=== PATIENT | female | born 1950 | race Caucasian/White ===

== ENCOUNTER 2020-04-25 10:00 | Emergency (ER) | payer OTHER ==
[2020-04-25] MEDS ORDERED: MORPHINE 4 MG/ML SYR ONE (10:49)
[2020-04-25] MEDS ORDERED: DIAZEPAM 10 MG/2 ML INJ SYRINGE ONE (10:49)
[2020-04-25] MEDS ORDERED: ONDANSETRON 4 MG/2 ML VIAL ONE (10:50)
[2020-04-25] MEDS ORDERED: dexAMETHasone 10 MG/ML VIAL ONE (10:50)
--- NOTE | 2020-04-25 11:42 | RAD REPORT ---
EXAM DESCRIPTION: US - Extremity Venous Uni Ltd - 04/25/2020 10:55 am CLINICAL HISTORY: PAIN, left leg COMPARISON: None. TECHNIQUE: Real-time sonographic evaluation of the left lower extremity deep venous system was perfo rmed. FINDINGS: Normal compressibility, flow augmentation, phasic flow and spontaneous flow are identified in the left lower extremity common femoral, superficial femoral, popliteal and posterior tibial vein s. No intraluminal filling defects seen. IMPRESSION: No DVT in the left lower extremity.
[2020-04-25] MEDS ORDERED: FENTANYL CITR 100 MCG/2 ML ONE (14:12)
--- NOTE | 2020-04-25 15:46 | RAD REPORT ---
EXAM DESCRIPTION: MRI - Lumbar Spine Wo Con - 04/25/2020 2:38 pm CLINICAL HISTORY: Left radiculopathy COMPARISON: None. TECHNIQUE: Sagittal T1, T2 and STIR weighted sequences were obtained. Axial T1 and T2 sequences were obtained through the lumbar disc levels. FINDINGS: Very large disc bulge L1-2 with disc space narrowing and osteophytes. The thecal sac measu res 7.5 millimeters. Lateral recesses are narrowed. Moderate to marked narrowing of the neural forami na. Abnormal signal involves vertebral endplates of L1 and L2. Disc bulge and facet hypertrophy L2-3 resulting in moderate narrowing of the right neural foramina Disc bulge, ligamentum flavum facet hypertrophy L3-4. The thecal sac measures 7.5 millimeters. Modera te narrowing of the right mild to moderate narrowing left neural foramina Disc bulge with annular fissure L4-5. Ligamentum flavum and facet hypertrophy. Thecal sac measures 9 millimeters. Mild to moderate narrowing of the right and mild narrowing of the neural foramina Spondylosis L5-S1 resulting in moderate narrowing of the left neural foramina Disc bulge T12-L1 IMPRESSION: Spondylosis L1-2 result in mild to moderate central spinal stenosis. There is also moder [id number] bilateral foraminal stenosis. Abnormal signal which involves the vertebral endplates pr obably degenerative in nature. Inflammation/infection can also have this appearance and should be cor related clinically with appropriate lab values. Spondylosis L3-4 resulting in mild to moderate central spinal stenosis
--- NOTE | 2020-04-25 17:37 | RAD REPORT ---
EXAM DESCRIPTION: RAD - Hip Left 2 View - 04/25/2020 3:27 pm CLINICAL HISTORY: Left hip pain FINDINGS: No fracture or dislocation is seen. Bones are osteoporotic. Mild osteoarthritis involves the left hip
--- NOTE | 2020-04-25 17:40 | ER ---
Nurse's Notes [facility] Name: Sherrie Kim Age: 69 yrs Sex: Female : 1950 Arrival Date: 04/25/2020 Time: 10:01 Bed 18 Private MD: Sherrie Romero Diagnosis: Sciatica, left side Presentation: 04/25 10:11 Chief complaint: EMS states: "Pt is reporting left hip pain that travels down her left jd3 leg. reports it feels like her sciatic pain.". Coronavirus screen: At this time, the client does not indicate any symptoms associated with coronavirus-19. Ebola Screen: Patient negative for fever greater than or equal to 101.5 degrees Fahrenheit, and additional compatible Ebola Virus Disease symptoms. Initial Sepsis Screen: Does the patient meet any 2 criteria? No. Patient's initial sepsis screen is negative. Does the patient have a suspected source of infection? No. Patient's initial sepsis screen is negative. Risk Assessment: Do you want to hurt yourself or someone else? Patient reports no desire to harm self or others. Onset of symptoms was April 25, 2020. 10:11 Method Of Arrival: EMS: [facility] jd3 10:11 Acuity: NILESH 3 jd3 Historical: - Allergies: 10:15 GABAPENTIN; jd3 - Home Meds: 10:15 Omeprazole Oral [Active]; atorvastatin oral oral [Active]; ibuprofen Oral [Active]; jd3 metaxalone oral oral [Active]; - PMHx: 10:15 sciatic pain; jd3 - Immunization history:: Adult Immunizations unknown. - Social history:: Smoking status: unknown. Screenin:18 Abuse screen: Denies threats or abuse. Nutritional screening: No deficits noted. jd3 Tuberculosis screening: No symptoms or risk factors identified. Fall Risk Ambulatory Aid- None/Bed Rest/Nurse Assist (0 pts). Gait- Normal/Bed Rest/Wheelchair (0 pts) Mental Status- Oriented to own ability (0 pts). Total Tello Fall Scale indicates No Risk (0-24 pts). Assessment: 10:17 General: Appears in no apparent distress. uncomfortable, Behavior is calm, cooperative, jd3 appropriate for age. Pain: Complains of pain in left hip Pain radiates to left leg Quality of pain is described as sharp, shooting. Neuro: Level of Consciousness is awake, alert, obeys commands, Oriented to person, place, time, situation. Cardiovascular: Denies chest pain, Capillary refill < 3 seconds Patient's skin is warm and dry. Respiratory: Airway is patent Respiratory effort is even, unlabored, Respiratory pattern is regular, symmetrical, Denies cough, shortness of breath. GI: No signs and/or symptoms were reported involving the gastrointestinal system. : No signs and/or symptoms were reported regarding the genitourinary system. EENT: No signs and/or symptoms were reported regarding the EENT system. Derm: Skin is intact, Skin is dry, Skin is normal, Skin temperature is warm. Musculoskeletal: Circulation, motion, and sensation intact. Range of motion: limited in left hip. 11:30 Reassessment: Patient appears in no apparent distress at this time. No changes from jd3 previously documented assessment. Patient and/or family updated on plan of care and expected duration. Pain level reassessed. Patient is alert, oriented x 3, equal unlabored respirations, skin warm/dry/pink. 12:30 Reassessment: Patient appears in no apparent distress at this time. No changes from jd3 previously documented assessment. Patient and/or family updated on plan of care and expected duration. Pain level reassessed. Patient is alert, oriented x 3, equal unlabored respirations, skin warm/dry/pink. 13:32 Reassessment: Patient appears in no apparent distress at this time. Patient and/or jd3 family updated on plan of care and expected duration. Pain level reassessed. Patient is alert, oriented x 3, equal unlabored respirations, skin warm/dry/pink. 14:30 Reassessment: Patient appears in no apparent distress at this time. No changes from jd3 previously documented assessment. Patient and/or family updated on plan of care and expected duration. Pain level reassessed. Patient is alert, oriented x 3, equal unlabored respirations, skin warm/dry/pink. 15:39 Reassessment: Patient appears in no apparent distress at this time. Patient and/or jd3 family updated on plan of care and expected duration. Pain level reassessed. Patient is alert, oriented x 3, equal unlabored respirations, skin warm/dry/pink. pt reports some relief from pain medication, but continues to reports pain, provider notified. 16:47 Reassessment: Patient appears in no apparent distress at this time. Patient and/or jd3 family updated on plan of care and expected duration. Pain level reassessed. Patient is alert, oriented x 3, equal unlabored respirations, skin warm/dry/pink. awaiting results. 18:00 Reassessment: Patient appears in no apparent distress at this time. Patient and/or jd3 family updated on plan of care and expected duration. Pain level reassessed. Patient is alert, oriented x 3, equal unlabored respirations, skin warm/dry/pink. Patient states feeling better. 18:20 Reassessment: Patient appears in no apparent distress at this time. Patient and/or jd3 family updated on plan of care and expected duration. Pain level reassessed. Patient is alert, oriented x 3, equal unlabored respirations, skin warm/dry/pink. Vital Signs: 10:15 BP 122 / 68; Pulse 60; Resp 16 S; Temp 97.9(TE); Pulse Ox 100% on R/A; Weight 90.72 kg jd3 (R); Height 5 ft. 2 in. (157.48 cm) (R); Pain 10/10; 13:32 BP 129 / 79; Pulse 89; Resp 17 S; Pulse Ox 98% on R/A; jd3 15:39 BP 129 / 74; Pulse 97; Resp 17 S; Pulse Ox 96% on R/A; jd3 16:48 BP 119 / 71; Pulse 98; Resp 17 S; Pulse Ox 95% on R/A; jd3 17:59 BP 128 / 81; Pulse 103; Resp 17 S; Pulse Ox 95% on R/A; jd3 10:15 Body Mass Index 36.58 (90.72 kg, 157.48 cm) jd3 ED Course: 10:01 Patient arrived in ED. am2 10:03 Sherrie Romero FNP-C is Private Physician. am2 10:03 Alfredo Gomez PA is [facility]. jmm 10:03 Alexander Woodson MD is Attending Physician. jmm 10:11 Hector Paris, LADARIUS is Primary Nurse. jd3 10:12 Triage completed. jd3 10:16 Arm band placed on. jd3 10:18 Patient has correct armband on for positive identification. Bed in low position. Call jd3 light in reach. Side rails up X2. Pulse ox on. NIBP on. 10:28 Inserted saline lock: 24 gauge in right hand, using aseptic technique. jd3 10:55 US Extremity Venous Unilateral Ltd In Process Unspecified. EDMS 14:38 MRI Lumbar Spine wo Con In Process Unspecified. EDMS 15:27 Hip Left 2 View XRAY In Process Unspecified. EDMS 17:39 Julian Saxena MD is Referral Physician. [facility] 17:59 No provider procedures requiring assistance completed. jd3 18:20 IV discontinued, intact, bleeding controlled, No redness/swelling at site. Pressure jd3 dressing applied. Administered Medications: 10:42 Drug: Zofran (Ondansetron) 4 mg Route: IVP; Site: right hand; jd3 11:40 Follow up: Response: No adverse reaction jd3 10:42 Drug: Valium 5 mg Route: IVP; Site: right hand; jd3 11:40 Follow up: Response: No adverse reaction jd3 10:42 Drug: Decadron - Dexamethasone 10 mg Route: IVP; Site: right hand; jd3 11:40 Follow up: Response: No adverse reaction jd3 10:43 Drug: morphine 4 mg Route: IVP; Site: right hand; jd3 11:40 Follow up: Response: No adverse reaction; RASS: Alert and Calm (0) jd3 14:00 Drug: fentaNYL (PF) 50 mcg Route: IVP; Site: right hand; jd3 15:00 Follow up: Response: No adverse reaction; RASS: Alert and Calm (0) jd3 17:59 Drug: Soma (carisoprodol) 350 mg Route: PO; jd3 18:20 Follow up: Response: No adverse reaction jd3 Outcome: 17:40 Discharge ordered by . [facility] 18:20 Discharged to home via wheelchair, with family. jd3 18:20 Condition: stable 18:20 Discharge instructions given to patient, Instructed on discharge instructions, follow up and referral plans. medication usage, Demonstrated understanding of instructions, follow-up care, medications, Prescriptions given X 2. 18:20 Patient left the ED. jd3 Signatures: Dispatcher [employer] EDMS Alfredo Gomez PA PA jmm Moreno, Amanda am2 Paris, Hector, RN RN jd3
--- NOTE | 2020-04-25 17:40 | EDPHYS ---
Physician Documentation [facility] Name: Sherrie Kim Age: 69 yrs Sex: Female : 1950 Arrival Date: 04/25/2020 Time: 10:01 Bed 18 Private MD: Sherrie Romero ED Physician Alexander Woodson HPI: 04/25 10:18 This 69 yrs old Female presents to ER via EMS with complaints of Hip Pain. jmm 10:18 The patient or guardian reports pain. The complaints affect the buttocks and left leg jmm and left hip. Onset: The symptoms/episode began/occurred this morning. Modifying factors: The symptoms are alleviated by remaining still, the symptoms are aggravated by any movement. Associated signs and symptoms: Pertinent negatives: incontinence, weakness. The patient has experienced similar episodes in the past, several times. Historical: - Allergies: 10:15 GABAPENTIN; jd3 - Home Meds: 10:15 Omeprazole Oral [Active]; atorvastatin oral oral [Active]; ibuprofen Oral [Active]; jd3 metaxalone oral oral [Active]; - PMHx: 10:15 sciatic pain; jd3 - Immunization history:: Adult Immunizations unknown. - Social history:: Smoking status: unknown. ROS: 10:18 Constitutional: Negative for fever, chills, and weight loss, Cardiovascular: Negative jmm for chest pain, palpitations, and edema, Respiratory: Negative for shortness of breath, cough, wheezing, and pleuritic chest pain. 10:18 MS/extremity: Positive for pain. 10:18 All other systems are negative. Exam: 10:18 Constitutional: This is a well developed, well nourished patient who is awake, alert, jmm and in no acute distress. Head/Face: atraumatic. Eyes: EOMI, no conjunctival erythema appreciated ENT: Moist Mucus Membranes Neck: Trachea midline, Supple Chest/axilla: Normal chest wall appearance and motion. Cardiovascular: Regular rate and rhythm. No edema appreciated Respiratory: Normal respirations, no respiratory distress appreciated Abdomen/GI: Non distended, soft Back: Normal ROM Skin: General appearance color normal 10:18 Musculoskeletal/extremity: left leg pain on ROM. 10:18 Neuro: Orientation: is normal, Mentation: is normal, Memory: is normal. 10:18 Psych: Behavior/mood is pleasant, cooperative. Vital Signs: 10:15 BP 122 / 68; Pulse 60; Resp 16 S; Temp 97.9(TE); Pulse Ox 100% on R/A; Weight 90.72 kg jd3 (R); Height 5 ft. 2 in. (157.48 cm) (R); Pain 10/10; 13:32 BP 129 / 79; Pulse 89; Resp 17 S; Pulse Ox 98% on R/A; jd3 15:39 BP 129 / 74; Pulse 97; Resp 17 S; Pulse Ox 96% on R/A; jd3 16:48 BP 119 / 71; Pulse 98; Resp 17 S; Pulse Ox 95% on R/A; jd3 17:59 BP 128 / 81; Pulse 103; Resp 17 S; Pulse Ox 95% on R/A; jd3 10:15 Body Mass Index 36.58 (90.72 kg, 157.48 cm) jd3 MDM: 10:12 Patient medically screened. sawyer 17:38 Data reviewed: vital signs, nurses notes. Counseling: I had a detailed discussion with nghia the patient and/or guardian regarding: the historical points, exam findings, and any diagnostic results supporting the discharge/admit diagnosis, lab results, radiology results, the need for outpatient follow up, to return to the emergency department if symptoms worsen or persist or if there are any questions or concerns that arise at home. ED course: Pain mildly relieved in the ED. Patient is advised to follow up with spine/ortho/pain management for further evaluation. Patient understood and agrees with the plan of care. . 04/25 10:20 Order name: US Extremity Venous Unilateral Ltd; Complete Time: 11:56 [facility] 04/25 13:45 Order name: MRI Lumbar Spine wo Con; Complete Time: 15:50 [facility] 04/25 14:07 Order name: Hip Left 2 View XRAY; Complete Time: 17:38 [facility] 04/25 10:17 Order name: Saline Lock; Complete Time: 10:28 [facility] Administered Medications: 10:42 Drug: Zofran (Ondansetron) 4 mg Route: IVP; Site: right hand; jd3 11:40 Follow up: Response: No adverse reaction jd3 10:42 Drug: Valium 5 mg Route: IVP; Site: right hand; jd3 11:40 Follow up: Response: No adverse reaction jd3 10:42 Drug: Decadron - Dexamethasone 10 mg Route: IVP; Site: right hand; jd3 11:40 Follow up: Response: No adverse reaction jd3 10:43 Drug: morphine 4 mg Route: IVP; Site: right hand; jd3 11:40 Follow up: Response: No adverse reaction; RASS: Alert and Calm (0) jd3 14:00 Drug: fentaNYL (PF) 50 mcg Route: IVP; Site: right hand; jd3 15:00 Follow up: Response: No adverse reaction; RASS: Alert and Calm (0) jd3 17:59 Drug: Soma (carisoprodol) 350 mg Route: PO; jd3 18:20 Follow up: Response: No adverse reaction jd3 Disposition: 04/26 09:45 Co-signature as Attending Physician, Alexander Woodson MD I agree with the assessment and sawyer plan of care. Disposition: 04/25/20 17:40 Discharged to Home. Impression: Sciatica, left side. - Condition is Stable. - Discharge Instructions: Sciatica. - Prescriptions for Prednisone 20 mg Oral Tablet - take 3 tablet by ORAL route once daily for 5 days; 15 tablet. orphenadrine citrate 100 mg Oral Tablet Sustained Release - take 1 tablet by ORAL route 2 times per day As needed; 20 tablet. - Medication Reconciliation Form, Thank You Letter, Antibiotic Education, Prescription Opioid Use form. - Follow up: Julian Saxena MD; When: 2 - 3 days; Reason: Recheck today's complaints, Continuance of care, Re-evaluation by your physician. Signatures: Dispatcher [employer] Alexander Donato MD MD cha Mickail, Joel, PA PA jmm Davies, Jonathon RN RN jd3 Corrections: (The following items were deleted from the chart) 04/25 18:20 17:40 04/25/2020 17:40 Discharged to Home. Impression: Sciatica, left side. Condition jd3 is Stable. Forms are Medication Reconciliation Form, Thank You Letter, Antibiotic Education, Prescription Opioid Use. Follow up: Julian Saxena; When: 2 - 3 days; Reason: Recheck today's complaints, Continuance of care, Re-evaluation by your physician. nghia
[2020-04-25] MEDS ORDERED: carisoprodoL 350 MG TAB PO ONE (18:00)
[2020-04-25 23:58] VITALS: TEMP 97.9
[2020-04-26 00:24] VITALS: O2SAT 95
[2020-04-26 00:26] VITALS: BP 128/81
== END 2020-04-25 18:20 | disposition home or self-care (01) ==
LOC: ER 10:00
DX: M54.32 Sciatica, left side (principal)
CPT/HCPCS: 73502; 93971; 72148; J3360; J3010; J1100; J2405; 96374; 96375; 99284

== ENCOUNTER 2020-05-05 12:45 | Emergency (ER) | payer OTHER ==
[2020-05-05 13:52] LABS: Absolute Lymphocytes (CBC) 4.4 K/uL (0.7-4.9); Basophils % 0.2 % (0-1.3); MPV 10.5 fL (7.6-11.3)
[2020-05-05 14:07] LABS: Urine Bacteria <20 /HPF (<20); Urine RBC <5 /HPF (NONE SEEN)
[2020-05-05 14:15] LABS: Albumin 3.4 g/dL (3.4-5.0); Bilirubin Direct 0.3 mg/dL (0-0.2); Bilirubin Total 0.8 mg/dL (0.2-1.0); Potassium 3.2 mmol/L (3.5-5.1); Protein, Total 7.6 g/dL (6.4-8.2)
[2020-05-05 14:20] LABS: Urine Blood NEGATIVE (NEG); Urine Protein 1+ (NEG); Urine pH 7.5 (5.0-7.0)
[2020-05-05] MEDS ORDERED: ONDANSETRON 4 MG/2 ML VIAL ONE ×2 (14:34→15:44)
[2020-05-05] MEDS ORDERED: NA CHLORIDE 0.9% 1,000 ML ONE ×2 (14:34→16:51)
[2020-05-05] MEDS ORDERED: FENTANYL CITR 100 MCG/2 ML ONE (14:34)
[2020-05-05 14:38] LABS: Blood Morphology Comment NOT SEEN (NOT SEEN); Platelet Estimate ADEQ
[2020-05-05] MEDS ORDERED: KCL 20 MEQ/100 mL IVPB 20 MEQ/100 ML BAG IV ONE (15:04)
--- NOTE | 2020-05-05 15:23 | RAD REPORT ---
EXAM DESCRIPTION: CT - [id number] - 05/05/2020 3:00 pm CLINICAL HISTORY: left arm weakness, headache COMPARISON: Abdomen Pelvis W Contrast dated 05/05/2020 TECHNIQUE: Axial 5 mm thick images of the head were obtained. Axial 2 mm thick images of the cervic al spine were obtained with sagittal and coronal reconstruction images generated and reviewed. All CT scans are performed using dose optimization technique as appropriate and may include automated exposure control or mA/KV adjustment according to patient size. FINDINGS: No hemorrhage or focal mass lesions seen. Cortical and subcortical diminished attenuation is present throughout much of the right cerebral hemisphere in the middle cerebral artery distributio n. Degree of decreased attenuation is variable. No midline shift or significant mass effect. Ramos mat ter - white matter differentiation is lost in several areas. No extra-axial fluid collections. Mastoi d air cells and paranasal sinuses are clear. No globe or orbit abnormality seen. Cervical body height and alignment are normal. No disk space narrowing. No fracture or acute bony abn ormality. Prominent facet joint degenerative change causes bilateral foraminal stenosis at C4-5 and C 5-6. Central canal detail is inherently limited. No paraspinal mass or hematoma. 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 The stroke invol ves all or most of the right middle cerebral artery distribution. This is suspected to be variable in age and may have occurred over multiple episodes. No acute cervical spine finding. Cervical spine degenerative changes present as detailed.
--- NOTE | 2020-05-05 15:35 | RAD REPORT ---
EXAM DESCRIPTION: CT - Abdomen Pelvis W Contrast - 05/05/2020 3:06 pm CLINICAL HISTORY: ABD PAIN COMPARISON: No comparisons TECHNIQUE: Biphasic, helical CT imaging of the abdomen and pelvis was performed following 100 ml non -ionic IV contrast. No oral contrast given. All CT scans are performed using dose optimization technique as appropriate and may include automated exposure control or mA/KV adjustment according to patient size. FINDINGS: No suspicious findings in the lung bases. The liver, spleen, and pancreas show no suspicious findings. Gallbladder is absent. No biliary tree d ilatation. Symmetric renal function is seen with no hydronephrosis or suspicious renal mass. No pyelonephritis o r acute parenchymal process. No bladder abnormalities. No adrenal abnormalities. Uterus and ovaries a re normal for age. Prominent circumferential wall thickening of the distal esophagus is present partially visualized on this study. Patient has a small hiatal hernia. No stomach, small bowel or colonic acute finding. Lluvia ent has moderate left-sided diverticulosis. No free air, free fluid or inflammatory stranding. No he rnia, mass or bulky lymphadenopathy. No suspicious bony findings. Advanced degenerative change at at the L1-2 disc levels. IMPRESSION: Prominent circumferential wall thickening of the distal esophagus only partially imaged on this abdomen CT study. Esophagitis and malignancy etiologies cannot be excluded on this limited vi sualization. Correlation is needed with any corresponding symptoms and follow-up imaging can be performed as warra nted. Remainder of the study, as detailed above, without acute or significant finding.
[2020-05-05 16:25] LABS: Urine Glucose NEGATIVE (Negative)
[2020-05-05] MEDS ORDERED: NA CHLORIDE 0.9% 100 ML ONE (16:51)
[2020-05-05] MEDS ORDERED: METRONIDAZOLE 500mg IVPB 500 MG/100 ML BAG IV ONE (16:53)
[2020-05-05] MEDS ORDERED: FOLIC ACID 5 MG/ML VIAL ONE (16:53)
[2020-05-05] MEDS ORDERED: CIPROFLOXACIN 400mg IV 400 MG/200 ML BAG IV ONE (16:53)
[2020-05-05] MEDS ORDERED: ASPIRIN 81 MG CHEWABLE TABLET ONE (17:00)
--- NOTE | 2020-05-05 17:14 | RAD REPORT ---
EXAM DESCRIPTION: CT - Head angio - 05/05/2020 4:44 pm CLINICAL HISTORY: left arm/hand weakness TECHNIQUE: During dynamic enhancement using nonionic IV contrast, axial 1 millimeter thick images of the head were obtained. Sagittal and axial reconstruction images were generated using MIP technique and reviewed. All CT scans are performed using dose optimization technique as appropriate and may include automated exposure control or mA/KV adjustment according to patient size. COMPARISON: CT head same date FINDINGS: No aneurysm or vascular malformation identified. Major venous sinuses are patent. The petrous and cavernous segments of the right internal carotid artery are occluded. Cervical portio ns of the right internal carotid are artery detailed in separate report. The supraclinoid tip of the right internal carotid artery is opacified. Distal left internal carotid artery shows atherosclerotic calcification but no significant luminal narrowing. Bilateral anterior cerebral arteries show no abnormality. Anterior communicating artery is present. L eft middle cerebral artery shows no suspicious finding. No named branch occlusion seen in the right m iddle cerebral artery distribution. There is an overall diminished vascular pattern involving the rig ht cerebral hemisphere. No vasculitis findings identified. Distal vertebral arteries and basilar artery show no suspicious findings. Posterior cerebral arteries show no significant disease. Small posterior communicating arteries are identifiable. IMPRESSION: Occlusion of the right internal carotid artery from skullbase to the supraclinoid segme nt. Cervical portions of the right internal carotid artery are detailed in separate report. Overall hypoperfusion of the right middle cerebral arteries without a specific named branch occlusion . Anterior communicating artery and small posterior communicating arteries are identifiable. The limited collateral pathways to the right middle cerebral artery distribution may account for the multiple variably aged areas of infarction in the right cerebral hemisphere.
--- NOTE | 2020-05-05 17:17 | RAD REPORT ---
EXAM DESCRIPTION: CT - Neck Angio - 05/05/2020 4:44 pm CLINICAL HISTORY: left arm/hand weakness, right cerebral CVA, abnormal CT Head TECHNIQUE: During dynamic enhancement using nonionic IV contrast, axial 2 mm thick images of the nec k were obtained. Sagittal and axial reconstruction images were generated using MIP technique and revi ewed. All CT scans are performed using dose optimization technique as appropriate and may include automated exposure control or mA/KV adjustment according to patient size. COMPARISON: CT head same date, CTA head same date FINDINGS: No aneurysm or vascular malformation identified. No aortic arch or great vessel origin abnormality seen. Vertebral artery origins unremarkable as well . Right internal carotid artery is occluded from origin to the supraclinoid intracranial termination. No contrast identifiable within the lumen of the right internal carotid artery. The left internal ca rotid artery and bilateral common carotid arteries show no suspicious finding. No basilar artery abno rmality. IMPRESSION: Occlusion of the right internal carotid artery from origin to supraclinoid intracranial termination.
--- NOTE | 2020-05-05 18:10 | EDPHYS ---
Physician Documentation [facility] Name: Sherrie Kim Age: 69 yrs Sex: Female : 1950 Arrival Date: 05/05/2020 Time: 12:53 Bed 15 Private MD: ED Physician Adrian Adams HPI: 05/05 13:25 This 69 yrs old Female presents to ER via Wheelchair with complaints of cp Diarrhea, Nausea. 13:25 The patient presents to the emergency department with nausea, that is mild, abdominal cp pain, of the left upper quadrant and left lower quadrant, and does not radiate. Onset: The symptoms/episode began/occurred this morning. 13:25 Possible causes: unknown. Associated signs and symptoms: Pertinent positives: diarrhea, cp vomiting, Pertinent negatives: constipation, fever, GI bleeding. Severity of symptoms: in the emergency department the symptoms are unchanged despite home interventions. Patient also c/o left arm and left hand weakness times 1 month. Patient reports difficulty holding phone and dropping items with left hand for 1 month. Patient denies being evaluated for this left arm and hand weakness. Historical: - Allergies: 12:59 GABAPENTIN; ca1 - PMHx: 12:59 sciatic pain; High Cholesterol; ca1 - PSHx: 13:12 Cholecystectomy; Tubal ligation; ca1 - Immunization history:: Flu vaccine is not up to date. - Social history:: Smoking status: Patient reports the use of cigarette tobacco products, smokes one-half pack cigarettes per day. ROS: 13:30 Constitutional: Negative for body aches, chills, fever, poor PO intake. cp 13:30 Eyes: Negative for injury, pain, redness, and discharge. cp 13:30 ENT: Negative for ear pain, sore throat, difficulty swallowing, difficulty handling secretions. 13:30 Cardiovascular: Negative for chest pain, edema, palpitations. 13:30 Respiratory: Negative for cough, shortness of breath, wheezing. 13:30 Abdomen/GI: Positive for abdominal pain, nausea, diarrhea, Negative for vomiting, constipation, black/tarry stool, rectal bleeding. 13:30 Back: Negative for pain at rest, pain with movement. 13:30 Skin: Negative for cellulitis, rash. 13:30 Neuro: Positive for weakness, of the left hand and left arm, Negative for altered mental status, dizziness, headache, numbness, speech changes, syncope. 13:30 All other systems are negative. Exam: 13:25 ECG was reviewed by the Attending Physician. cp 13:33 Constitutional: The patient appears in no acute distress, alert, awake, cp non-diaphoretic, non-toxic, well developed, well nourished. 13:33 Head/Face: Normocephalic, atraumatic. cp 13:33 Eyes: Periorbital structures: appear normal, Pupils: equal, round, and reactive to light and accomodation, Extraocular movements: intact throughout, Conjunctiva: normal, no exudate, no injection, Sclera: no appreciated abnormality, Lids and lashes: appear normal, bilaterally. 13:33 ENT: External ear(s): are unremarkable, Nose: is normal, Mouth: Lips: moist, Oral mucosa: moist, Posterior pharynx: Airway: no evidence of obstruction, patent. 13:33 Neck: ROM/movement: is normal, is supple, without pain, no range of motions limitations. 13:33 Chest/axilla: Inspection: normal, Palpation: is normal, no crepitus, no tenderness. 13:33 Cardiovascular: Rate: tachycardic, Rhythm: regular, Edema: is not appreciated, JVD: is not appreciated. 13:33 Respiratory: the patient does not display signs of respiratory distress, Respirations: normal, no use of accessory muscles, no retractions, labored breathing, is not present, Breath sounds: are clear throughout, no decreased breath sounds, no stridor, no wheezing. 13:33 Abdomen/GI: Inspection: abdomen appears normal, Bowel sounds: active, all quadrants, Palpation: soft, in all quadrants, mild abdominal tenderness, in the right upper quadrant, left upper quadrant and left lower quadrant, rebound tenderness, is not appreciated, voluntary guarding, is not appreciated, involuntary guarding, is not appreciated. 13:33 Back: pain, is absent, ROM is normal. 13:33 Neuro: Orientation: to person, place \\T\\ time. Mentation: is normal, Cerebellar function: Romberg testing is abnormal, left arm abnormal, unable to perform with left hand, heel to mccartney testing is normal, Motor: moves all fours, strength is 4/5 in the left hand and left arm, Sensation: no obvious gross deficits. Vital Signs: 12:55 BP 105 / 84; Pulse 140; Resp 16 S; Temp 97.6(TE); Pulse Ox 98% on R/A; Weight 90.72 kg ca1 (R); Height 5 ft. 2 in. (157.48 cm) (R); Pain 10/10; 13:11 Pulse 125 MON; ca1 13:13 Pulse 116; Resp 16 S; Pulse Ox 97% on R/A; jd3 15:01 BP 127 / 89; Pulse 120; Resp 18 S; Pulse Ox 97% on R/A; jd3 17:05 BP 130 / 90; Pulse 107; Resp 17 S; Pulse Ox 97% on R/A; jd3 18:29 BP 147 / 89; Pulse 109; Resp 17 S; Pulse Ox 97% on R/A; jd3 20:00 BP 125 / 82; Pulse 120; Resp 17; Pulse Ox 98% on R/A; jb4 21:15 BP 111 / 82; Pulse 117; Resp 16; Pulse Ox 98% on R/A; jb4 22:25 BP 106 / 76; Pulse 123; Resp 16; Pulse Ox 100% on R/A; jb4 12:55 Body Mass Index 36.58 (90.72 kg, 157.48 cm) ca1 NIH Stroke Scale Scores: 13:33 NIHSS Score: 3 cp MDM: 13:22 Patient medically screened. cp 14:00 Differential diagnosis: gastritis, diverticulitis, viral gastroenteritis, cp gastroenteritis, colitis, diverticulitis, CVA. 15:30 Physician consultation: Armand Gonzalez MD was called at 15:30, was contacted at 15:30, regarding patient's condition, results of head CT, after a discussion of the case, a recommendation for transfer for higher level of care is made, due to concern for possible occlusion of large cerebral vessel. Wants CT angio of head and neck performed. 16:00 Physician consultation: DR Longoria, neurologist \\[facility], will cp accept patient as transfer but at this time no interventional procedures are recommended due to symptom onset times 1 month approximately. 17:30 Data reviewed: vital signs, nurses notes, lab test result(s), EKG, radiologic studies, cp CT scan, plain films. 17:30 Test interpretation: by ED physician or midlevel provider: ECG. cp 05/05 13:39 Order name: Basic Metabolic Panel cp 05/05 13:39 Order name: CBC with Diff; Complete Time: 14:50 cp 05/05 14:51 Interpretation: Normal except: WBC 34.00; RBC 5.10; HGB 15.7; HCT 48.0; CHERISE% 82.2; LYM% cp 13.0; MNA 1.6; NEUT A 27.9. 05/05 13:39 Order name: Hepatic Function; Complete Time: 14:23 cp 05/05 14:23 Interpretation: Normal except: ALK 140; BILID 0.3; GLOB 4.2; A/G 0.8. cp 05/05 13:39 Order name: Lipase; Complete Time: 14:23 cp 05/05 14:51 Interpretation: LIP 59; Reviewed. cp 05/05 13:39 Order name: Magnesium; Complete Time: 14:23 cp 05/05 13:39 Order name: Urine Microscopic Only; Complete Time: 14:20 cp 05/05 13:40 Order name: Basic Metabolic Panel; Complete Time: 14:23 EDMS 05/05 14:23 Interpretation: Normal except: K 3.2; CL 96; GLUC 148; BUN 30; GFR 59. cp 05/05 13:43 Order name: COVID-19 : Document "Date of Symptom Onset" if Symptomatic. 05/05 14:02 Order name: Urine Dipstick--Ancillary (enter results); Complete Time: 16:40 dm5 05/05 14:51 Interpretation: Normal except: UKET 1+; UPH 7.5; UPROT 1+. cp 05/05 14:23 Order name: Lactate 05/05 14:23 Order name: Procalcitonin; Complete Time: 17:21 cp 05/05 13:39 Order name: CT Abd/Pelvis - IV Contrast Only; Complete Time: 15:46 cp 05/05 13:39 Order name: CT Head C Spine; Complete Time: 15:29 cp 05/05 14:23 Order name: Blood Culture Adult (2) cp 05/05 14:24 Order name: Lactate; Complete Time: 16:40 EDMS 05/05 14:38 Order name: Manual Differential EDMS 05/05 16:12 Order name: CT Head Angio; Complete Time: 17:21 cp 05/05 16:12 Order name: CT Neck Angio; Complete Time: 17:21 cp 05/05 20:39 Order name: SARS-COV-2 RT PCR EDMS 05/05 13:23 Order name: EKG; Complete Time: 13:25 ca1 05/05 13:23 Order name: EKG - Nurse/Tech; Complete Time: 13:23 ca1 05/05 13:39 Order name: IV Saline Lock; Complete Time: 13:43 cp 05/05 13:39 Order name: Labs collected and sent; Complete Time: 13:43 cp 05/05 13:39 Order name: Urine Dipstick-Ancillary (obtain specimen); Complete Time: 14:00 cp EC: Rate is 123 beats/min. Rhythm is regular. CA interval is normal. QRS interval is cp normal. QT interval is normal. T waves are Inverted in lead aVR. Interpreted by me. Reviewed by me. Administered Medications: 14:36 Drug: fentaNYL (PF) 25 mcg Route: IVP; Site: left forearm; jd3 15:33 Follow up: Response: No adverse reaction; RASS: Alert and Calm (0) jd3 14:37 Drug: Zofran (Ondansetron) 4 mg Route: IVP; Site: left forearm; jd3 15:30 Follow up: Response: No adverse reaction jd3 14:38 Drug: NS 0.9% 500 ml Route: IV; Rate: bolus; Site: left forearm; jd3 15:30 Follow up: Response: No adverse reaction; IV Status: Completed infusion jd3 14:39 Drug: NS 0.9% 500 ml Route: IV; Rate: 500 ml/hr; Site: left forearm; jd3 15:30 Follow up: Response: No adverse reaction; IV Status: Completed infusion jd3 15:33 Drug: Zofran (Ondansetron) 4 mg Route: IVP; Site: left forearm; jd3 16:30 Follow up: Response: No adverse reaction jd3 15:52 Drug: Potassium Chloride 20 mEq Route: IV; Rate: calculated rate; Site: left forearm; jd3 16:50 Follow up: Response: No adverse reaction; IV Status: Completed infusion jd3 17:32 Drug: NS 0.9% 1000 ml Route: IV; Rate: 1 bolus; Site: left forearm; jd3 18:30 Follow up: Response: No adverse reaction; IV Status: Completed infusion jd3 17:32 Drug: Aspirin Chewable Tablet 324 mg Route: PO; jd3 18:30 Follow up: Response: No adverse reaction jd3 17:33 Drug: foLIC Acid 1 mg Route: IVPB; Site: left forearm; jd3 18:30 Follow up: Response: No adverse reaction; IV Status: Completed infusion jd3 17:33 Drug: Cipro (ciprofloxacin) 400 mg Volume: 200 ml; Route: IVPB; Infused Over: 60 mins; jd3 Site: left forearm; 18:30 Follow up: Response: No adverse reaction; IV Status: Completed infusion jd3 17:33 Drug: metroNIDAZOLE 500 mg Volume: 100 ml; Route: IVPB; Infused Over: 30 mins; Site: jd3 right hand; 18:30 Follow up: Response: No adverse reaction; IV Status: Completed infusion jd3 Disposition: 05/06 07:27 Co-signature as Attending Physician, Adrian Adams MD I agree with the assessment and kdr plan of care. Disposition: 05/05/20 18:09 Transfer ordered to [facility]. Diagnosis are Diverticulosis of large intestine without perforation or abscess without bleeding, Cerebral infarction, Weakness - left arm and left hand. - Reason for transfer: Higher level of care. - Accepting physician is DR Juhi Hudson. - Condition is Stable. - Problem is new. - Symptoms have improved. NIH Stroke Scale - NIH Stroke Score Date: 05/05/2020 Time: 13:33 Total Score = 3 1a. Level of Consciousness (LOC) - 0(Alert) 1b. Level of Consciousness (LOC) (Year \\T\\ Age) - 0(Both) 1c. LOC Commands (Open \\T\\ Closes Eyes/Seamer Operator) - 1(One) 2. Best Gaze (Lateral Gaze Paresis) - 0(Normal) 3. Visual Field Loss - 0(No visual loss) 4. Facial Palsy - 0(Normal) 5a. Left Arm: Motor (10-second hold) - 1(Drift) 5b. Right Arm: Motor (10-second hold) - 0(No drift) 6a. Left Leg: Motor (5-second hold - always test supine) - 0(No drift) 6b. Right Leg: Motor (5-second hold - always test supine) - 0(No drift) 7. Limb Ataxia (finger/nose \\T\\ heel/mccartney - test with eyes open) - 1(Present in one limb) 8. Sensory Loss (pinprick arms/legs/face) - 0(Normal) 9. Best Language: Aphasia (description/naming/reading) - 0(No aphasia) 10. Dysarthria (speech clarity - read or repeat words) - 0(Normal) 11. Extinction and Inattention (visual/tactile/auditory/spatial/personal) - 0(No abnormality) Initials: cp Signatures: Dispatcher [employer] EDVA Adrian Adams MD MD [facility] Alexander Mcgregor PA PA cp Julian Dolan, RN RN jb4 Hector Paris RN RN jd3 Jolie Ware RN RN ca1 Corrections: (The following items were deleted from the chart) 05/05 13:12 12:59 PSHx: None; ca1 ca1 14:37 14:23 Tran ordered. cp jd3 14:51 14:20 Normal except: WBC 34.00; RBC 5.10; HGB 15.7; HCT 48.0; CHERISE% 82.2; LYM% cp 13.0. cp 18:40 18:09 05/05/2020 18:09 Transfer ordered to [facility]. Diagnosis is Diverticulosis of large intestine without perforation or abscess without bleeding. Reason for transfer: Higher level of care. Accepting physician is Doctor. Condition is Stable. Problem is new. Symptoms have improved. cp 19:51 13:43 CORONAVIRUS ordered. EDVA EDMS 22:33 18:40 05/05/2020 18:09 Transfer ordered to [facility]. Diagnosis is Diverticulosis of large intestine without perforation or abscess without bleeding; Cerebral infarction; Weakness - left arm and left hand. Reason for transfer: Higher level of care. Accepting physician is DR Juhi Hudson. Condition is Stable. Problem is new. Symptoms have improved. cp
--- NOTE | 2020-05-05 18:10 | ER ---
Nurse's Notes [facility] Name: Sherrie Kim Age: 69 yrs Sex: Female : 1950 Arrival Date: 05/05/2020 Time: 12:53 Bed 15 Private MD: Diagnosis: Diverticulosis of large intestine without perforation or abscess without bleeding;Cerebral infarction;Weakness-left arm and left hand Presentation: 05/05 12:55 Chief complaint: Patient states: N/V/Diarrhea started this morning. Abdominal pain more ca1 on the L side. L arm weakness been x 1 month, PCP is aware of the arm weakness. Reports headache at this time. Coronavirus screen: Client denies travel out of the [place] in the last 14 days. diarrhea, nausea, vomiting. Client presents with at least one sign or symptom that may indicate coronavirus-19. Standard/surgical mask placed on the client. Provider contacted for isolation considerations. Ebola Screen: Patient negative for fever greater than or equal to 101.5 degrees Fahrenheit, and additional compatible Ebola Virus Disease symptoms Patient denies exposure to infectious person. Patient denies travel to an Ebola-affected area in the 21 days before illness onset. No symptoms or risks identified at this time. Initial Sepsis Screen: Does the patient meet any 2 criteria? No. Patient's initial sepsis screen is negative. Does the patient have a suspected source of infection? No. Patient's initial sepsis screen is negative. Risk Assessment: Do you want to hurt yourself or someone else? Patient reports no desire to harm self or others. Onset of symptoms was May 05, 2020. 12:55 Method Of Arrival: Wheelchair ca1 12:55 Acuity: NILESH 2 ca1 Historical: - Allergies: 12:59 GABAPENTIN; ca1 - PMHx: 12:59 sciatic pain; High Cholesterol; ca1 - PSHx: 13:12 Cholecystectomy; Tubal ligation; ca1 - Immunization history:: Flu vaccine is not up to date. - Social history:: Smoking status: Patient reports the use of cigarette tobacco products, smokes one-half pack cigarettes per day. Screenin:13 Abuse screen: Denies threats or abuse. Nutritional screening: No deficits noted. jd3 Tuberculosis screening: No symptoms or risk factors identified. Fall Risk IV access (20 points). Ambulatory Aid- None/Bed Rest/Nurse Assist (0 pts). Gait- Normal/Bed Rest/Wheelchair (0 pts) Mental Status- Oriented to own ability (0 pts). Total Tello Fall Scale indicates No Risk (0-24 pts). Assessment: 13:12 General: Appears in no apparent distress. comfortable, Behavior is calm, cooperative, jd3 appropriate for age. Pain: Complains of pain in chest Quality of pain is described as pressure, Is intermittent. Neuro: Level of Consciousness is awake, alert, obeys commands, Oriented to person, place, time, situation, Poke In are weak on left Weakness in left arm(s). Cardiovascular: Reports chest pain, Heart tones present Capillary refill < 3 seconds Patient's skin is warm and dry. Rhythm is irregular. Respiratory: Airway is patent Respiratory effort is even, unlabored, Respiratory pattern is regular, symmetrical, Breath sounds are clear bilaterally. Denies cough, shortness of breath. GI: Abdomen is round non-distended, Patient currently denies abdominal pain, diarrhea, nausea, vomiting. : No signs and/or symptoms were reported regarding the genitourinary system. EENT: No signs and/or symptoms were reported regarding the EENT system. Derm: Skin is intact, Skin is dry, Skin is normal, Skin temperature is warm. Musculoskeletal: Circulation, motion, and sensation intact. Range of motion: limited in left arm. 15:01 Reassessment: Patient appears in no apparent distress at this time. No changes from jd3 previously documented assessment. Patient and/or family updated on plan of care and expected duration. Pain level reassessed. Patient is alert, oriented x 3, equal unlabored respirations, skin warm/dry/pink. 17:03 Reassessment: Patient appears in no apparent distress at this time. Patient and/or jd3 family updated on plan of care and expected duration. Pain level reassessed. Patient is alert, oriented x 3, equal unlabored respirations, skin warm/dry/pink. 18:28 Reassessment: Patient appears in no apparent distress at this time. No changes from jd3 previously documented assessment. Patient and/or family updated on plan of care and expected duration. Pain level reassessed. Patient is alert, oriented x 3, equal unlabored respirations, skin warm/dry/pink. 19:00 Reassessment: Patient appears in no apparent distress at this time. Patient and/or jb4 family updated on plan of care and expected duration. Pain level reassessed. Patient is alert, oriented x 3, equal unlabored respirations, skin warm/dry/pink. PT continues to have weakness in her left hand and arm and is unable to close her left hand. 20:00 Reassessment: Patient appears in no apparent distress at this time. No changes from jb4 previously documented assessment. Patient and/or family updated on plan of care and expected duration. Pain level reassessed. 21:00 Reassessment: Patient appears in no apparent distress at this time. Patient and/or jb4 family updated on plan of care and expected duration. Pain level reassessed. Patient is alert, oriented x 3, equal unlabored respirations, skin warm/dry/pink. PT ambulated to the restroom with a steady gait. 21:44 Reassessment: Patient appears in no apparent distress at this time. Patient and/or jb4 family updated on plan of care and expected duration. Pain level reassessed. Patient is alert, oriented x 3, equal unlabored respirations, skin warm/dry/pink. 22:20 Reassessment: PT reports feeling sweaty. Is diaphoretic, manual B/p is noted to be jb4 98/74 heart rate is 138. Provider notified and at the bedside. Pt assisted back into bed. 22:25 Reassessment: Pt is no longer diaphoretic. Heart rate has decreased to 123. B/p is jb4 106/76. PT reports feeling better laying down. Provider okayed pt to be transferred by EMS. PT remains A\T\Ox4 with even and unlabored respirations. Denies pain. Vital Signs: 12:55 BP 105 / 84; Pulse 140; Resp 16 S; Temp 97.6(TE); Pulse Ox 98% on R/A; Weight 90.72 kg ca1 (R); Height 5 ft. 2 in. (157.48 cm) (R); Pain 10/10; 13:11 Pulse 125 MON; ca1 13:13 Pulse 116; Resp 16 S; Pulse Ox 97% on R/A; jd3 15:01 BP 127 / 89; Pulse 120; Resp 18 S; Pulse Ox 97% on R/A; jd3 17:05 BP 130 / 90; Pulse 107; Resp 17 S; Pulse Ox 97% on R/A; jd3 18:29 BP 147 / 89; Pulse 109; Resp 17 S; Pulse Ox 97% on R/A; jd3 20:00 BP 125 / 82; Pulse 120; Resp 17; Pulse Ox 98% on R/A; jb4 21:15 BP 111 / 82; Pulse 117; Resp 16; Pulse Ox 98% on R/A; jb4 22:25 BP 106 / 76; Pulse 123; Resp 16; Pulse Ox 100% on R/A; jb4 12:55 Body Mass Index 36.58 (90.72 kg, 157.48 cm) ca1 NIH Stroke Scale Scores: 13:33 NIHSS Score: 3 cp ED Course: 12:53 Patient arrived in ED. ds1 12:58 Triage completed. ca1 12:59 Arm band placed on right wrist. ca1 13:11 Hector Paris, RN is Primary Nurse. jd3 13:11 Alexander Mcgregor PA is PHCP. cp 13:11 Adrian Adams MD is Attending Physician. cp 13:13 Patient has correct armband on for positive identification. Bed in low position. Call jd3 light in reach. Side rails up X2. equipment monitor phototypesetting on. Pulse ox on. NIBP on. 13:32 Initial lab(s) drawn, by tn, sent to lab. Inserted saline lock: 22 gauge in right kj1 forearm, using aseptic technique. Blood collected. 14:30 Inserted saline lock: 22 gauge in left forearm, using aseptic technique. jd3 15:00 CT Head C Spine In Process Unspecified. EDMS 15:07 CT Abd/Pelvis - IV Contrast Only In Process Unspecified. EDMS 16:44 CT Head Angio In Process Unspecified. EDMS 16:44 CT Neck Angio In Process Unspecified. EDMS 19:06 Primary Nurse role handed off by Hector Paris, LADARIUS jb4 19:06 Julian Dolan, LADARIUS is Primary Nurse. jb4 22:25 No provider procedures requiring assistance completed. Patient transferred, IV remains jb4 in place. Administered Medications: 14:36 Drug: fentaNYL (PF) 25 mcg Route: IVP; Site: left forearm; jd3 15:33 Follow up: Response: No adverse reaction; RASS: Alert and Calm (0) jd3 14:37 Drug: Zofran (Ondansetron) 4 mg Route: IVP; Site: left forearm; jd3 15:30 Follow up: Response: No adverse reaction jd3 14:38 Drug: NS 0.9% 500 ml Route: IV; Rate: bolus; Site: left forearm; jd3 15:30 Follow up: Response: No adverse reaction; IV Status: Completed infusion jd3 14:39 Drug: NS 0.9% 500 ml Route: IV; Rate: 500 ml/hr; Site: left forearm; jd3 15:30 Follow up: Response: No adverse reaction; IV Status: Completed infusion jd3 15:33 Drug: Zofran (Ondansetron) 4 mg Route: IVP; Site: left forearm; jd3 16:30 Follow up: Response: No adverse reaction jd3 15:52 Drug: Potassium Chloride 20 mEq Route: IV; Rate: calculated rate; Site: left forearm; jd3 16:50 Follow up: Response: No adverse reaction; IV Status: Completed infusion jd3 17:32 Drug: NS 0.9% 1000 ml Route: IV; Rate: 1 bolus; Site: left forearm; jd3 18:30 Follow up: Response: No adverse reaction; IV Status: Completed infusion jd3 17:32 Drug: Aspirin Chewable Tablet 324 mg Route: PO; jd3 18:30 Follow up: Response: No adverse reaction jd3 17:33 Drug: foLIC Acid 1 mg Route: IVPB; Site: left forearm; jd3 18:30 Follow up: Response: No adverse reaction; IV Status: Completed infusion jd3 17:33 Drug: Cipro (ciprofloxacin) 400 mg Volume: 200 ml; Route: IVPB; Infused Over: 60 mins; jd3 Site: left forearm; 18:30 Follow up: Response: No adverse reaction; IV Status: Completed infusion jd3 17:33 Drug: metroNIDAZOLE 500 mg Volume: 100 ml; Route: IVPB; Infused Over: 30 mins; Site: jd3 right hand; 18:30 Follow up: Response: No adverse reaction; IV Status: Completed infusion jd3 Outcome: 18:09 ER care complete, transfer ordered by MD. abrams 22:25 Transferred by ground EMS to [facility], Transfer form completed. jb4 X-rays sent w/ patient. 22:25 Condition: stable 22:25 Discharge instructions given to patient, Instructed on the need for transfer, Demonstrated understanding of instructions. 22:33 Patient left the ED. jb4 NIH Stroke Scale - NIH Stroke Score Date: 05/05/2020 Time: 13:33 Total Score = 3 1a. Level of Consciousness (LOC) - 0(Alert) 1b. Level of Consciousness (LOC) (Year \T\ Age) - 0(Both) 1c. LOC Commands (Open \T\ Closes Eyes/Auto Body Mechanic) - 1(One) 2. Best Gaze (Lateral Gaze Paresis) - 0(Normal) 3. Visual Field Loss - 0(No visual loss) 4. Facial Palsy - 0(Normal) 5a. Left Arm: Motor (10-second hold) - 1(Drift) 5b. Right Arm: Motor (10-second hold) - 0(No drift) 6a. Left Leg: Motor (5-second hold - always test supine) - 0(No drift) 6b. Right Leg: Motor (5-second hold - always test supine) - 0(No drift) 7. Limb Ataxia (finger/nose \T\ heel/mccartney - test with eyes open) - 1(Present in one limb) 8. Sensory Loss (pinprick arms/legs/face) - 0(Normal) 9. Best Language: Aphasia (description/naming/reading) - 0(No aphasia) 10. Dysarthria (speech clarity - read or repeat words) - 0(Normal) 11. Extinction and Inattention (visual/tactile/auditory/spatial/personal) - 0(No abnormality) Initials: cp Addendum: 05/09/2020 09:43 Addendum: Other faxed culture report to [facility]. pt still bd admitted to room 2239. Signatures: Dispatcher [employer] EDMS Kristen Castillo Demi ds1 Alexander Mcgregor PA PA cp Bryson, James, RN RN jb4 Hector Paris RN RN jd3 Acob, Cheryl, RN RN ca1 Luisa Hurst kj1 Corrections: (The following items were deleted from the chart) 05/05 13:12 12:59 PSHx: None; ca1 ca1 13:13 13:11 Pulse 116bpm; Resp 16bpm; Spontaneous; Pulse Ox 97% RA; jd3 jd3 18:40 13:12 Neuro: Level of Consciousness is awake, alert, obeys commands, Oriented jd3 to person, place, time, situation, jd3 18:40 13:12 Musculoskeletal: Circulation, motion, and sensation intact. Range of jd3 motion: intact in all extremities, jd3 22:33 22:25 Reassessment: Pt is no longer diaphoretic. Heart rate has decreased to jb4 123. B/p is 106/76. PT reports feeling better laying down. Provider okayed pt to be transferred by EMS jb4
[2020-05-06 01:04] VITALS: TEMP 97.6
[2020-05-06 01:18] VITALS: BP 106/76; O2SAT 100
--- NOTE | 2020-05-06 06:46 | EKG ---
Test Date: 2020-05-05 Test Time: 13:06:18 Stamping Operator: CHARLA MEASUREMENT RESULTS: Intervals: Rate: 123 WV: 134 QRSD: 74 QT: 336 QTc: 481 [place]: P: 58 WV: 134 QRS: 31 T: 27 INTERPRETIVE STATEMENTS: Sinus tachycardia with premature atrial complexes Right atrial enlargement ST & T wave abnormality, consider inferior ischemia Abnormal ECG No previous ECG available for comparison Electronically Signed On 05-06-20 06:44:13 CDT by James Chahal
== END 2020-05-05 22:33 | disposition short-term general hospital (02) ==
LOC: ER 12:45
DX: I63.9 Cerebral infarction, unspecified (principal); R29.703 NIHSS score 3; K57.30 Diverticulosis of large intestine without perforation or abscess without bleeding; F17.210 Nicotine dependence, cigarettes, uncomplicated; Z20.822 Contact with and (suspected) exposure to COVID-19; Z88.8 Allergy status to other drugs, medicaments and biological substances
CPT/HCPCS: 93005; 87040 ×2; 85025; 80048; 36415; 83735; 87205 ×4; 80076; 83605; 87077 ×2; 87186 ×2; 83690; 84145; 70450; 72125; 70496; 70498; 74177; 99285; U0003; Q9967; J3480; J3010; J7030 ×2; J2405 ×2; J0744; 81003; 81015

== ENCOUNTER 2020-08-13 10:40 | Emergency (ER) | payer OTHER ==
--- OUTSIDE RECORDS SUMMARY | 2020-08-13 11:12 | XMS REPORT | Continuity of Care Document ---
:1950 Author Organization [facility] t Address [address] [place] [address] Care Team Providers Name Role Phone Opal Salazar Primary Care Physician Mikie Hudson MD Attending Clinician Brenna LEBRON Attending Clinician Richard Cintron MD Attending Clinician Mariel Vazquez MD Attending Clinician Charla Varghese MD Attending Clinician Rashid Brown MD Attending Clinician Michael Patrick MD Attending Clinician Mikie HUDSON Attending Clinician Unavailable BRENNA Admitting Clinician Unavailable Payers Payer Name Policy Type Policy Effective Date Expiration Date Sour ce Number MEDICAID - MEDICAID [id number] 2019 SOLOMON Hart MGD CARESUPERIOR 00:00:00 - Medica l [id number]/ Ce nter /2019-Present [facility] - [id number] 2020 SOLOMON Hart MEDICARE MGD 00:00:00 - Medical CAREUNITED MEDICARE Cente r [id number] 2020-P resent MEDICAIDMEDICAID OF [id number] 2020 SOLOMON Hart [id number] 2020 00:00:00 - Medical -PresentMedicaid Center Problems Condition Condition Condition Status Onset Resolution Last Treating Co mments Source Name Details Category Date Date Treatment Clinician Date Leukocytos Leukocytos Disease Active [facility] - [facility]: Medical 00 [place] Diarrhea Diarrhea Disease [facility] - presumed presumed 00:00: Medica l infectious infectious 00 Ce nter origin origin Esophagiti Esophagiti Disease Active [facility] - 00:[facility]: Medical 00 [place] Stroke Stroke Disease Active [facility] - [facility] Medical 00 Center Allergies, Adverse Reactions, Alerts Allergy Allergy Status Severity Reaction(s) Onset Inactive Treating Comm ents Source Name Type Date Date Clinician Gabapent Propensi Active Other (See [facility] to Comments[facility] - adverse 00:00: Medical reaction 00 [place] s Social History Social Habit Start Date Stop Date Quantity Comments Source Sex Assigned At [facility] Cigarettes smoked 2020-05-09 2020-05-09 [facility] - current (pack per 00:00:00 00:00:00 [facility] day) - Reported Cigarette 2020-05-09 2020-05-09 [facility] - pack-years 00:00:00 00:00:00 [facility] Tobacco use and 2020-05-09 2020-05-09 Never used [facility] - exposure 00:00:00 00:00:00 [facility] Alcohol intake 2020-05-09 2020-05-09 Ex-drinker [facility] es - 00:00:00 00:00:00 (finding) [facility] Smoking Status Start Date Stop Date Source Current every day smoker 2020-05-09 00:00:00 [facility] Medications Ordered Filled Start Stop Current Ordering Indication Dosage Frequency Signature Comments Components Source Medication Medication Date Date Medication? Clinician (SIG) Name Name aspirin 81 2020- No 81mg QD Take [address] [facility] [address] [facility] EC 05-14- tablet (81 [facility] - tablet 00:00: 23:59 mg total) Medic al 00 :00 by mouth Center daily for 30 days. folic acid No 5mg QD Take [address] [address] (FOLVITE) 1 05-14-03 tablets (5 L ukes - MG tablet 00:00: 23:59 mg total) Me dical 00 :00 by mouth Center daily for 30 days. polyethylen 2020- No 17g QD Take [address] e glycol -04 15-03 by mouth [facility] - (GLYCOLAX) 00:00: 23:59 daily for M vicki 17 gram 00 :00 30 days. Center packet tiZANidine Yes 2mg Take [address] (ZANAFLEX) -02 by mouth [facility] - 2 MG tablet 19:04: every 6 Med ical 52 (six) Center hours as needed. metaxalone Yes 800mg Take [address] (SKELAXIN) 4-02 mg by [facility] - 800 MG 19:04: mouth 3 Medical tablet 52 (three) Center times daily as needed for Muscle spasms. ibuprofen Yes 800mg Take [address] (ADVIL,MOTR 4-02 mg by [facility] - IN) 800 MG 19:04: mouth Medica l tablet 52 every 8 Center (eight) hours as needed for Pain. omeprazole Yes 40mg QD Take [address] (PriLOSEC) -02 by mouth [facility] - 40 MG 19:04: daily. Medical capsule 52 [place] atorvastati 2020- No 10mg QD Take [address] [facility] (LIPITOR) -03 17- by mouth [facility] - 10 MG 10:29: 00:00 daily. Medical tablet 12 :00 [place] atorvastati Yes 10mg QD Take [address] [facility] (LIPITOR) -02 tablet (10 Guerda kes - 10 MG 00:00: mg total) Medical tablet 00 by mouth Center daily. senna 2020- No 8.6mg QD Take [address] (SENOKOT) - 05-02 tablet [facility] - 8.6 mg 00:00: 23:59 (8.6 mg Medical tablet 00 :00 total) by Center mouth nightly for 30 days. Vital Signs Vital Name Observation Time Observation Value Comments Source Systolic blood 2020-05-13 15:30:00 96 mm[Hg] [facility] Diastolic blood 2020-05-13 15:30:00 64 mm[Hg] [facility] Heart rate 2020-05-13 15:30:00 89 /min [facility] Body temperature 2020-05-13 15:30:00 36.44 [facility] Respiratory rate 2020-05-13 15:30:00 18 /min [facility] Oxygen saturation in 2020-05-13 15:30:00 96 /min [facility] - Arterial blood by Medical Ce nter Pulse oximetry Body height 2020-05-06 00:21:00 157.5 cm [facility] Body weight 2020-05-06 00:21:00 90.719 kg [facility] BMI 2020-05-06 00:21:00 36.58 kg/m2 [facility] Procedures Procedure Date / Time Performed Performing Clinician [facility] e SARS-COV2/RT-PCR ([facility] & 2020-05-13 09:26:00 Brenna, [facility] - REF LABS) [facility] CBC W/PLT COUNT & AUTO 2020-05-13 04:52:00 Marlene, David Hebert [facility] COMPREHENSIVE METABOLIC 2020-05-13 04:52:00 Marlene, David Hebert [facility] CBC W/PLT COUNT & AUTO 2020-05-12 05:44:00 Marlene, David Hebert [facility] METABOLIC 2020-05-12 05:44:00 Marlene, David Hebert [facility] CBC W/PLT COUNT & AUTO 2020-05-11 05:06:00 MarleneDavid [facility] METABOLIC 2020-05-11 05:06:00 Marlene, David Hebert [facility] HEPATITIS C PCR, 2020-05-10 16:21:00 Marlene, David Hebert [facility] HEPATITIS C GENOTYPE 2020-05-10 16:21:00 Marlene, David Hebert [facility] HEPATITIS PANEL, ACUTE 2020-05-10 05:46:00 Marlene, David Hebert [facility] CBC W/PLT COUNT & AUTO 2020-05-10 05:46:00 Marlene, David Hebert [facility] 2020-05-10 05:46:00 Marlene, David Hebert [facility] US ABDOMEN LIMITED 2020-05-09 14:42:00 Marlene, David Hebert [facility] CBC W/PLT COUNT & AUTO 2020-05-09 12:01:00 Marlene, David Hebert [facility] 2020-05-09 12:01:00 Marlene, David Hebert [facility] (CELLAVISION MANUAL DIFF) 2020-05-09 12:01:00 Marlene, David [address] [facility] CT BRAIN WITHOUT IV 2020-05-09 00:01:[address] [facility] REPORT OF PROCEDURE - 2020-05-08 08:50:18 Maude Varghese [facility] ENDOSCOPY [facility] TISSUE EXAM 2020-05-08 08:18:00 Maude Varghese [facility] UPPER ENDOSCOPY,BIOPSY 2020-05-08 08:00:[address] [facility] CBC W/PLT COUNT & AUTO 2020-05-08 04:46:00 SOLOMON Ceja [facility] 2020-05-08 04:46:00 Brenna [facility] (CELLAVISION MANUAL DIFF) 2020-05-08 04:46:00 ANGUS Ceja [facility] CTA BRAIN 2020-05-07 18:15:00 Jack Cintron [facility] URINALYSIS W/ REFLEX 2020-05-07 17:53:[address] [facility] URINE CULTURE [facility] ECHO W CONTRAST & DOPPLER 2020-05-07 15:40:57 Jack Cintron [facility] XR CHEST 1 VIEW 2020-05-07 15:15:00 Jack Cintron [facility] BLOOD CULTURE 2020-05-07 13:38:00 Jack Cintron [facility] CBC W/PLT COUNT & AUTO 2020-05-07 04:34:00 Brenna [facility] S t [facility] DIFFERENTIAL [facility] COMPREHENSIVE METABOLIC 2020-05-07 04:34:00 Brenna [facility] (CELLAVISION MANUAL DIFF) 2020-05-07 04:34:00 Brenna [facility] ECG 12-LEAD 2020-05-06 15:16:23 Jack Cintron [facility] SARS-COV2/RT-PCR ([facility] & 2020-05-06 13:41:00 [facility] IRON, TIBC, % SAT. 2020-05-06 06:51:00 Colby Verduzco [facility] (WITHOUT FERRITIN) [facility] W/[facility]T [facility] & AUTO 2020-05-06 06:51:00 Brenna [facility] S t [facility] (CELLAVISION MANUAL DIFF) 2020-05-06 06:51:00 Brenna [facility] COMPREHENSIVE METABOLIC 2020-05-06 06:51:00 Brenna [facility] PROTHROMBIN TIME/INR 2020-05-06 06:51:00 [facility] LIPID PANEL 2020-05-06 06:51:00 [facility] HEMOGLOBIN A1C 2020-05-06 06:51:00 [facility] VITAMIN B12 AND FOLATE 2020-05-06 06:51:00 [facility] S [facility] RPR 2020-05-06 06:51:00 [facility] C-REACTIVE PROTEIN 2020-05-06 06:51:00 Brenna [facility] TSH/FREE T4 IF INDICATED 2020-05-06 06:51:00 Brenna [facility] PERIPHERAL BLOOD SMEAR - 2020-05-06 06:51:00 Brenna [facility] - PATHOLOGIST REVIEW [facility] r FERRITIN 2020-05-06 06:51:00 Colby Verduzco [facility] Plan of Care Planned Activity Planned Date Details Comments Source Future Scheduled 2020-10-[address] [facility] - Test 00:00:00 (Season Ended) [code = Medic al Center INFLUENZA VACCINE (Season Ended)] Future Scheduled 2020-02-[address] [facility] - Test 00:00:00 (12+) [code = Medical Center DEPRESSION SCREENING (12+)] Future Scheduled 2020-02-12 Medicare IPPE (WELCOME [facility] - Test 00:00:00 TO MEDICARE) [code = [facility] Medicare IPPE (WELCOME TO MEDICARE)] Future Scheduled 2017 PNEUMOCOCCAL 65+ [facility] - Test 00:00:00 (1 of 1 - Medical Center [id number] PCV13) [code = PNEUMOCOCCAL 65+ YRS (1 of 1 - [id number] PCV13)] Future Scheduled 2002 SHINGLES VACCINES ([address] [facility] - Test 00:00:00 of 2) [code = SHINGLES Medic al Center VACCINES (1 of 2)] Future Scheduled 1971-09-23 DTAP/TDAP/TD VACCINES [facility] - Test 00:00:00 (1 - Tdap) [code = Medical C enter DTAP/TDAP/TD VACCINES (1 - Tdap)] Future Scheduled 1964 COVID-19 VACCINE (1) [facility] - Test 00:00:00 [code = COVID-[address] VACCINE (1)] Future Scheduled [address] [facility] - Test 00:00:00 malignant neoplasm of Medica l Center breast (procedure) [code = 068658462] Future Scheduled [address] [facility] - Test 00:00:00 malignant neoplasm of Medica l Center colon (procedure) [code = 013651425] Results Test Description Test Time Test Comments Results Result Comments Source Hepatitis C genotype 2020-05-16 09:09:00 Test Item Value Reference Range Interpretation Comme nts HCV Genotype, 1a The method us ed in this test is RT-PCR and LiPA (test code = reversehyb ridization (Line Probe) of the 5' 7676931) UTR and corereg ion of the HCV genome. The analytical perf ormance characteristics of thisassay have been determined by [facility]. The modifications h ave not beencleared or approved by the FDA. Thi s assay has beenvalidated pursuant to the CLIA regulations and isused for clinical pu rposes. For additional information, pl ease refer tohttp://educat ion.Narvii /faq/HCVGenotyp ing(This link id being provided for information al/educational purposes only.) KAYLA (test code = Performing Lab KAYLA) *QDID [facility] [address] [place] [address] Joseph N[facility] (Asymptomatic ONLY)2020-05-13 17:07:00 Test Item Value Reference Range Interpretation Comments SARS-COV2/RT-PCR Negative Not Detected, (test code = Negative, See 79605-9) external report for linked test SARS-COV-2 [facility] PERFORMING LAB (test code = 74413-0) KAYLA (test code = Negative result for this KAYLA) test determines that SARS-CoV-2 RNA was not present in the specimen above the Limit of Detection (LOD). However, Negative results do not preclude SARS-CoV-2 infection and should not be used as the sole basis for treatment or patient management decisions. Negative results must be combined with clinical observations, patient history, and epidemiological information. A false negative result may occur if a specimen is improperly collected, transported or handled. A false negative result should be considered if patient's recent exposures or clinical presentation indicate that COVID-19 (SARS-CoV-2) is likely and diagnostic tests for other causes of illness are negative. Re-testing should be considered in cases of suspected false negatives. The limit of detection for this assay is 800 copies/mL. This SARS CoV-2 test is a real-time RT-PCR test intended for the qualitative detection of nucleic acid from SARS-CoV-2 in a nasopharyngeal swab specimen collected from individuals suspected of COVID-19 by their healthcare provider. This test has not been Food and Drug Administration (FDA) cleared or approved. This is a modified version of an approved Emergency Use Authorization (EUA) and is in the process of review by the FDA. Once authorized by the FDA, the issued EUA will be effective until the declaration that circumstances exist justifying the authorization of the emergency use of in vitro diagnostic tests for detection and/or diagnosis of COVID-19 is terminated under Section 564(b)(2) of the Act or the EUA is revoked under Section 564(g) of the Act. Fact Sheet for Healthcare Providers:https://www.[employer]/sites/default/f paxton/product/documents/F act_Sheet_HC_Providers_L unc_KSUC-PiR-8.pdf Fact Sheet for Healthcare Patients:https://www.[employer]/sites/default/fi les/product/documents/Fa ct_Sheet_Patients_Lyra_S ARS-CoV-2.pdf Performing Laboratory:[facility], [place] [address] [place], [place] [address]ARS-COV2/RT-PCR ([facility] & REF LABS)2020-05-13 17:07:00 Test Item Value Reference Range Interpretation Comments SARS-COV2/RT-PCR (test Negative Not Detected, Negative, code = 3800421) See external report for linked test SARS-COV-[address] [facility] JOSUE (test code = 7271512) Negative result for this test determines that SARS-CoV-2 RNA was not present in the specimen above the Limit of Detection (LOD). However, Negative results do not preclude SARS-CoV-2 infection and should not be used as the sole basis for treatment or patient management decisions. Negative results mustbe combined with clinical observations, patient history, and epidemiological information. A false negative result may occur if a specimen is improperly collected, transported or handled. A false negative result should be considered if patient's recent exposures or clinical presentation indicate that COVID-19 (SARS-CoV-2) is likely and diagnostic tests for other causes of illness are negative. Re-testing should be considered in cases of suspected false negatives.The limit of detection for this assay is 800 copies/mL.This SARS CoV-2 test is a real-time RT-PCR test intended for the qualitative detection of nucleic acid from SARS-CoV-2 in a nasopharyngeal swab specimen collected from individuals susp ected of COVID-19 by their healthcare provider.This test has not been Food and Drug Administration (FDA) cleared or approved. This is a modified version of an approved Emergency Use Authorization (EUA) and is in the process of review by the FDA. Once authorized by the FDA, the issued EUA will be effective until the declaration that circumstances exist justifying the authorization of the emergency use of in vitro diagnostic tests for detection and/or diagnosis of COVID-19 is terminated under Section 564(b)(2) of the Act or the EUA is revoked under Section 564(g) of the Act.Fact Sheet for Healthcare Providers:https://www.[employer]/sites/default/files/product/documents/Fact_Shee y_UO_Jontowlqa_Rquw_ZMDE-XiI-5.pdfFact Sheet for Healthcare Patients:https://www.[employer]/sites/default/files/product/ documents/Naww_Hotyw_Gqpbmjor_Zxlq_GBDI-ZlN-8.pdfPerforming Laboratory:[facility], [place] [address]Yaejgiglxuesm metabolic [id number] 05:41:00 Test Item Value Reference Range Interpretation Comments Protein, Total (test 6.1 See_Comment [Autom ated code = 2885-2) message] The system which generated this result transmit herbie reference range : 6.0 - 8.3 gm/dL . The reference range was not u sed to interpret th is result as normal/abnormal . Albumin (test code = 3.1 g/dL 3.5-5 L 86586-9) Alkaline Phosphatase 98 U/L 40-150 (test code = 6768-6) Total Bilirubin (test 0.4 mg/dL 0.2-1.2 code = 1975-2) Sodium (test code = 138 meq/L 566-793 8822-2) Potassium (test code 3.7 meq/L 3.5-5.1 = 2823-3) Chloride (test code = 102 meq/L 98-107 5-0) CO2 (test code = 27 meq/L 22-29 2027-9) BUN (test code = 10 mg/dL 7-21 3094-0) Creatinine (test code 0.71 mg/dL 0.57-1.25 = 2160-0) Glucose (test code = 113 mg/dL 70-105 H 2345-7) Calcium (test code = 8.8 mg/dL 8.4-10.2 98487-3) AST (test code = 36 U/L 5-34 H 1920-8) ALT (test code = 29 U/L 6-55 1742-6) EGFR (test code = 82 mL/min/1.73 [place] [address]-2) NOT ACCURATE CREATININE CLEARANCE IN PREDICTING GLOMERULAR FILTRATION RATE . ESTIMATED GFR I S NOT APPLICABLE FOR DIALYSIS PATIEN TS. KAYLA (test code = KAYLA) Community Center Coordinator ID - EDASI Lab Interpretation Abnormal (test code = 12222-7) [facility] with platelet count + automated [id number] 05:41:00 Test Item Value Reference Range Interpretation Comments WBC (test code = 6690-2) 15.2 See_Comment H [A utomated message] The system [employer] generated this result transmitted ref erence range: 3.5 - 10 .5 K/L. The refe rence range was not u sed to interpret this result as normal/abnor mal. RBC (test code = 789-8) 3.68 See_Comment L [Au tomated message] The system [employer] generated this result transmitted ref erence range: 3.93 - 5 .22 M/L. The refe rence range was not u sed to interpret this result as normal/abnor mal. MCHC (test code = 786-4) 33.0 See_Comment [A utomated message] The system [employer] generated this result transmitted ref erence range: 32.2 - 3 5.5 GM/DL. The refe rence range was not u sed to interpret this result as normal/abnor mal. Hematocrit (test code = 34.9 % 34.1-44.9 4544-3) MCV (test code = 787-2) 94.8 fL 79.4-94.8 MCH (test code = 785-6) 31.3 pg 25.6-32.2 RDW (test code = 788-0) 14.1 % 11.7-14.4 Platelets (test code = 266 See_Comment [Aut omated message] 777-3) The system [employer] generated this result transmitted ref erence range: 150 - 45 0 K/CU MM. The referen ce range was not u sed to interpret this result as normal/abnor mal. MPV (test code = 11.9 fL 9.4-12.3 55074-4) nRBC (test code = 413) 0 See_Comment [Aut omated message] The system [employer] generated this result transmitted ref erence range: 0 - 0 /1 00 WBC. The refere nce range was not u sed to interpret this result as normal/abnor mal. % Neutros (test code = 59 % 429) % Lymphs (test code = 31 % 430) % Monos (test code = 8 % 431) % Eos (test code = 432) 1 % % Baso (test code = 437) 0 % # Neutros (test code = 9.06 See_Comment H [Aut omated message] 670) The system [employer] generated this result transmitted ref erence range: 1.56 - 6 .13 K/L. The refe rence range was not u sed to interpret this result as normal/abnor mal. # Lymphs (test code = 4.78 See_Comment H [Auto mated message] 414) The system [employer] generated this result transmitted ref erence range: 1.18 - 3 .74 K/L. The refe rence range was not u sed to interpret this result as normal/abnor mal. # Monos (test code = 1.19 See_Comment H [Autom ated message] 415) The system [employer] generated this result transmitted ref erence range: 0.24 - 0 .36 K/L. The refe rence range was not u sed to interpret this result as normal/abnor mal. # Eos (test code = 416) 0.12 See_Comment [Au tomated message] The system [employer] generated this result transmitted ref erence range: 0.04 - 0 .36 K/L. The refe rence range was not u sed to interpret this result as normal/abnor mal. # Baso (test code = 417) 0.03 See_Comment [A utomated message] The system [employer] generated this result transmitted ref erence range: 0.01 - 0 .08 K/L. The refe rence range was not u sed to interpret this result as normal/abnor mal. Immature 0 % 0-1 Granulocytes-Relative (test code = 2801) Lab Interpretation (test Abnormal code = 42218-9) [facility] W/PLT COUNT & AUTO [id number] 05:41:00 Test Item Value Reference Range Interpretation Comments WHITE BLOOD CELL COUNT (BEAKER) 15.2 K/ L 3.5-10.5 H (test code = 775) RED BLOOD CELL COUNT (BEAKER) 3.68 M/ L 3.93-5.22 L (test code = 761) HEMOGLOBIN (BEAKER) (test code = 11.5 GM/DL 11.2-15.7 410) HEMATOCRIT (BEAKER) (test code = 34.9 % 34.1-44.9 411) MEAN CORPUSCULAR VOLUME (BEAKER) 94.8 fL 79.4-94.8 (test code = 753) MEAN CORPUSCULAR HEMOGLOBIN 31.3 pg 25.6-32.2 (BEAKER) (test code = 751) MEAN CORPUSCULAR HEMOGLOBIN CONC 33.0 GM/DL 32.2-35.5 (BEAKER) (test code = 752) RED CELL DISTRIBUTION WIDTH 14.1 % 11.7-14.4 (BEAKER) (test code = 412) PLATELET COUNT (BEAKER) (test 266 K/CU MM 150-450 code = 756) MEAN PLATELET VOLUME (BEAKER) 11.9 fL 9.4-12.3 (test code = 754) NUCLEATED RED BLOOD CELLS 0 /100 WBC 0-0 (BEAKER) (test code = 413) NEUTROPHILS RELATIVE PERCENT 59 % (BEAKER) (test code = 429) LYMPHOCYTES RELATIVE PERCENT 31 % (BEAKER) (test code = 430) MONOCYTES RELATIVE PERCENT 8 % (BEAKER) (test code = 431) EOSINOPHILS RELATIVE PERCENT 1 % (BEAKER) (test code = 432) BASOPHILS RELATIVE PERCENT 0 % (BEAKER) (test code = 437) NEUTROPHILS ABSOLUTE COUNT 9.06 K/ L 1.56-6.13 H (BEAKER) (test code = 670) LYMPHOCYTES ABSOLUTE COUNT 4.78 K/ L 1.18-3.74 H (BEAKER) (test code = 414) MONOCYTES ABSOLUTE COUNT (BEAKER) 1.19 K/ L 0.24-0.36 H (test code = 415) EOSINOPHILS ABSOLUTE COUNT 0.12 K/ L 0.04-0.36 (BEAKER) (test code = 416) BASOPHILS ABSOLUTE COUNT (BEAKER) 0.03 K/ L 0.01-0.08 (test code = 417) IMMATURE GRANULOCYTES-RELATIVE 0 % 0-1 PERCENT (BEAKER) (test code = 2801) COMPREHENSIVE METABOLIC [id number] 05:41:00 Test Item Value Reference Range Interpretation Comments TOTAL PROTEIN 6.1 gm/dL 6.0-8.3 (BEAKER) (test code = 770) ALBUMIN (BEAKER) 3.1 g/dL 3.5-5.0 L (test code = 1145) ALKALINE PHOSPHATASE 98 U/L 40-150 (BEAKER) (test code = 346) BILIRUBIN TOTAL 0.4 mg/dL 0.2-1.2 (BEAKER) (test code = 377) SODIUM (BEAKER) (test 138 meq/L 136-145 code = 381) POTASSIUM (BEAKER) 3.7 meq/L 3.5-5.1 (test code = 379) CHLORIDE (BEAKER) 102 meq/L 98-107 (test code = 382) CO2 (BEAKER) (test 27 meq/L 22-29 code = 355) BLOOD UREA NITROGEN 10 mg/dL 7-21 (BEAKER) (test code = 354) CREATININE (BEAKER) 0.71 mg/dL 0.57-1.25 (test code = 358) GLUCOSE RANDOM 113 mg/dL 70-105 H (BEAKER) (test code = 652) CALCIUM (BEAKER) 8.8 mg/dL 8.4-10.2 (test code = 697) AST (SGOT) (BEAKER) 36 U/L 5-34 H (test code = 353) ALT (SGPT) (BEAKER) 29 U/L 6-55 (test code = 347) EGFR (BEAKER) (test 82 mL/min/1.73 ESTIMA HERBIE GFR IS code = 1092) sq m NOT ACCURATE CREATININE CLEARANCE IN PREDICTING GLOMERULAR FILTRATION RATE . ESTIMATED GFR I S NOT APPLICABLE FOR DIALYSIS PATIEN TS. Community Center Coordinator ID - EDASIBlood Culture - Routine (Right Venipuncture)2020-05-12 16:02:00 Test Item Value Reference Range Interpretation Comments Result (test code = No growth in 5 days 6463-4) [facility] [id number] 16:02:00 Test Item Value Reference Range Interpretation Comments CULTURE (BEAKER) (test No growth in 5 days code = 1095) COMPREHENSIVE METABOLIC [id number] 08:07:00 Test Item Value Reference Range Interpretation Comments TOTAL PROTEIN 6.7 gm/dL 6.0-8.3 (BEAKER) (test code = 770) ALBUMIN (BEAKER) 3.4 g/dL 3.5-5.0 L (test code = 1145) ALKALINE PHOSPHATASE 109 U/L 40-150 (BEAKER) (test code = 346) BILIRUBIN TOTAL 0.5 mg/dL 0.2-1.2 (BEAKER) (test code = 377) SODIUM (BEAKER) (test 138 meq/L 136-145 code = 381) POTASSIUM (BEAKER) 4.0 meq/L 3.5-5.1 (test code = 379) CHLORIDE (BEAKER) 103 meq/L 98-107 (test code = 382) CO2 (BEAKER) (test 24 meq/L 22-29 code = 355) BLOOD UREA NITROGEN 11 mg/dL 7-21 (BEAKER) (test code = 354) CREATININE (BEAKER) 0.79 mg/dL 0.57-1.25 (test code = 358) GLUCOSE RANDOM 94 mg/dL 70-105 (BEAKER) (test code = 652) CALCIUM (BEAKER) 9.2 mg/dL 8.4-10.2 (test code = 697) AST (SGOT) (BEAKER) 42 U/L 5-34 H (test code = 353) ALT (SGPT) (BEAKER) 30 U/L 6-55 (test code = 347) EGFR (BEAKER) (test 73 mL/min/1.73 ESTIMA HERBIE GFR IS code = 1092) sq m NOT ACCURATE CREATININE CLEARANCE IN PREDICTING GLOMERULAR FILTRATION RATE . ESTIMATED GFR I S NOT APPLICABLE FOR DIALYSIS PATIEN TS. [facility] ID - PIAYA LCBC W/PLT COUNT & AUTO [id number] 06:56:00 Test Item Value Reference Range Interpretation Comments WHITE BLOOD CELL COUNT (BEAKER) 13.6 K/ L 3.5-10.5 H (test code = 775) RED BLOOD CELL COUNT (BEAKER) 4.34 M/ L 3.93-5.22 (test code = 761) HEMOGLOBIN (BEAKER) (test code = 13.6 GM/DL 11.2-15.7 410) HEMATOCRIT (BEAKER) (test code = 42.4 % 34.1-44.9 411) MEAN CORPUSCULAR VOLUME (BEAKER) 97.7 fL 79.4-94.8 H (test code = 753) MEAN CORPUSCULAR HEMOGLOBIN 31.3 pg 25.6-32.2 (BEAKER) (test code = 751) MEAN CORPUSCULAR HEMOGLOBIN CONC 32.1 GM/DL 32.2-35.5 L (BEAKER) (test code = 752) RED CELL DISTRIBUTION WIDTH 14.4 % 11.7-14.4 (BEAKER) (test code = 412) PLATELET COUNT (BEAKER) (test 242 K/CU MM 150-450 code = 756) MEAN PLATELET VOLUME (BEAKER) 12.0 fL 9.4-12.3 (test code = 754) NUCLEATED RED BLOOD CELLS 0 /100 WBC 0-0 (BEAKER) (test code = 413) NEUTROPHILS RELATIVE PERCENT 56 % (BEAKER) (test code = 429) LYMPHOCYTES RELATIVE PERCENT 34 % (BEAKER) (test code = 430) MONOCYTES RELATIVE PERCENT 8 % (BEAKER) (test code = 431) EOSINOPHILS RELATIVE PERCENT 1 % (BEAKER) (test code = 432) BASOPHILS RELATIVE PERCENT 0 % (BEAKER) (test code = 437) NEUTROPHILS ABSOLUTE COUNT 7.66 K/ L 1.56-6.13 H (BEAKER) (test code = 670) LYMPHOCYTES ABSOLUTE COUNT 4.66 K/ L 1.18-3.74 H (BEAKER) (test code = 414) MONOCYTES ABSOLUTE COUNT (BEAKER) 1.02 K/ L 0.24-0.36 H (test code = 415) EOSINOPHILS ABSOLUTE COUNT 0.16 K/ L 0.04-0.36 (BEAKER) (test code = 416) BASOPHILS ABSOLUTE COUNT (BEAKER) 0.04 K/ L 0.01-0.08 (test code = 417) IMMATURE GRANULOCYTES-RELATIVE 1 % 0-1 PERCENT (BEAKER) (test code = 2801) Hepatitis C PCR, [id number] 21:55:00 Test Item Value Reference Range Interpretation Comments HCV PCR, Quantitative [id number] See_Comment H [Auto mated (test code = 66859-9) messag e] The system which generated this result transmitted reference range : <15 IU/mL. The reference range was not used to interpret this result as normal/abnormal . KAYLA (test code = KAYLA) This test uses a Real-Time Polymerase Chain Reaction (RT-PCR) methodology and was performed using MONICA Ampliprep/MONICA TaqMan HCV test kit version 2.0 ([employer]). Reportable range for this assay is 15 - 100,000,000 IU per mL (1.18 - 8.00 Log IU/mL). Lab Interpretation Abnormal (test code = 30562-6) [facility], [id number] 21:55:00 Test Item Value Reference Range Interpretation Comments HCV NUMERIC RESULT (BEAKER) [id number] IU/mL <15 H (test code = 2700) This test uses a Real-Time Polymerase Chain Reaction (RT-PCR) methodology and was performed using MONICA Ampliprep/MONICA TaqMan HCV test kit version 2.0 ([employer]).Reportable range for this assay is 15 - 100,000,000 IU per mL (1.18 - 8.00 Log IU/mL).CBC W/PLT COUNT & AUTO [id number] 06:02:00 Test Item Value Reference Range Interpretation Comments WHITE BLOOD CELL COUNT (BEAKER) 14.3 K/ L 3.5-10.5 H (test code = 775) RED BLOOD CELL COUNT (BEAKER) 3.53 M/ L 3.93-5.22 L (test code = 761) HEMOGLOBIN (BEAKER) (test code = 11.0 GM/DL 11.2-15.7 L 410) HEMATOCRIT (BEAKER) (test code = 34.9 % 34.1-44.9 411) MEAN CORPUSCULAR VOLUME (BEAKER) 98.9 fL 79.4-94.8 H (test code = 753) MEAN CORPUSCULAR HEMOGLOBIN 31.2 pg 25.6-32.2 (BEAKER) (test code = 751) MEAN CORPUSCULAR HEMOGLOBIN CONC 31.5 GM/DL 32.2-35.5 L (BEAKER) (test code = 752) RED CELL DISTRIBUTION WIDTH 14.3 % 11.7-14.4 (BEAKER) (test code = 412) PLATELET COUNT (BEAKER) (test 222 K/CU MM 150-450 code = 756) MEAN PLATELET VOLUME (BEAKER) 12.1 fL 9.4-12.3 (test code = 754) NUCLEATED RED BLOOD CELLS 0 /100 WBC 0-0 (BEAKER) (test code = 413) NEUTROPHILS RELATIVE PERCENT 59 % (BEAKER) (test code = 429) LYMPHOCYTES RELATIVE PERCENT 30 % (BEAKER) (test code = 430) MONOCYTES RELATIVE PERCENT 10 % (BEAKER) (test code = 431) EOSINOPHILS RELATIVE PERCENT 1 % (BEAKER) (test code = 432) BASOPHILS RELATIVE PERCENT 0 % (BEAKER) (test code = 437) NEUTROPHILS ABSOLUTE COUNT 8.42 K/ L 1.56-6.13 H (BEAKER) (test code = 670) LYMPHOCYTES ABSOLUTE COUNT 4.29 K/ L 1.18-3.74 H (BEAKER) (test code = 414) MONOCYTES ABSOLUTE COUNT (BEAKER) 1.42 K/ L 0.24-0.36 H (test code = 415) EOSINOPHILS ABSOLUTE COUNT 0.12 K/ L 0.04-0.36 (BEAKER) (test code = 416) BASOPHILS ABSOLUTE COUNT (BEAKER) 0.03 K/ L 0.01-0.08 (test code = 417) IMMATURE GRANULOCYTES-RELATIVE 0 % 0-1 PERCENT (BEAKER) (test code = 2801) COMPREHENSIVE METABOLIC [id number] 06:00:00 Test Item Value Reference Range Interpretation Comments TOTAL PROTEIN 5.8 gm/dL 6.0-8.3 L (BEAKER) (test code = 770) ALBUMIN (BEAKER) 3.0 g/dL 3.5-5.0 L (test code = 1145) ALKALINE PHOSPHATASE 97 U/L 40-150 (BEAKER) (test code = 346) BILIRUBIN TOTAL 0.7 mg/dL 0.2-1.2 (BEAKER) (test code = 377) SODIUM (BEAKER) (test 136 meq/L 136-145 code = 381) POTASSIUM (BEAKER) 3.5 meq/L 3.5-5.1 (test code = 379) CHLORIDE (BEAKER) 102 meq/L 98-107 (test code = 382) CO2 (BEAKER) (test 26 meq/L 22-29 code = 355) BLOOD UREA NITROGEN 10 mg/dL 7-21 (BEAKER) (test code = 354) CREATININE (BEAKER) 0.78 mg/dL 0.57-1.25 (test code = 358) GLUCOSE RANDOM 109 mg/dL 70-105 H (BEAKER) (test code = 652) CALCIUM (BEAKER) 8.5 mg/dL 8.4-10.2 (test code = 697) AST (SGOT) (BEAKER) 36 U/L 5-34 H (test code = 353) ALT (SGPT) (BEAKER) 28 U/L 6-55 (test code = 347) EGFR (BEAKER) (test 74 mL/min/1.73 ESTIMA HERBIE GFR IS code = 1092) sq m NOT ACCURATE CREATININE CLEARANCE IN PREDICTING GLOMERULAR FILTRATION RATE . ESTIMATED GFR I S NOT APPLICABLE FOR DIALYSIS PATIEN TS. [facility] Coord[facility] ID - MAYA BHepatitis panel, [id number] 07:46:00 Test Item Value Reference Range Interpretation Comments Hep A IgM (test code = Nonreactive Nonreactive 84973-5) Hep B C IgM (test code = Nonreactive Nonreactive 58736-5) Hepatitis C Ab (test Reactive Nonreactive A code = 29040-1) HBsAg Screen (test code Nonreactive Nonreactive = 5195-3) KAYLA (test code = KAYLA) [facility] ID - VALENCIA M Lab Interpretation (test Abnormal code = 51401-1) [facility] [id number] 07:46:00 Test Item Value Reference Range Interpretation Comments HEPATITIS A IGM ANTIBODY (BEAKER) Nonreactive Nonreactive (test code = 498) HEPATITIS B CORE IGM ANTIBODY Nonreactive Nonreactive (BEAKER) (test code = 645) HEPATITIS C ANTIBODY (BEAKER) Reactive Nonreactive A (test code = 367) HEPATITIS B SURFACE ANTIGEN (2) Nonreactive Nonreactive (BEAKER) (test code = 2585) [facility] ID - VALENCIA MCOMPREHENSIVE METABOLIC [id number] 07:17:00 Test Item Value Reference Range Interpretation Comments TOTAL PROTEIN 6.1 gm/dL 6.0-8.3 (BEAKER) (test code = 770) ALBUMIN (BEAKER) 3.2 g/dL 3.5-5.0 L (test code = 1145) ALKALINE PHOSPHATASE 100 U/L 40-150 (BEAKER) (test code = 346) BILIRUBIN TOTAL 0.7 mg/dL 0.2-1.2 (BEAKER) (test code = 377) SODIUM (BEAKER) (test 137 meq/L 136-145 code = 381) POTASSIUM (BEAKER) 3.6 meq/L 3.5-5.1 (test code = 379) CHLORIDE (BEAKER) 101 meq/L 98-107 (test code = 382) CO2 (BEAKER) (test 27 meq/L 22-29 code = 355) BLOOD UREA NITROGEN 8 mg/dL 7-21 (BEAKER) (test code = 354) CREATININE (BEAKER) 0.70 mg/dL 0.57-1.25 (test code = 358) GLUCOSE RANDOM 88 mg/dL 70-105 (BEAKER) (test code = 652) CALCIUM (BEAKER) 8.6 mg/dL 8.4-10.2 (test code = 697) AST (SGOT) (BEAKER) 45 U/L 5-34 H (test code = 353) ALT (SGPT) (BEAKER) 32 U/L 6-55 (test code = 347) EGFR (BEAKER) (test 83 mL/min/1.73 ESTIMA HERBIE GFR IS code = 1092) sq m NOT ACCURATE CREATININE CLEARANCE IN PREDICTING GLOMERULAR FILTRATION RATE . ESTIMATED GFR I S NOT APPLICABLE FOR DIALYSIS PATIEN TS. [facility] Coord[facility] ID - RIK LCBC W/PLT COUNT & AUTO [id number] 06:57:00 Test Item Value Reference Range Interpretation Comments WHITE BLOOD CELL COUNT (BEAKER) 14.6 K/ L 3.5-10.5 H (test code = 775) RED BLOOD CELL COUNT (BEAKER) 3.72 M/ L 3.93-5.22 L (test code = 761) HEMOGLOBIN (BEAKER) (test code = 11.7 GM/DL 11.2-15.7 410) HEMATOCRIT (BEAKER) (test code = 37.5 % 34.1-44.9 411) MEAN CORPUSCULAR VOLUME (BEAKER) 100.8 fL 79.4-94.8 H (test code = 753) MEAN CORPUSCULAR HEMOGLOBIN 31.5 pg 25.6-32.2 (BEAKER) (test code = 751) MEAN CORPUSCULAR HEMOGLOBIN CONC 31.2 GM/DL 32.2-35.5 L (BEAKER) (test code = 752) RED CELL DISTRIBUTION WIDTH 14.1 % 11.7-14.4 (BEAKER) (test code = 412) PLATELET COUNT (BEAKER) (test 169 K/CU MM 150-450 code = 756) MEAN PLATELET VOLUME (BEAKER) 12.6 fL 9.4-12.3 H (test code = 754) NUCLEATED RED BLOOD CELLS 0 /100 WBC 0-0 (BEAKER) (test code = 413) NEUTROPHILS RELATIVE PERCENT 71 % (BEAKER) (test code = 429) LYMPHOCYTES RELATIVE PERCENT 19 % (BEAKER) (test code = 430) MONOCYTES RELATIVE PERCENT 9 % (BEAKER) (test code = 431) EOSINOPHILS RELATIVE PERCENT 1 % (BEAKER) (test code = 432) BASOPHILS RELATIVE PERCENT 0 % (BEAKER) (test code = 437) NEUTROPHILS ABSOLUTE COUNT 10.30 K/ L 1.56-6.13 H (BEAKER) (test code = 670) LYMPHOCYTES ABSOLUTE COUNT 2.81 K/ L 1.18-3.74 (BEAKER) (test code = 414) MONOCYTES ABSOLUTE COUNT (BEAKER) 1.28 K/ L 0.24-0.36 H (test code = 415) EOSINOPHILS ABSOLUTE COUNT 0.07 K/ L 0.04-0.36 (BEAKER) (test code = 416) BASOPHILS ABSOLUTE COUNT (BEAKER) 0.03 K/ L 0.01-0.08 (test code = 417) IMMATURE GRANULOCYTES-RELATIVE 0 % 0-1 PERCENT (BEAKER) (test code = 2801) U/S, ABDOMINAL, [id number] 22:12:00Abdomen limited area? Add comment if clarification is needed.->Right upper quadrantReason for exam :->transaminitis [facility] : 1950 Sex: FFINAL REPORT TECHNIQUE: Grayscale ultrasound of the right abdomen. INDICATION: Transaminitis. COMPARISON: None. FINDINGS: MIDLINE VASCULATURE: The visualized inferior vena cava is patent. Portal vein is patent and measures 0.8 cm in diameter. The maximum visualized aortic diameter is 2.5 cm. LIVER: The liver is normal in size and echogenicity with smooth contour. Liver measures 12.9 cm in length No focal lesions. BILIARY:Gallbladder: Prior cholecystectomyCommon bile duct measures 0.9 cm, mildly dilated. No intrahepatic biliary ductal dilatation. PANCREAS: Incompletely visualized due to overlying bowel gas. PERITONEUM: No free fluid. RIGHT KIDNEY: The right kidney is normal in size and measures 11.2 cm in length. No hydronephrosis. No sonographically evident solid mass lesion. IMPRESSION:Mild dilation of the common bile duct measuring up to 0.9 cm which may represent reservoir effect from prior cholecystectomy. Correlate with liver function tests.. Signed: Karolyn Garcia MDReport Verified Date/Time: 05/09/2020 22:12:28 Reading Location: [address] Reading Room US abdomen [id number] 22:12:00 Interface, External Ris In - 05/09/2020 10:14 PM CDTFINAL REPORT TECHNIQUE: Grayscale ultrasound of the right abdomen. INDICATION: Transaminitis. COMPARISON: None. FINDINGS: MIDLINE VASCULATURE: The visualized inferior vena cava is patent. Portal vein is patent and measures 0.8cm in diameter. The maximum visualized aortic diameter is 2.5 cm. LIVER: The liver is normal in sizeand echogenicity with smooth contour. Liver measures 12.9 cm in length No focal lesions. BILIARY:Gallbladder: Prior cholecystectomyCommon bile duct measures 0.9 cm, mildly dilated. No intrahepatic biliary ductal dilatation. PANCREAS: Incompletely visualized due to overlying bowel gas. PERITONEUM: No fr ee fluid. RIGHT KIDNEY: The right kidney is normal in size and measures 11.2 cm in length. No hydronephrosis. No sonographically evident solid mass lesion. IMPRESSION:Mild dilation of the common bile duct measuring up to 0.9 cm which may represent reservoir effect from prior cholecystectomy. Correlate with liver function tests.. Signed: Karolyn Garcia MDReport Verified Date/Time: 122:12:28 Reading Location: [address] Reading [id number] 16:45:00 Test Item Value Reference Range Interpretation Comments Case Report (test code Surgical Pathology = 104) Report Case: [id number] Authorizing Provider: Maude Varghese MD Collected: 05/08/2020 08:18 AM Ordering Location: [address] Received: 05/09/2020 08:27 AM Service Pathologist: Jud Werner MD Specimen: Biopsy, Gastric, random gastric bx DIAGNOSIS (test code = [id number] 3220) FuZzEwMzNcZnRuYmpcdWMx IHtccnRmMVxlcGljOTIwMl kzbrNrVIHubECxO6Qndrhh HZuxRY5uXW3eyXaagBZsiK NbLJXlCiKqq1oli475zJQf b9deJYIPsnallTz3yWbzZ8 2wt4P2GosfL98vbPShZXgu bGFpblxmczIwIEEuIFNUT0 7NP0gyNJMYAyGAQLMIDH4X E1enjOSrOF3zSCOXARFVIs iZSUvQMQHALOMDCNrRP6PC SVRJUywgTUlMRFxwYXIgLS TsWN7GENiDASOYSBfYBXuw TUVUQVBMQVNJQSwgRFlTUE dMA4pVJK3GUQLIWqRVWg8D QSBJREVOVElGSUVEXHBhci SdNFReCx8aENQWEAEZQvGW WTODKOEGZZ9SUMUQUDfJOX 4MO8ABHRGGSyUGORLFBPrB TAFRHA3WYUrIIrSVNV8rL8 RBUlJZIFNUQUlOXHBhciAg SQMsnf30MKF8RjTta8M7IE J6YGFkCKTiw4gpLVGbmASp ZzEwMzNcZnRuYmpcdWMxXG YpUpPhb4ica482sSJhv5pv MOEgBtO9bMEsUSSleNFpB1 25CQSqUQmfz1iqj5MaWPGs kXNcy7C0BAZJkkheyWx8yY urX41tw1T1CspfW1gsFVQj ZACwJ5CuYL4tBVFjBjm3BA N5NEN7RVQsYREoC5InMH6v SPNtlEXsCLr6u8dqaAqgCP QqFTT7w9keDYqzvvQyXL1j sz8dhJd5g7uhlbCzHKOmNF PcaTNWAPCgB3ZzzLroRp1s yEb3cJbyBculRUG6Ntg1FG 4rre84vwc0mFixMIShaupu YkN7XBvtZEPqxqvdBXf4NX evPUHvpLH8BJTjyKDdL2Gd UXJsYM3ocik4GOG5SPinOE DmFzN5RWTwtORvUWEakJai TUbdi001SKZ9RgVoPI3nT0 Ags8F7jX7dvOJqHTDhkTOw OdNmHMGpnp0qmJGyJQgue2 KpGCN2ggQ0bXRsnGRuMIEc QuH8WDafIP4kwm14JXSiMQ Y1mg7ixPUgfZofxsEuhXQo ESjlA2LvTNJoz558ZSHqN9 NbYJTxs0C6wjZjBzBlHFSv iCB1xvS6WEEvWW5nukjlc1 mzZAgfPNetIXJdirC6faG0 QDRwrVCpY8FslT7eMVWuZW 2deaeeu8dkZEB0DEedNQSc VGA7CjOlJIQte2Ngbud3Nt Hjx0MloVUrKLpfW66nk229 UXIsyhAuN8ribXTzulnnrI QxkmbvBHoujvW1LCGuKSxq uqyuRFDzADarJ4eaQbWtFL GhhLwwLJguv2YpLAXtBUYq DwQyiTHnXEQcRsy3QARpsB PiGFPpSlTxL4cpcauxMxSM ELVmr1itO8wwrLDRbRRqF8 QgUGhvbmUgTGluZTogODMy BNR7SK72PAolHOCqvs52 CPT Code(s) (test code y5kblUOmWHQzaKZ1DbXpYH = 3357) Qcf1riu5YvcEZxcSJlBAiz pIHwrvMkra34rAP1qK01RR 3fBVHmNmT1VUNbscC8Ckx4 LNTyAHByrRDxH986u7sdy9 zpqkJbnKM6uShuIUUrTBBr YWluXGZzMjAgODgzMDUsID s6WlCqATYgdu5= CLINICAL HISTORY (test f0arlVFmWVFxxCL4FeFaRJ code = 3356) Psy6oac4IifXXopEMiNTzv rFNomoPdun88mTR6zE14FO 6kWFCwKzL4TEPtseS3Quq3 WBZuASRgeMOvL120t6fix4 xknoSaeYV8oVgxXLQjJTCt YWluXGZzMjAgZXNvcGhhZ2 SgiQY3eHybw3CffJ4dIHKk cn0= SPECIMEN SOURCE (test t9cdiMTiSXQjgWB4ZiTnIF code = 3377) Reo1tfp8PkhUXdnWQiBXuz gGEoflHqoq97kUM6kK01DZ 6jXRAfRwU8JZPcttT0Khm4 WUQqPSXjpGAfV808o4ayh8 pfkgYteGI5bMdjHURkBOWu DYdrBJMyTdAgO9CerVOwN3 xwYXJ9 GROSS DESCRIPTION (test g8bfhZJtUNCavUTmSvEjNP code = 3366) TuEIRta0chTMZljCWdAqLk MzNcZnRuYmpcdWMxXGRlZm Qjx7qhy106xGStr6hmYGZc VjR2iMElXSUfyQDdN099m2 vvn8qrxlLhrKY1PYGxHPD0 JRvrsjLayhE2SWdfbJWrTv Q7OPwireBeMIqixmScwbEy Fsv3CVJrU581IUV1sBwwg8 jdGCQ9FINvOYUfFkDsXv4v lROnP729UDBhWVYJEIZnyR y5WXBvkwJzqnWydXXOp994 C516j1juGJNglaZtpCsDew bhp8ytJ015SNVejBWvokAj KgQzXRNyzXSzpDZ4QSRlEY 9tlqjhUmFyQK0lmonjYnQz FI6cyuh0ReEzAY6geixbAt CsUAcdYKGleuihUQJoz4Yn yzcrUT2sM2Cfo6U1kB4xfT PdNFJmqTWoAhRnPOYxlk5v qQOuRJlkw0CeEUY3jzU2pI FruKVcIOEhVG66Raskt5Ds BtlvCLY8FAXjgqPtq0Jbo0 dhCoFoojZmW7pzO4SmHXXb JURyDYJnUoJbarBfr5Ial6 XetRVqtGs7o5ykPOCxVMHv aDqqd3faEQP4DPTjG4M2oK Fpo3kyTEleXTJwtRU8nngr NVqbCVRmctA3nmwxDChdPC OlgCT7fhskMOqgUTRwYuY2 rrwwXQdsGYPtFBE9RMvtw4 76SXO7FLgaBljnSDerCVEt bmNvbnRccGduZGVjXHBsYW luXHBsYWluXGYwXGZzMjRc wKxlwFsglG4oVdGeRcHgWZ peTK6zZMJqD6babOPcYRXu MSQkU1vbCfUzwM9njSzhMH aepuBgFXEnE0OokqWbEBqc QAVbvj5ucXfoCXjaZlCvJP QgdGhlIHBhdGllbnQncyBu EA0dEERhQ7Ozo6Hkd53aep AcQpGkAPWnGTDmM6JrwQHv KrDqzK2jw6nrAPkhLJGdVX 0zUHleFV4zAZgbIQ9dRQDz RFRvsh8koT7kFJKkn9B1BE NvcuQizNIwaEF8pIjytSEk rgUagEu8GOPgWUBjlcTga8 YisSe4zNFfGEdjWOJtdE9y lG8fQWGuMXZgznbcQZWjGH lsYXIgQXJndWVsbGVzLCBQ GXzjZNTgTHZRK8RtCSRqrq 0= MICROSCOPIC DESCRIPTION p5gqmDVoOEXtySQ7JuEaXR (test code = 3371) Fdf4isp7AoxOMxdQSsNDfm oZJuowByvx43sMB1jX12RO 0nXOJjDiL7IPQqhxW9Uzt4 YAIaIUSnvBAvQ301h2nvc8 dafgSubWY5ePcfOYHvNSKo DHmiCTDfYxXsOBSlXp6rgH VkLlxwYXJ9 SPECIAL STUDIES (test p0rgwOXrZYYue2lzUHWymG code = 3376) FuZzEwMzNcZnRuYmpcdWMx NQqrhjPiYMstp3UtX8PiJq AwMFxhbnNpXGRlZmxhbmcx GSDaJZE9qjHkMLUeSCaoVZ SeGSayNg5vkZGaoJkmPqLj EPMhe7azytKOndclcTr2n6 utJGJsKxV5nYOxDFilK9iy zvGfpIPrF5XajGPueKa0y7 crUwIrAlA9xCHwHDbwI2mx pvGpqDMeKWCqNGt2dQ79QD XwtQ6mlFKiABoqtwMiOtE6 OZqnETYqKaD9NAUcbEZhZF TtH9stUELdUYshXJQoYDtb nVImKIH2lEoiu1U8fRZncK ArkNihQcSrJnPbYbTWm2Yo JCz5eZgyL2OlPNVcXpR5eI QgUGFyYWdyYXBoIEZvbnQ7 lAaflpEgs72uuXQtIGBwDJ XbVtXzcFsyBAJtZXPXn4Fq fIlbKNT5bAw8cYjxAcvnNG O4Iwj8NG8akw30wge7oCur AIPohzahDcW0BGcqUQLpwx kcTRu6HDsjAJMhjSC5WBRf oVMlJ2PnLPOqYU5dpxn0XH N1OTdeUAOoRdT8GYYesJGu ITWhwYbvGRvsy679RJO3Si HpVT9cB5Uoh1F8fF6vdWLp FBDgfLXlGqLeWZEwmw9epM ImLClfk8UeCFW5utN2nCMi oMJrVURzEZ78Tnbuv1ZzIj ohw9UiP20qgFL8IGixi5ni LD5mYzF3kkBoCHtii4witY 7pVrH6PUaoWY9sFG1eUKGx oP6tfxzqHGQiUfTtpzfiAX PgfFrmmpXwEx2lfTdgSRS3 UCzfY2mtiI2aChW1RWhqW9 ochM1pGZo3DJxodGR5VUHg oF5wQL7wswqwz2eoOVxxYD hwDZFnclJ8zeE8EQCpqKHm N8RfeS4oVMFqEE6vxtrxg0 tgDPS5UCswDRQkBPZ7CxZy XLHqj0Cdyxa5NfSpi6OghE HpDPllO36hh349VBZzqoSc B9obcYNaoheyoJSvsiykDK kcrtU7FRVxVGEtQLamHNTk XGZzMjJcbGFuZzEwMzNcaG ljaFxmMVxkYmNoXGYxXGxv Z5vuPyOfB6EkIMYfGuTtIM ytAYaegSYxsAVhwFQ5yB0m KW3cIUNclDPyC5OyIUVttr QyvJZzKAE0gEUprRJtHS0v VIfzkONkv8gge7ZcT5fayX ilrBG4OM5aQSPmRQZuYCtp q6UgeI0gXxdcyNVwgivvWM xmczIyXGxhbmcxMDMzXGhp S1dyDbBpHTKroRgdWXuiq1 NoXGYxXGNmMlxmczIyXGx0 cmNoXHBhclxwYXJccGxhaW 7wWeHcUeFtWoqbIK2hWVGi R3sghIHnIIHvPRCgD6naZi EylL9vpMktGWgjQyJqHdIx SeHJv357xi5vBJNwbOHxbz GAvZAeiL4iWEmsBSxtEPbb rENwAOfyc0zpOBJrs0r8mN YdWTSvwiJdc4etCJysbmSb JHDkwUOhcGWtGJPcv99kYS kowQabrMmdPNPwh9CpfYpb v5IoXkDfSOfqd2SdM37xbF JvbCBzbGlkZXMgcnVuIGFs p17ud1piBCDdKdY6cRLcpM J2kTLdbTUzr3BplScqSZZu a9xwACVzby6ulkmeoXAwz8 VptD8jzjgbQWcwgPQkupJo NDFap0c4sQBvGIVdKWTzYK mtaTt2DMBaa492tg1ltdP9 xYGrDXJ6BBwdZNPxSMNmzj UgZXZhbHVhdGVkXHBsYWlu XGYxXGZzMjJcbGFuZzEwMz NcaGljaFxmMVxkYmNoXGYx LSglI1ppPkYqT7CjOYHyYx CnlBAzT1qehCDoISKhYWkw XGYxXGZzMjJcbGFuZzEwMz NcaGljaFxmMVxkYmNoXGYx QGwpX1efBgTyL4NcAOOkGb IgIFxwbGFpblxmMVxmczIy YOwzzixwSTInBFdnZ4akJp LkSXYgiZmeZKqwq7UuLANv XZByBdahwuPeJTg9bmSlKG BhclxwbGFpblxmMVxmczIy DAutnolzOFPtBSiiN1rzHs PoVXRhgYemLNofg7FeHKVt XGNmMlxmczIyIEltbXVub2 pih4EuM7admXqooCV3YELu V2wthAPguTL3GAU0qK8cYH ykrhSkOGQpl8LaDKLjWZUi SrF2hS3jZMZ2UtIUxKagDK BsYWluXGYxXGZzMjJcbGFu ZzEwMzNcaGljaFxmMVxkYm RgJNEsFJasV1jyGjWwX0Zd FKDzFlUmiNymIFhaDSb9Fc xwbGFpblxmMVxmczIyXGxh cvluAPPyRIfgB4wtInYyBU IeaFxtKRymk7MlSEYqYNFj MlxmczIyIHMgTWVkaWNhbC DUOC24EGJyQTMamKvubK4e tSZNUOSgojZ7o8P0EHyjRV IvKJb1IIpnjmBeAVNgwS0a YLDzKK0cOIm3flAbKSBxg5 KsOF5fQOWitDFbTLJ2DNWs v9AqT3Eue0SsZHOlHTQnqd 7qdsGoBjUXfYCyRZPmyc92 GFVsNC4qH4xsTBQrPLMaek QwbEQdo5IuYUIviQY2iWTj VA7EThIYv63bPSBeQSMLnh TnQPUyzIoaiQD4zcB7zN3s LiBUaGUgRkRBIGhhcyBkZX Svvq3breEnDPJhOTZpy8Hy wEDxoGCrwpNoB5Ubw4GcKO Jwek14QGhqnCRuzc93JX2v W9Qhn0XkzB3eEYcsHSRgz9 ZojXPsbMHiMTHwe3JwA9ph kvcqQVfhnMTatZ7uSNNuBI y2TKTqr8CiJOBsf6SdKnMd vnTcQMNqGXDyGKYboQ12MH W4qHszkBzaraAxVX9bFIVu ewHoKZUkHLIxrU4nGGohjb KiQAQuxyB7v1X1SPikVFRs cjIzFjeiKVV1haNbtdL8mZ FqO5nacyhrEKauFIRpc4Mq cJ7nxVLLdUUgi0LvyAOehM POzHKwOM2wueVcJL2vPDU8 ODggKENMSUEtODgpIGFzIH R7DWqlUkfmSGI5hfMmSDYx w7FnEGzpE4gnS34jtEtjxZ i4tQDblVtjmYCubTStICBi mmG0l9B7VSSea2LrpgmjZX BsYWluXGYyXGZzMjJcbGFu ZzEwMzNcaGljaFxmMlxkYm ScRJGoTFssQ6yyMnCcKmIq WpqzLTO2xE== Gross assessment was [facility] performed at ([facility], = [phone]) Department of Pathology, [address] [place] [id number], Technical component was [facility] performed at ([facility], = [phone]) Department of Pathology, [address] [place] [id number], Professional component [facility] was performed at ([facility], code = [phone]) Department of Pathology, [address] [place] [phone], [facility] [id number] 16:45:00Surgical Pathology Report Case: [id number] Authorizing Provider: Maude Varghese MD Collected: 05/08/2020 08:18 AM Ordering Location: [address] Received: 05/09/2020 08:27 AM Service Pathologist: Jud Werner MD Specimen: Biopsy, Gastric, random gastric bx A. STOMACH, RANDOM BIOPSY- CHRONIC INACTIVE GASTRITIS, MILD- NO INTESTINAL METAPLASIA, DYSPLASIA OR CARCINOMA IDENTIFIED- NO HELICOBACTER PYLORI LIKE ORGANISMS IDENTIFIED ON WARTHIN STARRY STAIN Signing Patho logist Direct Phone Line: [phone] signed by Jud Werner MD on 05/09/2020 at 4:45 [id number], [id number] thickeningGastricReceived in formalin labeled the patient's name, accession number and "gastric biopsy" is a 0.3 x 0.2 x 0.1 cm gilbert-pink tissue fragment which is filtered and submitted in toto in A1.SUSAN Mckenna, HT (ASCP)Performed.The interpretation of this case included the use of immunohistochemistry or special stains.Control Slides Examined: In-house known positive controls were evaluated along with the test tissue. These control slides run alongside of the patients sample show appropriate staining. Internal positive and negative controls when available are evaluated Immunohistochemistry technical testing was performed at [facility], Pathology Laboratory where it was developed and its performance characteristics were determined. It has not been cleared or approved by the U.S. Food and Drug Administration. The FDA has determined that such clearance or approval is not necessary. The test is used for clinical purposes. It should not beregarded as investigational or for research. This laboratory is certified under the Clinical Laboratory Improvement Amendments of 1988 (CLIA-88) as qualified to perform high complexity clinical laboratory testing.[facility], Department of Pathology, [address] [place] [id number], [facility], [address] [place] [id number], [facility], [facility] of Pathology, [address] [place] [id number], [id number] METABOLIC [id number] 13:06:00 Test Item Value Reference Range Interpretation Comments TOTAL PROTEIN 5.9 gm/dL 6.0-8.3 L (BEAKER) (test code = 770) ALBUMIN (BEAKER) 3.2 g/dL 3.5-5.0 L (test code = 1145) ALKALINE PHOSPHATASE 106 U/L 40-150 (BEAKER) (test code = 346) BILIRUBIN TOTAL 0.9 mg/dL 0.2-1.2 (BEAKER) (test code = 377) SODIUM (BEAKER) (test 138 meq/L 136-145 code = 381) POTASSIUM (BEAKER) 3.4 meq/L 3.5-5.1 L (test code = 379) CHLORIDE (BEAKER) 102 meq/L 98-107 (test code = 382) CO2 (BEAKER) (test 26 meq/L 22-29 code = 355) BLOOD UREA NITROGEN 7 mg/dL 7-21 (BEAKER) (test code = 354) CREATININE (BEAKER) 0.68 mg/dL 0.57-1.25 (test code = 358) GLUCOSE RANDOM 99 mg/dL 70-105 (BEAKER) (test code = 652) CALCIUM (BEAKER) 8.8 mg/dL 8.4-10.2 (test code = 697) AST (SGOT) (BEAKER) 42 U/L 5-34 H (test code = 353) ALT (SGPT) (BEAKER) 31 U/L 6-55 (test code = 347) EGFR (BEAKER) (test 86 mL/min/1.73 ESTIMA HERBIE GFR IS code = 1092) sq m NOT ACCURATE CREATININE CLEARANCE IN PREDICTING GLOMERULAR FILTRATION RATE . ESTIMATED GFR I S NOT APPLICABLE FOR DIALYSIS PATIEN TS. [facility] Coordinator ID - HAROON COperator ID - HAROON CManual [id number] 12:59:00 Test Item Value Reference Range Interpretation Comments % Neutros (test code = 90 % 2816) % Lymphs (test code = 7 % 2817) % Monos (test code = 3 % 2818) # Neutros (test code = 18.18 K/ul 1.56-6.13 H 2830) # Lymphs (test code = 1.41 K/ul 1.18-3.74 2831) # Monos (test code = 0.61 K/uL 0.24-0.36 H 2832) Total Counted (test 100 code = 1351) WBC Morphology (test Normal code = 487) Platelet Morphology Normal (test code = 486) Polychromasia (test 1+ few code = 478) Artifact (test code = Present 3432) Platelet Conc (test Adequate code = 3438) KAYLA (test code = KAYLA) [facility] Coordinator ID - Zaria Awais comments: Slide comments: Lab Interpretation Abnormal (test code = 63607-8) [facility] W/PLT COUNT & AUTO [id number] 12:59:00 Test Item Value Reference Range Interpretation Comments WHITE BLOOD CELL COUNT (BEAKER) 20.2 K/ L 3.5-10.5 H (test code = 775) RED BLOOD CELL COUNT (BEAKER) 3.78 M/ L 3.93-5.22 L (test code = 761) HEMOGLOBIN (BEAKER) (test code = 12.0 GM/DL 11.2-15.7 410) HEMATOCRIT (BEAKER) (test code = 35.0 % 34.1-44.9 411) MEAN CORPUSCULAR VOLUME (BEAKER) 92.6 fL 79.4-94.8 (test code = 753) MEAN CORPUSCULAR HEMOGLOBIN 31.7 pg 25.6-32.2 (BEAKER) (test code = 751) MEAN CORPUSCULAR HEMOGLOBIN CONC 34.3 GM/DL 32.2-35.5 (BEAKER) (test code = 752) RED CELL DISTRIBUTION WIDTH 13.8 % 11.7-14.4 (BEAKER) (test code = 412) PLATELET COUNT (BEAKER) (test 229 K/CU MM 150-450 code = 756) MEAN PLATELET VOLUME (BEAKER) 11.6 fL 9.4-12.3 (test code = 754) NUCLEATED RED BLOOD CELLS 0 /100 WBC 0-0 (BEAKER) (test code = 413) (CELLAVISION MANUAL DIFF)2020-05-09 12:59:00 Test Item Value Reference Range Interpretation Comments NEUTROPHILS - REL 90 % (CELLAVISION)(BEAKER) (test code = 2816) LYMPHOCYTES - REL 7 % (CELLAVISION)(BEAKER) (test code = 2817) MONOCYTES - REL 3 % (CELLAVISION)(BEAKER) (test code = 2818) NEUTROPHILS - ABS 18.18 K/ul 1.56-6.13 H (CELLAVISION)(BEAKER) (test code = 2830) LYMPHOCYTES - ABS 1.41 K/ul 1.18-3.74 (CELLAVISION)(BEAKER) (test code = 2831) MONOCYTES - ABS 0.61 K/uL 0.24-0.36 H (CELLAVISION)(BEAKER) (test code = 2832) TOTAL COUNTED (BEAKER) (test code 100 = 1351) WBC MORPHOLOGY (BEAKER) (test code Normal = 487) PLT MORPHOLOGY (BEAKER) (test code Normal = 486) POLYCHROMATOPHILLIC RBCS(BEAKER) 1+ few (test code = 478) ARTIFACT (CELLAVISION)(BEAKER) Present (test code = 3432) PLATELET CONCENTRATION Adequate (CELLAVISION)(BEAKER) (test code = 3438) [facility] Coordinator ID - Zaria Ernandez comments: Slide comments:Peripheral Blood Smear - Path [id number] 11:42:00 Test Item Value Reference Range Interpretation Comments RBC Morphology (test Macrocytosis code = 9766) WBC Morphology (test See comment code = 0707) Platelet Morphology No ClumpingNo (test code = 2848) Satellitosis Pathologist Review WBC demonstrate a (test code = 2640) leukocytosis predominantly composed of mature neutrophils with occasional hypersegmented forms. No circulating blast identified. Lymphocytes demonstrates reactive and few atypical forms. Pathologist: (test Neri Del Cid MD code = 2849) (electronic signature) [facility] 2020-05-09 11:42:00 Test Item Value Reference Range Interpretation Comments RBC MORPHOLOGY Macrocytosis (BEAKER) (test code = 2846) WBC MORPHOLOGY See comment (BEAKER) (test code = 2847) PLT MORPHOLOGY No Clumping (BEAKER) (test code = 2848) PLT MORPHOLOGY No Satellitosis (BEAKER) (test code = 95804) PERIPHERAL SMR REVIEW WBC demonstrate a (BEAKER) (test code = leukocytosis 2640) predominantly composed of mature neutrophils with occasional hypersegmented forms. No circulating blast identified. Lymphocytes demonstrates reactive and few atypical forms. [id number] Neri Del Cid MD (BEAKER) (test code = (electronic signature) 2849) CT, BRAIN, WITHOUT [id number] 03:55:00Unlisted Reason for Exam - Click Yes and Enter Reason Below->No [facility] 1950 Sex: FFINAL REPORT EXAM: CT head without contrast. CLINICAL HISTORY: Stroke, follow up COMPARISON: Head CT 05/07/2020. TECHNIQUE: CT images of the head were obtained without intravenous contrast. This exam was performed according to our departmental dose optimization program which includes automated exposure control, adjustment of the mA and/or kV according to patient's size and/or use of iterative reconstructive technique. FINDINGS: Again seen are evolving areas of acute infarction in the right frontal, right temporal and right parietooccipital lobes. There is mild gyriform hyperdensity within the areas of infarction compatible with petechial hemorrhage, present on prior exam. There is no extra-axial fluid collection, herniation or hydrocephalus. The basal cisterns are patent. The visualized orbits are normal. The left mastoid air cells are underpneumatized. There is mild opacification of the right mastoid air cells. The visualized paranasal sinuses are clear. The skull base and calvarium are intact. IMPRESSION: Multiple evolving acute right MCA territory infarcts with hemorrhagic transformation. No midline shift or hydrocephalus. Signed: Keila Tiradoort Verified Date/Time: 05/09/2020 03:55:47 [facility] brain without IV [id number] 03:55:00Interface, External Ris In - 05/09/2020 3:58 AM CDTFINAL REPORT EXAM: CT head without contrast. CLINICAL HISTORY: Stroke, follow up COMPARISON: Head CT 05/07/2020. TECHNIQUE: CTimages of the head were obtained without intravenous contrast. This exam was performed according [facility] departmental dose optimization program which includes automated exposure control, adjustment of t he mA and/or kV according to patient's size and/or use of iterative reconstructive technique. FINDINGS: Again seen are evolving areas of acute infarction in the right frontal, right temporal and right parietooccipital lobes. There is mild gyriform hyperdensity within the areas of infarction compatiblewith petechial hemorrhage, present on prior exam. There is no extra- axial fluid collection, herniation or hydrocephalus. The basal cisterns are patent. The visualized orbits are normal. The left mastoid air cells are underpneumatized. There is mild opacification of the right mastoid air cells. The visualized paranasal sinuses are clear. The skull base and calvarium are intact. IMPRESSION: Multiple evolving acute right MCA territory infarcts with hemorrhagic transformation. No midline shift or hydrocephalus. Signed: Keila Tiradoeport Verified Date/Time: 05/09/2020 03:55:47 [facility]O [id number] 07:37:00 Test Item Value Reference Range Interpretation Comments WHITE BLOOD CELL COUNT (BEAKER) 21.7 K/ L 3.5-10.5 H (test code = 775) RED BLOOD CELL COUNT (BEAKER) 3.64 M/ L 3.93-5.22 L (test code = 761) HEMOGLOBIN (BEAKER) (test code = 11.4 GM/DL 11.2-15.7 410) HEMATOCRIT (BEAKER) (test code = 34.8 % 34.1-44.9 411) MEAN CORPUSCULAR VOLUME (BEAKER) 95.6 fL 79.4-94.8 H (test code = 753) MEAN CORPUSCULAR HEMOGLOBIN 31.3 pg 25.6-32.2 (BEAKER) (test code = 751) MEAN CORPUSCULAR HEMOGLOBIN CONC 32.8 GM/DL 32.2-35.5 (BEAKER) (test code = 752) RED CELL DISTRIBUTION WIDTH 14.0 % 11.7-14.4 (BEAKER) (test code = 412) PLATELET COUNT (BEAKER) (test 194 K/CU MM 150-450 code = 756) MEAN PLATELET VOLUME (BEAKER) 12.0 fL 9.4-12.3 (test code = 754) NUCLEATED RED BLOOD CELLS 0 /100 WBC 0-0 (BEAKER) (test code = 413) (CELLAVISION MANUAL DIFF)2020-05-08 07:37:00 Test Item Value Reference Range Interpretation Comments NEUTROPHILS - REL 84 % (CELLAVISION)(BEAKER) (test code = 2816) LYMPHOCYTES - REL 13 % (CELLAVISION)(BEAKER) (test code = 2817) MONOCYTES - REL 2 % (CELLAVISION)(BEAKER) (test code = 2818) EOSINOPHILS - REL 1 % (CELLAVISION)(BEAKER) (test code = 2819) NEUTROPHILS - ABS 18.23 K/ul 1.56-6.13 H (CELLAVISION)(BEAKER) (test code = 2830) LYMPHOCYTES - ABS 2.82 K/ul 1.18-3.74 (CELLAVISION)(BEAKER) (test code = 2831) MONOCYTES - ABS 0.43 K/uL 0.24-0.36 H (CELLAVISION)(BEAKER) (test code = 2832) EOSINOPHILS - ABS 0.22 K/uL 0.04-0.36 (CELLAVISION)(BEAKER) (test code = 2834) TOTAL COUNTED (BEAKER) (test code 100 = 1351) RBC MORPHOLOGY (BEAKER) (test code Normal = 762) WBC MORPHOLOGY (BEAKER) (test code Normal = 487) PLT MORPHOLOGY (BEAKER) (test code Normal = 486) ARTIFACT (CELLAVISION)(BEAKER) Present (test code = 3432) PLATELET CONCENTRATION Adequate (CELLAVISION)(BEAKER) (test code = 3438) [facility] Coordinator ID - Juanis OverholtUser comments: Slide comments:COMPREHENSIVE METABOLIC [id number] 05:55:00 Test Item Value Reference Range Interpretation Comments TOTAL PROTEIN 5.7 gm/dL 6.0-8.3 L (BEAKER) (test code = 770) ALBUMIN (BEAKER) 3.1 g/dL 3.5-5.0 L (test code = 1145) ALKALINE PHOSPHATASE 100 U/L 40-150 (BEAKER) (test code = 346) BILIRUBIN TOTAL 0.6 mg/dL 0.2-1.2 (BEAKER) (test code = 377) SODIUM (BEAKER) (test 137 meq/L 136-145 code = 381) POTASSIUM (BEAKER) 3.5 meq/L 3.5-5.1 (test code = 379) CHLORIDE (BEAKER) 103 meq/L 98-107 (test code = 382) CO2 (BEAKER) (test 23 meq/L 22-29 code = 355) BLOOD UREA NITROGEN 9 mg/dL 7-21 (BEAKER) (test code = 354) CREATININE (BEAKER) 0.76 mg/dL 0.57-1.25 (test code = 358) GLUCOSE RANDOM 104 mg/dL 70-105 (BEAKER) (test code = 652) CALCIUM (BEAKER) 8.6 mg/dL 8.4-10.2 (test code = 697) AST (SGOT) (BEAKER) 35 U/L 5-34 H (test code = 353) ALT (SGPT) (BEAKER) 29 U/L 6-55 (test code = 347) EGFR (BEAKER) (test 76 mL/min/1.73 ESTIMA HERBIE GFR IS code = 1092) sq m NOT ACCURATE CREATININE CLEARANCE IN PREDICTING GLOMERULAR FILTRATION RATE . ESTIMATED GFR I S NOT APPLICABLE FOR DIALYSIS PATIEN TS. [facility] Coordinator ID - RIK VERNON, SILVERIO [id number] 19:23:00Unlisted Reason for Exam - Click Yes and Enter Reason Below->YesUnlisted Reason for Exam->Changing neurological symptoms. Known CVA [facility] 1950 Sex: FFINAL REPORT EXAM: CT, CT Angio Brain CLINICAL HISTORY: Unlisted Reason for Exam. Changing neurological symptoms. Known CVA COMPARISON: Non-. TECHNIQUE: Noncontrast head CT was performed. CT angiogram of the brain was performed with intravenous contrast. MIP and volume rendered reformatted images were obtained. This exam was performed according to our departmental dose opti mization program which includes automated exposure control, adjustment of the mA and/or kV accordingto patient's size and/or use of iterative reconstructive technique. FINDINGS: Noncontrast head CT:There are areas of barron-white differentiation in the right frontal, right parietal and right temporal and right occipital lobes consistent with evolving right MCA territory infarcts. There is mild gyriform hyperdensity in the right parietotemporal lobe compatible with petechial hemorrhage. There is no extra-axial fluid collection, herniation or hydrocephalus. The basal cisterns are patent. The visualized orbits are normal. The left mastoid air cells are underpneumatized. There is mild opacification of the right mastoid air cells. The visualized paranasal sinuses are clear. The skull base and calvarium are intact. Head CTA:There is occlusion of the right distal cervical, petrous and cavernous internal carotid artery (ICA) with reconstitution at the right supraclinoid ICA.The left intracranial and skull base internal carotid arteries demonstrate normal flow-related enhancement. There is good flow related enhancement of the bilateral anterior, middle and posterior cerebral arteries and within the basilar artery. The right M2 branches are mildly diminutive when compared to the left. The vertebral a rteries demonstrate normal flow-related enhancement. There is no vascular aneurysm. IMPRESSION: HeadCT:Multiple evolving acute right MCA territory infarcts with hemorrhagic transformation. Head CTA:Occlusion of the right distal cervical, skull base and cavernous ICA, presumably chronic with reconstitution at the level of the right supraclinoid ICA. A CT angiogram of the neck is recommended for further evaluation. Patent right anterior and middle cerebral arteries. Mildly diminutive caliber of the M2 segment of the right MCA. Discussed with neurology ICU resident at 721 PM 05/07/2020. Signed: Keila Tirado MDReport Verified Date/Time: 05/07/2020 19:23:01 [facility] [id number] 19:23:00 Interface, External Ris In - 05/07/2020 9:12 PM CDTFINAL REPORT EXAM: CT, CTAngio Brain CLINICAL HISTORY: Unlisted Reason for Exam. Changing neurological symptoms. Known CVA COMPARISON: Non-. TECHNIQUE: Noncontrast head CT was performed. CT angiogram of the brain was performed with intravenous contrast. MIP and volume rendered reformatted images were obtained. This exam was performed according to our departmental dose optimization program which includes automated exposure control, adjustment of the mA and/or kV according to patient's size and/or use of iterative reconstructive technique. FINDINGS: Noncontrast head CT:There are areas of barron-white differentiation in the right frontal, right parietal and right temporal and right occipital lobes consistent with evolving right MCA territory infarcts. There is mild gyriform hyperdensity in the right parietotemporal lobe compatible with petechial hemorrhage. There is no extra-axial fluid collection, herniation or hydrocephal us. The basal cisterns are patent. The visualized orbits are normal. The left mastoid air cells areunderpneumatized. There is mild opacification of the right mastoid air cells. The visualized paranasal sinuses are clear. The skull base and calvarium are intact. Head CTA:There is occlusion of the right distal cervical, petrous and cavernous internal carotid artery (ICA) with reconstitution at the right supraclinoid ICA.The left intracranial and skull base internal carotid arteries demonstrate normal flow-related enhancement. There is good flow related enhancement of the bilateral anterior, middleand posterior cerebral arteries and within the basilar artery. The right M2 branches are mildly diminutive when compared to the left. The vertebral arteries demonstrate normal flow-related enhancement.There is no vascular aneurysm. IMPRESSION: Head CT:Multiple evolving acute right MCA territory infarcts with hemorrhagic transformation. Head CTA:Occlusion of the right distal cervical, skull base and cavernous ICA, presumably chronic with reconstitution at the level of the right supraclinoid ICA. A CT angiogram of the neck is recommended for further evaluation. Patent right anterior and middle cerebral arteries. Mildly diminutive caliber of the M2 segment of the right MCA. Discussed with neurologyICU resident at 721 PM 05/07/2020. Signed: Keila Tirado MDReport Verified Date/Time: 05/07/2020 19:23:01 [facility] HospitalUrinalysis w/Microscopic + Reflex to [id number] 18:22:00 Test Item Value Reference Range Interpretation Comments Color, UA (test code Yellow = 5778-6) Clarity, UA (test Clear code = 5767-9) Specific [place], UA 1.016 1.001-1.035 (test code = 5811-5) pH, UA (test code = 6.0 5.0-8.0 5803-2) Protein, UA (test 10 mg/dL Negative A code = 52781-0) Glucose, UA (test Negative Negative code = 365) Ketones, UA (test Trace Negative A code = 2514-8) Bilirubin, UA (test Negative Negative code = 58772-1) Blood, UA (test code Negative Negative = 18969-6) Nitrite, UA (test Negative Negative code = 5802-4) Leukocytes, UA (test Trace Negative A code = 5799-2) Urobilinogen, UA 0.2 mg/dL 0.2-1 (test code = 07029-5) RBC, UA (test code = <1 See_Comment [Autom ated 30162-8) message] The system which generated this result transmitted reference range : /HPF. The reference range was not used to interpret this result as normal/abnormal . WBC, UA (test code = 1 See_Comment [Autom ated 5821-4) message] The system which generated this result transmitted reference range : /HPF. The reference range was not used to interpret this result as normal/abnormal . Mucus (test code = Occasional 8247-9) Squam Epithel, UA 6 See_Comment [Automate d (test code = 44593-9) messag e] The system which generated this result transmitted reference range : /HPF. The reference range was not used to interpret this result as normal/abnormal . Specimen Source (test code = 2795) KAYLA (test code = KAYLA) [facility] Coordinator ID - [auto]Community Center Coordinator ID - tech Lab Interpretation Abnormal (test code = 93320-1) [facility] [id number] 18:22:00 Test Item Value Reference Range Interpretation Comments COLOR (BEAKER) (test code = 470) Yellow CLARITY (BEAKER) (test code = 469) Clear SPECIFIC GRAVITY UA (BEAKER) (test 1.016 1.001-1.035 code = 468) PH UA (BEAKER) (test code = 467) 6.0 5.0-8.0 PROTEIN UA (BEAKER) (test code = 10 mg/dL Negative A 464) GLUCOSE UA (BEAKER) (test code = Negative Negative 365) KETONES UA (BEAKER) (test code = Trace Negative A 371) BILIRUBIN UA (BEAKER) (test code = Negative Negative 462) BLOOD UA (BEAKER) (test code = Negative Negative 461) NITRITE UA (BEAKER) (test code = Negative Negative 465) LEUKOCYTE ESTERASE UA (BEAKER) Trace Negative A (test code = 466) UROBILINOGEN UA (BEAKER) (test 0.2 mg/dL 0.2-1.0 code = 463) RBC UA (BEAKER) (test code = 519) < /HPF WBC UA (BEAKER) (test code = 520) 1 /HPF MUCUS (BEAKER) (test code = 1574) Occasional SQUAMOUS EPITHELIAL (BEAKER) (test 6 /HPF code = 516) SOURCE(BEAKER) (test code = 2795) [facility] Coordinator ID - [auto]Community Center Coordinator ID - techECHO W CONTRAST & [id number] 16:38:14Ejection FractionSLEH ECHO HEARTLAB MKCKESSON CPACSInterface, External Ris In - 05/07/2020 4:38 PM CDTTransthoracic Echocardiography Report (TTE) Demographics Patient Name MONCHO, Date of Study 05/07/2020 BELLO Gender Female Visit Number [id number] Race Unknown Room Number 2239 Number Date of 1950 Referring Physician YVETTE RUST Age 69 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 IV saline contrast injection was technically inadequate to detect a PFO (patent foramen ovale) at rest and post Valsalva. The left ventricle is chamber size (by vol index) is small. No apparent segmental wall motion abnormalities. Estimated LVEF by qualitative assessment is normal (>60%) . Grade 1 diastolic dysfunction (impaired relaxation and low-normal LA pressure). Unable to estimate peak systolic PA pressure;inadequate TR velocity signal. Signature Findings Left Ventricle Parasternal long axis measurements not possible. The left ventricle is chambersize (by vol index) is small. Normal overall left ventricular systolic function. No apparent segmental wall motion abnormalities. Estimated LVEF by qualitative assessment is normal (>60%) . Grade 1 diastolic dysfunction (impaired relaxation and low-normal LA pressure). Left Atrium LA size is mildly enlarged . Right Ventricle Normal right ventricle structure and function. Right Atrium Normal right atrium. Atrial Septum IV saline contrast injection was technically inadequate to detect a PFO (patentforamen ovale) at rest and post Valsalva . Mitral Valve Normal MV s tructure. Tricuspid Valve A trace of tricuspid regurgitation. Unable to estimate peak systolic PA pressure; inadequate TR velocity signal. Pulmonic Valve PV is not well visualized. Aorta Aortic root size (SInus of Valsalva diameter) is normal . Pericardium No evidence of pericardial effusion. IVC/SVC/PA/PV/Pleural The estimated RA pressure by IVC dynamics 0-5mmHg . Chambers/Structures Left Atrium LA Dimension: 3.06 cm LA Area: 23.51 cm^2 LA Volume: 75.97 ml LA Vol.Index: 40 ml/m^2 Left Ventricle LVEDV Orourke's:54.22 ml LVESV Orourke's:19.81 ml LVEF Orourke's: 63.3 % LVEDVI: 28 ml/m^2 LVOT Diameter: 2.06 cm LVESVI: 10 ml/m^2 Aorta Ao Root S of Debra.: 2.96 cm Doppler/Quantitative Measurements Mitral Valve MV Peak E-Wave: 0.84 m/s MV Peak A-Wave: 1.16 m/s E/ARatio: 0.72 Peak Gradient: 2.83 mmHg Deceleration Time: 188.7 msec MV Bean. Peak: Aortic Valve Peak Velocity: 1.45 m/s Mean Velocity: 0.96 m/s Peak Gradient: 8.41 mmHg Mean Gradient: 4.17 mmHg AV Area (continuity): 3.79 cm^2 AV VTI: 24.19 cm AV DVI: 1.14 LVOT Peak Velocity: 1.46 m/sPeak Gradient: 8.51 mmHg Mean Velocity: 1 m/s Mean Gradient: 4.52 mmHg LVOT Diameter:2.06 cm LVOT VTI: 27.5 cm LVOT Area: 3.33 cm^2 LVOT SV:91.61 ml LVOT CO:8.98 l/min LVOT CI: 4.7 l/min/m^2CH[facility] HospitalRAD, [facility]ST, 1 VIEW, NON [id number] 15:43:00Reason for exam:->SOBShould this be performed at the bedside?->Yes [facility] 1950 Sex: FFINAL REPORT INDICATION: SOB COMPARISON: None TECHNIQUE: Single frontal view of the chest. FINDINGS: Lungs and pleura: Clear lungs. No effusion.Heart and mediastinum: Normal heart size. Unremarkable mediastinal contours.Osseous structures: No acute abnormality.Other: None. IMPRESSION: No acute intrathoracic abnormality. Signed: JR Ahmadi Robert MDReport Verified Date/Time: 05/07/2020 15:43:48 Reading Location: [address] Neuro Reading Room XR chest 1 view portable / [id number] 15:43:00Interface, External Ris In - 05/07/2020 3:46 PM CDTFINAL REPORT INDICATION: SOB COMPARISON: None TECHNIQUE: Single frontal view of the chest. FINDINGS: Lungs and pleura: Clear lungs. No effusion.Heart and mediastinum: Normal heart size. Unremarkable mediastinal contours.Osseousstructures: No acute abnormality.Other: None. IMPRESSION: No acute intrathoracic abnormality. Signed : JR Ahmadi Robert MDReport Verified Date/Time: 05/07/2020 15:43:48 Reading Location: [address] Neuro Reading Room [facility] HospitalECG 12 [id number] 10:48:32Interface, External Ris In - 05/07/2020 10:48 AM CDTVentricular Rate 98 BPMAtrial Rate 98 BPMP-R Interval 140 msQRS Duration 84 msQ-T Interval 378 msQTC Calculation(Sandy) 482 msP [place] 60 degreesR [place] 29 degreesT [place] 28 degreesNormal sinus rhythmNormal ECGNo previous ECGs availableConfirmed by MD Ana, Chasidy ([id number]) on 05/07/2020 10:48:30 [facility] HospitalCBC W/PLT COUNT & AUTO [id number] 10:05:00 Test Item Value Reference Range Interpretation Comments WHITE BLOOD CELL COUNT (BEAKER) 21.6 K/ L 3.5-10.5 H (test code = 775) RED BLOOD CELL COUNT (BEAKER) 3.68 M/ L 3.93-5.22 L (test code = 761) HEMOGLOBIN (BEAKER) (test code = 11.4 GM/DL 11.2-15.7 410) HEMATOCRIT (BEAKER) (test code = 35.0 % 34.1-44.9 411) MEAN CORPUSCULAR VOLUME (BEAKER) 95.1 fL 79.4-94.8 H (test code = 753) MEAN CORPUSCULAR HEMOGLOBIN 31.0 pg 25.6-32.2 (BEAKER) (test code = 751) MEAN CORPUSCULAR HEMOGLOBIN CONC 32.6 GM/DL 32.2-35.5 (BEAKER) (test code = 752) RED CELL DISTRIBUTION WIDTH 14.0 % 11.7-14.4 (BEAKER) (test code = 412) PLATELET COUNT (BEAKER) (test 170 K/CU MM 150-450 code = 756) MEAN PLATELET VOLUME (BEAKER) 11.3 fL 9.4-12.3 (test code = 754) NUCLEATED RED BLOOD CELLS 0 /100 WBC 0-0 (BEAKER) (test code = 413) (CELLAVISION MANUAL DIFF)2020-05-07 10:05:00 Test Item Value Reference Range Interpretation Comments NEUTROPHILS - REL 69 % (CELLAVISION)(BEAKER) (test code = 2816) LYMPHOCYTES - REL 20 % (CELLAVISION)(BEAKER) (test code = 2817) MONOCYTES - REL 9 % (CELLAVISION)(BEAKER) (test code = 2818) BASOPHILS - REL 1 % (CELLAVISION)(BEAKER) (test code = 2820) BANDS - REL (CELLAVISION)(BEAKER) 1 % 0-10 (test code = 2826) NEUTROPHILS - ABS 14.90 K/ul 1.56-6.13 H (CELLAVISION)(BEAKER) (test code = 2830) LYMPHOCYTES - ABS 4.32 K/ul 1.18-3.74 H (CELLAVISION)(BEAKER) (test code = 2831) MONOCYTES - ABS 1.94 K/uL 0.24-0.36 H (CELLAVISION)(BEAKER) (test code = 2832) BASOPHILS - ABS 0.22 K/uL 0.01-0.08 H (CELLAVISION)(BEAKER) (test code = 2835) BANDS - ABS (CELLAVISION)(BEAKER) 0.22 K/uL 0.00-0.80 (test code = 2840) TOTAL COUNTED (BEAKER) (test code 100 = 1351) RBC MORPHOLOGY (BEAKER) (test code Normal = 762) WBC MORPHOLOGY (BEAKER) (test code Normal = 487) PLT MORPHOLOGY (BEAKER) (test code Normal = 486) ARTIFACT (CELLAVISION)(BEAKER) Present (test code = 3432) PLATELET CONCENTRATION Adequate (CELLAVISION)(BEAKER) (test code = 3438) [facility] Coordinator ID - Juanis OverholtUser comments: Slide comments:COMPREHENSIVE METABOLIC [id number] 05:39:00 Test Item Value Reference Range Interpretation Comments TOTAL PROTEIN 5.4 gm/dL 6.0-8.3 L Specimen sligh tly (BEAKER) (test code = hemoly zed 770) ALBUMIN (BEAKER) 2.9 g/dL 3.5-5.0 L Specimen sl ightly (test code = 1145) hemolyzed ALKALINE PHOSPHATASE 95 U/L 40-150 (BEAKER) (test code = 346) BILIRUBIN TOTAL 0.8 mg/dL 0.2-1.2 Specimen sli ghtly (BEAKER) (test code = hemoly zed 377) SODIUM (BEAKER) (test 136 meq/L 136-145 code = 381) POTASSIUM (BEAKER) 3.4 meq/L 3.5-5.1 L Specimen slightly (test code = 379) hemolyzed CHLORIDE (BEAKER) 102 meq/L 98-107 (test code = 382) CO2 (BEAKER) (test 25 meq/L 22-29 code = 355) BLOOD UREA NITROGEN 13 mg/dL 7-21 (BEAKER) (test code = 354) CREATININE (BEAKER) 0.75 mg/dL 0.57-1.25 Specimen slightly (test code = 358) hemolyzed GLUCOSE RANDOM 83 mg/dL 70-105 (BEAKER) (test code = 652) CALCIUM (BEAKER) 8.5 mg/dL 8.4-10.2 (test code = 697) AST (SGOT) (BEAKER) 31 U/L 5-34 Specimen slightly (test code = 353) hemolyzed ALT (SGPT) (BEAKER) 29 U/L 6-55 Specimen slightly (test code = 347) hemolyzed EGFR (BEAKER) (test 77 mL/min/1.73 ESTIMA HERBIE GFR IS code = 1092) sq m NOT ACCURATE CREATININE CLEARANCE IN PREDICTING GLOMERULAR FILTRATION RATE . ESTIMATED GFR I S NOT APPLICABLE FOR DIALYSIS PATIEN TS. [facility] Coordinator ID - DBSARS-COV2/RT-PCR ([facility])2020-05-07 01:28:00 Test Item Value Reference Range Interpretation Comments SARS-COV2/RT-PCR (test Negative Not Detected, Negative, code = 8709258) See external report for linked test SARS-COV-[address] [facility] (test code = 2639569) Negative result for this test determines that SARS-CoV-2 RNA was not present in the specimen above the Limit of Detection (LOD). However, Negative results do not preclude SARS-CoV-2 infection and should not be used as the sole basis for treatment or patient management decisions. Negative results mustbe combined with clinical observations, patient history, and epidemiological information. A false negative result may occur if a specimen is improperly collected, transported or handled. A false negative result should be considered if patient's recent exposures or clinical presentation indicate that COVID-19 (SARS-CoV-2) is likely and diagnostic tests for other causes of illness are negative. Re-testing should be considered in cases of suspected false negatives.The limit of detection for this assay is 100 copies/mL.This SARS CoV-2 test is a real-time RT-PCR test intended for the qualitative detection of nucleic acid from SARS-CoV-2 in a nasopharyngeal swab specimen collected from individuals suspected of COVID-19 by their healthcare provider.This test has not been Food and Drug Administration (FDA) cleared or approved. This is a modified version of an approved Emergency Use Authorization (EUA) and is in the process of review by the FDA. Once authorized by the FDA, the issued EUA will be effective until the declaration that circumstances exist justifying the authorization of the emergency use of in vitro diagnostic tests for detection and/or diagnosis of COVID-19 is terminated under Section 564(b)(2) of the Act or the EUA is revoked under Section 564(g) of the Act.Testing was performed using the Ramos SARS-CoV-2 assay.Fact Sheet for Healthcare Providers:https://www.molecular.ramos/erma/ SV_MVLY-McM-0_QSX_Yznu_Ghnmw_87-609339.pdfFact Sheet for Healthcare Patients:https://www.molecular.ab dawit/erma/PC_ZIAV-OaS-3_Xvkhsnr_Vdso_Taivn_HZ_58-285974Q7.pdfPerforming Laboratory:[facility] [place] [address] [id number] 13:03:00 Test Item Value Reference Range Interpretation Comments Ferritin (test code = 232.07 ng/mL 5-275 2276-4) KAYLA (test code = KAYLA) [facility] Coordinator ID - RM Lab Interpretation (test Normal code = 14054-3) [facility] Test Item Value Reference Range Interpretation Comments FERRITIN (BEAKER) (test code = 232.07 ng/mL 5.00-275.00 361) [facility] Coordinator ID - RMIron, TIBC, % sat. (without ferritin)2020-05-06 12:42:00 Test Item Value Reference Range Interpretation Comments Iron (test code = 2498-4) 71.0 ug/dL 40-160 TIBC (test code = 2500-7) 184 ug/dL 250-450 L Iron % Saturation (test code 39 % 20-55 = 2502-3) KAYLA (test code = KAYLA) [facility] Coordinator ID - RM Lab Interpretation (test Abnormal code = 13599-7) [facility], % SAT. (WITHOUT FERRITIN)2020-05-06 12:42:00 Test Item Value Reference Range Interpretation Comments IRON (BEAKER) (test code = 547) 71.0 ug/dL 40.0-160.0 TOTAL IRON BINDING CAPACITY 184 ug/dL 250-450 L (BEAKER) (test code = 769) IRON % SATURATION (2) (BEAKER) 39 % 20-55 (test code = 2590) [facility] Coordinator ID - [id number] 12:26:00 Test Item Value Reference Range Interpretation Comments RPR (test code = 22724-9) Nonreactive Nonreactive Lab Interpretation (test code = Normal 60815-5) [facility] 12:26:00 Test Item Value Reference Range Interpretation Comments RPR SCREEN (BEAKER) (test code = Nonreactive Nonreactive 420) (CELLAVISION MANUAL DIFF)2020-05-06 10:22:00 Test Item Value Reference Range Interpretation Comments NEUTROPHILS - REL 80 % (CELLAVISION)(BEAKER) (test code = 2816) LYMPHOCYTES - REL 13 % (CELLAVISION)(BEAKER) (test code = 2817) MONOCYTES - REL 7 % (CELLAVISION)(BEAKER) (test code = 2818) NEUTROPHILS - ABS 20.72 K/ul 1.56-6.13 H (CELLAVISION)(BEAKER) (test code = 2830) LYMPHOCYTES - ABS 3.37 K/ul 1.18-3.74 (CELLAVISION)(BEAKER) (test code = 2831) MONOCYTES - ABS 1.81 K/uL 0.24-0.36 H (CELLAVISION)(BEAKER) (test code = 2832) TOTAL COUNTED (BEAKER) (test code 100 = 1351) RBC MORPHOLOGY (BEAKER) (test code Normal = 762) WBC MORPHOLOGY (BEAKER) (test code Normal = 487) PLT MORPHOLOGY (BEAKER) (test code Normal = 486) ARTIFACT (CELLAVISION)(BEAKER) Present (test code = 3432) PLATELET CONCENTRATION Adequate (CELLAVISION)(BEAKER) (test code = 3438) [facility] Coordinator ID - Zaria Ernandez comments: Slide comments:CBC W/PLT COUNT & AUTO [id number] 10:22:00 Test Item Value Reference Range Interpretation Comments WHITE BLOOD CELL COUNT (BEAKER) 25.9 K/ L 3.5-10.5 H (test code = 775) RED BLOOD CELL COUNT (BEAKER) 3.86 M/ L 3.93-5.22 L (test code = 761) HEMOGLOBIN (BEAKER) (test code = 12.2 GM/DL 11.2-15.7 410) HEMATOCRIT (BEAKER) (test code = 36.7 % 34.1-44.9 411) MEAN CORPUSCULAR VOLUME (BEAKER) 95.1 fL 79.4-94.8 H (test code = 753) MEAN CORPUSCULAR HEMOGLOBIN 31.6 pg 25.6-32.2 (BEAKER) (test code = 751) MEAN CORPUSCULAR HEMOGLOBIN CONC 33.2 GM/DL 32.2-35.5 (BEAKER) (test code = 752) RED CELL DISTRIBUTION WIDTH 14.1 % 11.7-14.4 (BEAKER) (test code = 412) PLATELET COUNT (BEAKER) (test 209 K/CU MM 150-450 code = 756) MEAN PLATELET VOLUME (BEAKER) 11.6 fL 9.4-12.3 (test code = 754) NUCLEATED RED BLOOD CELLS 0 /100 WBC 0-0 (BEAKER) (test code = 413) Hemoglobin [id number] 09:13:00 Test Item Value Reference Range Interpretation Comments Hemoglobin A1C (test code = 4548-4) 6.1 % 4.3-6.1 Lab Interpretation (test code = Normal 67541-2) [facility] [id number] 09:13:00 Test Item Value Reference Range Interpretation Comments HEMOGLOBIN A1C (BEAKER) (test code = 6.1 % 4.3-6.1 368) TSH/Free T4 If [id number] 08:03:00 Test Item Value Reference Range Interpretation Comments TSH (test code = 2.042 See_Comment [Automated 00474-0) message] The system which generated this result transmit herbie reference range : 0.350 - 4.940 uIU/mL. The reference range was not used to interpret this result as normal/abnormal . KAYLA (test code = KAYLA) [facility] Coordinator ID - EDASI Lab Interpretation Normal (test code = 28284-2) [facility] Center[facility]itamin B12 and [id number] 08:03:00 Test Item Value Reference Range Interpretation Comments Vitamin B12 (test 161 pg/mL 213-816 L code = 2132-9) Folate (test code = 5.10 ng/mL See_Comment L [Automa herbie 2284-8) message] The system which generated this result transmit herbie reference range : >=7.00. The reference range was not used to interpret this result as normal/abnormal . KAYLA (test code = KAYLA) [facility] Coordinator ID - EDASI Lab Interpretation Abnormal (test code = 64978-6) [facility] T4 IF [id number] 08:03:00 Test Item Value Reference Range Interpretation Comments THYROID STIMULATING HORMONE 2.042 uIU/mL 0.350-4.940 (BEAKER) (test code = 772) [facility] Coordinator ID - EDASIVITAMIN B12 AND [id number] 08:03:00 Test Item Value Reference Range Interpretation Comments VITAMIN B12 (BEAKER) 161 pg/mL 213-816 L (test code = 774) FOLATE (BEAKER) 5.10 ng/mL See_Comment L [Automated message] (test code = 362) The system which generated this result transmitted ref erence range: >=7.00. The reference range was not used to interpr et this result as normal/abnormal . [facility] Coordinator ID - EDASICOMPREHENSIVE METABOLIC [id number] 07:38:00 Test Item Value Reference Range Interpretation Comments TOTAL PROTEIN 5.4 gm/dL 6.0-8.3 L Specimen sligh tly (BEAKER) (test code = hemoly zed 770) ALBUMIN (BEAKER) 2.9 g/dL 3.5-5.0 L Specimen sl ightly (test code = 1145) hemolyzed ALKALINE PHOSPHATASE 99 U/L 40-150 (BEAKER) (test code = 346) BILIRUBIN TOTAL 0.7 mg/dL 0.2-1.2 Specimen sli ghtly (BEAKER) (test code = hemoly zed 377) SODIUM (BEAKER) (test 136 meq/L 136-145 code = 381) POTASSIUM (BEAKER) 3.5 meq/L 3.5-5.1 Specimen slightly (test code = 379) hemolyzed CHLORIDE (BEAKER) 103 meq/L 98-107 (test code = 382) CO2 (BEAKER) (test 27 meq/L 22-29 code = 355) BLOOD UREA NITROGEN 20 mg/dL 7-21 (BEAKER) (test code = 354) CREATININE (BEAKER) 0.74 mg/dL 0.57-1.25 Specimen slightly (test code = 358) hemolyzed GLUCOSE RANDOM 104 mg/dL 70-105 (BEAKER) (test code = 652) CALCIUM (BEAKER) 8.2 mg/dL 8.4-10.2 L (test code = 697) AST (SGOT) (BEAKER) 30 U/L 5-34 Specimen slightly (test code = 353) hemolyzed ALT (SGPT) (BEAKER) 33 U/L 6-55 Specimen slightly (test code = 347) hemolyzed EGFR (BEAKER) (test INSUFFIC IENT CLINICAL code = 1092) DATA TO CALCULA TE ESTIMATED GFR. [facility] Coordinator ID - RIK Annid [id number] 07:31:00 Test Item Value Reference Range Interpretation Comments Triglycerides (test 82 mg/dL Specimen code = 2571-8) slightly hemolyzed Cholesterol (test 117 mg/dL Specimen code = 2093-3) slightly hemolyzed HDL (test code = 36 mg/dL 5-9) LDL Calculated (test 65 mg/dL code = 06677-1) KAYLA (test code = Triglyceride KAYLA) Reference Range: Low Risk <150 Borderline 150-199 High Risk 200-499 Very High Risk >=500 Cholesterol Reference Range: Low Risk <200 Borderline 200-239 High Risk >240 HDL Cholesterol Reference Range: Low Risk >=60 High Risk <40 LDL Cholesterol Reference Range: Optimal <100 Near Optimal 100-129 Borderline 130-159 High 160-189 Very High >=190 [facility] Coord[facility] - RIK [facility]Reactive [id number] 07:31:00 Test Item Value Reference Range Interpretation Comments CRP (test code = 676) 2.02 mg/dL 0-0.5 H KAYLA (test code = KAYLA) [facility] Coordinator ID - RIK [facility]on Lab Interpretation (test Abnormal code = 23357-0) [facility] CenterLIPID [id number] 07:31:00 Test Item Value Reference Range Interpretation Comments TRIGLYCERIDES (BEAKER) 82 mg/dL Speci men slightly (test code = 540) hemolyzed CHOLESTEROL (BEAKER) 117 mg/dL Specime n slightly (test code = 631) hemolyzed HDL CHOLESTEROL (BEAKER) 36 mg/dL (test code = 976) LDL CHOLESTEROL 65 mg/dL CALCULATED (BEAKER) (test code = 633) Triglyceride Reference Range: Low Risk <150 Borderline 150-199 High Risk 200-499 Very High Risk >=500Cholesterol Reference Range: Low Risk <200 Borderline 200-239 High Risk >240HDL Cholesterol Reference Range: Low Risk >=60 High Risk <40LDL Cholesterol Reference Range: Optimal <100 Near Optimal 100-129 Borderline 130-159 High 160-189 Very High >=190 [facility] Coordinator ID - RIKLC-REACTIVE [id number] 07:31:00 Test Item Value Reference Range Interpretation Comments C-REACTIVE PROTEIN (BEAKER) (test 2.02 mg/dL 0.00-0.50 H code = 676) [facility] Coordinator ID - IRK LProthrombin time/[id number] 07:28:00 Test Item Value Reference Interpretation Comments Range Protime (test code = 13.9 See_Comment [Autom ated 5902-2) message] The system which generated this result transmitted reference range : 11.9 - 14.2 seconds. The reference range was not used to interpret this result as normal/abnormal . INR (test code = 1.10 See_Comment [Automated 4360-6) message] The system which generated this result transmitted reference range : <=5.90. The reference range was not used to interpret this result as normal/abnormal . KAYLA (test code = Effective 07/09/2018: KAYLA) PT Reference Range ChangeNew: 11.9-14.2 Previous: 11.7-14.7 RECOMMENDED COUMADIN/WARFARIN INR THERAPY RANGESSTANDARD DOSE: 2.0-3.0 Includes: PROPHYLAXIS for venous thrombosis, systemic embolization; TREATMENT for venous thrombosis and/or pulmonary embolus.HIGH RISK: Target INR is 2.5-3.5 for patients wiht mechanical heart valves. Lab Interpretation Normal (test code = 56233-7) [facility] CenterPROTHROMBIN [facility]/[id number] 07:28:00 Test Item Value Reference Range Interpretation Comments PROTIME (BEAKER) 13.9 seconds 11.9-14.2 (test code = 759) INR (BEAKER) (test 1.10 See_Comment [Automat ed message] code = 370) The system [employer] generated this result transmitted ref erence range: <=5.90. The reference range was not used to int erpret this result as normal/abnormal . Effective 07/09/2018: PT Reference Range ChangeNew: 11.9-14.2 Previous: 11.7- 14.7RECOMMENDED COUMADIN/WARFARIN INR THERAPY RANGESSTANDARD DOSE: 2.0-3.0 Includes: PROPHYLAXIS for venous thrombosis, systemic embolization; TREATMENT for venous thrombosis and/or pulmonary embolus.HIGH RISK: Target INR is2.5-3.5 for patients wiht mechanical heart valves.
--- NOTE | 2020-08-13 11:18 | RAD REPORT ---
EXAM DESCRIPTION: CT - Head Brain Wo Cont - 08/13/2020 11:04 am CLINICAL HISTORY: CONFUSED Headache, drowsiness COMPARISON: Head angio dated 05/05/2020; Neck Angio dated 05/05/2020; Head C Spine Mpr Wo Con dated TECHNIQUE: All CT scans are performed using dose optimization technique as appropriate and may inclu de automated exposure control or mA/KV adjustment according to patient size. FINDINGS: No intracranial hemorrhage, hydrocephalus or extra-axial fluid collection.Gliosis is prese nt in the right frontoparietal region related to all large right-sided infarct. The paranasal sinuses and mastoids are clear. The calvarium is intact. IMPRESSION: No acute intracranial abnormality.
--- NOTE | 2020-08-13 11:23 | RAD REPORT ---
EXAM DESCRIPTION: RAD - Chest Single View - 08/13/2020 11:16 am CLINICAL HISTORY: stroke workup Chest pain. COMPARISON: <Comparisons> FINDINGS: Portable technique limits examination quality. The lungs are grossly clear. The heart is normal in size. No displaced fractures. IMPRESSION: No acute intrathoracic process suspected.
[2020-08-13 12:06] LABS: Basophils % 1.9 % (0-1.3); Hematocrit 38.8 % (36.0-45.0); Lymphocytes % 38.7 % (15.3-44.8); MPV 9.9 fL (7.6-11.3); RBC Red Blood Cell Count 4.13 M/uL (3.86-4.86)
[2020-08-13 12:20] LABS: Potassium 4.4 mmol/L (3.5-5.1)
--- NOTE | 2020-08-13 13:33 | RAD REPORT ---
EXAM DESCRIPTION: CT - Head angio - 08/13/2020 1:22 pm CLINICAL HISTORY: CONFUSED Headache, drowsiness COMPARISON: <Comparisons> TECHNIQUE: CT angiography of the head was performed with MIPs. All CT scans are performed using dose optimization technique as appropriate and may include automated exposure control or mA/KV adjustment according to patient size. FINDINGS: No evidence of aneurysm is detected. Chronically occluded intracranial right ICA noted. Antegrade flow is seen in the vertebral arteries. The vertebral arteries are codominant. The visualized dural venous sinuses are patent. IMPRESSION: Chronically occluded right intracranial ICA noted. Right-sided intracranial vasculature is supplied by adequate collateral flow via the [place].
--- NOTE | 2020-08-13 13:52 | ER ---
Nurse's Notes [facility] Name: Sherrie Kim Age: 69 yrs Sex: Female : 1950 Arrival Date: 08/13/2020 Time: 10:40 Bed 7 Private MD: Diagnosis: Confusion - resolved Presentation: 08/13 10:42 Chief complaint: Patient states: went to bed last night around 1130 and woke up this sv morning around 0930 with confusion, didn't know where she was. c/o left arm pain. 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 Coronavirus screen: Client denies travel out of the [place] in the last 14 days. At this time, the client does not indicate any symptoms associated with coronavirus-19. Ebola Screen: No symptoms or risks identified at this time. Initial Sepsis Screen: Does the patient meet any 2 criteria? HR > 90 bpm. No. Patient's initial sepsis screen is negative. Does the patient have a suspected source of infection? No. Patient's initial sepsis screen is negative. Risk Assessment: Do you want to hurt yourself or someone else? Patient reports no desire to harm self or others. Onset of symptoms was August 13, 2020. 10:42 Method Of Arrival: Ambulatory sv 10:42 Acuity: NILESH 2 sv 11:41 No acute neurological deficit is noted. Pre-hospital glucose is not applicable to this jd3 patient. Triage Assessment: 10:55 Neuro: Reports confusion upon waking up this AM. reports symptoms resolved at this jd3 time.. 11:42 The onset of the patients symptoms was August 12, 2020 at 23:00. jd3 Stroke Activation: Symptom onset > 6 hours Physician: Stroke Attending; Name: ; Notified At: ; Arrived At: Physician: Chief Stroke Resident; Name: ; Notified At: ; Arrived At: Physician: Stroke Resident; Name: ; Notified At: ; Arrived At: Physician: ED Attending; Name: Angie; Notified At: 10:50; Arrived At: 10:50 Physician: ED Resident; Name: ; Notified At: ; Arrived At: Historical: - Allergies: 10:53 Erythromycin; sv 10:53 GABAPENTIN; sv - PMHx: 10:53 GERD; High Cholesterol; sciatic pain; Cerebrovascular accident; sv - PSHx: 10:53 Cholecystectomy; tubal ligation; sv - Immunization history:: Client reports having NOT received the Covid vaccine. - Social history:: Smoking status: Patient denies any tobacco usage or history of. Patient uses alcohol, but reports only rare drinking. Screenin:40 Abuse screen: Denies threats or abuse. Nutritional screening: No deficits noted. jd3 Tuberculosis screening: No symptoms or risk factors identified. Fall Risk Fall in past 12 months (25 points). Ambulatory Aid- None/Bed Rest/Nurse Assist (0 pts). Gait- Normal/Bed Rest/Wheelchair (0 pts) Mental Status- Oriented to own ability (0 pts). Total Tello Fall Scale indicates Low Risk Score (25-44 pts). Fall prevention measures have been instituted. Side Rails Up X 2 Placed close to Nursing Station Frequent Obs/Assesments occuring. Assessment: 10:48 VAN Scoring: Arm Drift: Patients demonstrates NO arm weakness. Patient is VAN Negative. jd3 The patient has not been NPO before screening. The patient is currently on the following diet: regular The patient is alert, and able to follow commands. The patient does not exhibit slurred or garbled speech. The patient is not exhibiting difficulty speaking. The patient does not exhibit difficulty understanding words. The patient is able to swallow own secretions with no drooling or need for suction. Patient tolerated one teaspoon of water. No drooling, immediate coughing, gurgling, or clearing of the throat was noted. The patient tolerated 90mL of water. No drooling, immediate coughing, gurgling, or clearing of the throat was noted. The patient passed the bedside swallow screening. Oral medications may be given as ordered. Contact Physician for further diet orders. Provider notified of bedside swallow screening results: Adrian Adams MD. T-PA (Activase) Screening: Contraindications: Patient reports onset of signs and symptoms of stroke greater than 6 hours ago: Yes. Rapidly improving condition or minor deficit: Yes. 10:55 General: Appears in no apparent distress. comfortable, Behavior is calm, cooperative, jd3 appropriate for age. Pain: Denies pain. Neuro: Level of Consciousness is awake, alert, obeys commands, Oriented to person, place, time, situation, Speech is normal, Facial symmetry appears normal, Pupils are PERRLA, Intact pt reports confusion upon waking up this am. reports normal mentation now. reports left hand weakness due to previous stroke.. Cardiovascular: Capillary refill < 3 seconds Patient's skin is warm and dry. Rhythm is regular. Respiratory: Airway is patent Respiratory effort is even, unlabored, Respiratory pattern is regular, symmetrical, Denies cough, shortness of breath. GI: No signs and/or symptoms were reported involving the gastrointestinal system. : No signs and/or symptoms were reported regarding the genitourinary system. EENT: No signs and/or symptoms were reported regarding the EENT system. Derm: Skin is intact, Skin is dry, Skin is normal, Skin temperature is warm. Musculoskeletal: Circulation, motion, and sensation intact. Range of motion: intact in all extremities. 11:43 Reassessment: No changes from previously documented assessment. Patient and/or family jd3 updated on plan of care and expected duration. Pain level reassessed. Patient is alert, oriented x 3, equal unlabored respirations, skin warm/dry/pink. 14:26 Reassessment: Patient appears in no apparent distress at this time. No changes from jd3 previously documented assessment. Patient and/or family updated on plan of care and expected duration. Pain level reassessed. Patient is alert, oriented x 3, equal unlabored respirations, skin warm/dry/pink. Patient denies pain at this time. 15:25 Reassessment: No changes from previously documented assessment. Patient and/or family ll1 updated on plan of care and expected duration. Pain level reassessed. 16:25 Reassessment: No changes from previously documented assessment. Patient and/or family ll1 updated on plan of care and expected duration. Pain level reassessed. Patient is alert, oriented x 3, equal unlabored respirations, skin warm/dry/pink. 17:25 Reassessment: No changes from previously documented assessment. Patient and/or family ll1 updated on plan of care and expected duration. Pain level reassessed. Vital Signs: 10:42 BP 155 / 101; Pulse 114; Resp 20; Temp 97.7; Pulse Ox 98% ; Height 5 ft. 3 in. (160.02 sv cm); Pain 5/10; 11:44 Pulse 115; Resp 19 S; Pulse Ox 97% on R/A; jd3 14:27 BP 119 / 73; Pulse 91; Resp 17 S; Pulse Ox 100% on R/A; jd3 16:04 BP 111 / 76; Pulse 89; Resp 17; Pulse Ox 97% on R/A; ll1 NIH Stroke Scale Scores: 10:48 NIHSS Score: 0 jd3 ED Course: 10:40 Patient arrived in ED. ds1 10:47 Adrian Adams MD is Attending Physician. kdr 10:48 Hector Paris, LADARIUS is Primary Nurse. jd3 10:50 Triage completed. sv 10:53 Arm band placed on. sv 11:04 CT Head Brain wo Cont In Process Unspecified. EDMS 11:15 Missed attempt(s): 22 gauge in left forearm. Bleeding controlled, band aid applied, jd3 catheter tip intact. 11:16 Stroke CXR 1 View In Process Unspecified. EDMS 11:35 Missed attempt(s): 22 gauge in right hand. Bleeding controlled, band aid applied, jd3 catheter tip intact. 11:42 Patient has correct armband on for positive identification. Bed in low position. Call jd3 light in reach. Side rails up X2. lunchroom monitor on. Pulse ox on. NIBP on. 11:45 Missed attempt(s): 22 gauge in right upper arm. Bleeding controlled, band aid applied, ll1 catheter tip intact. 11:50 Inserted saline lock: 22 gauge in left antecubital area, using aseptic technique. Blood ll1 collected. 12:56 CBC with Diff Sent. sv 12:56 Basic Metabolic Panel Sent. sv 13:22 CT Head Angio In Process Unspecified. EDMS 14:27 No provider procedures requiring assistance completed. jd3 15:24 Hand Left 3 View In Process Unspecified. EDMS 16:04 IV discontinued, intact, bleeding controlled, No redness/swelling at site. Pressure ll1 dressing applied. Administered Medications: No medications were administered Point of Care Testing: Blood Glucose: 11:00 Blood Glucose: 109 mg/dL; jd3 Ranges: Outcome: 13:52 Discharge ordered by . kdr 16:05 Discharged to home ambulatory. ll1 16:05 Condition: stable 16:05 Discharge instructions given to patient, Instructed on discharge instructions, follow up and referral plans. medication usage, Demonstrated understanding of instructions, follow-up care, medications, Prescriptions given X 2. 16:05 Patient left the ED. ll1 NIH Stroke Scale - NIH Stroke Score Date: 08/13/2020 Time: 10:48 Total Score = 0 1a. Level of Consciousness (LOC) - 0(Alert) 1b. Level of Consciousness (LOC) (Month \T\ Age) - 0(Both) 1c. LOC Commands (Open \T\ Closes Eyes/Corporate Auditor) - 0(Both) 2. Best Gaze (Lateral Gaze Paresis) - 0(Normal) 3. Visual Field Loss - 0(No visual loss) 4. Facial Palsy - 0(Normal) 5a. Left Arm: Motor (10-second hold) - 0(No drift) 5b. Right Arm: Motor (10-second hold) - 0(No drift) 6a. Left Leg: Motor (5-second hold - always test supine) - 0(No drift) 6b. Right Leg: Motor (5-second hold - always test supine) - 0(No drift) 7. Limb Ataxia (finger/nose \T\ heel/mccartney - test with eyes open) - 0(Absent) 8. Sensory Loss (pinprick arms/legs/face) - 0(Normal) 9. Best Language: Aphasia (description/naming/reading) - 0(No aphasia) 10. Dysarthria (speech clarity - read or repeat words) - 0(Normal) 11. Extinction and Inattention (visual/tactile/auditory/spatial/personal) - 0(No abnormality) Initials: jd3 Signatures: Dispatcher [employer] Hailey Davenport RN RN sv Rittger, Kevin, MD MD kdr Sanford, Demi ds1 Davies, Jonathon, RN RN jd3 Lewis, Lynsay, RN RN ll1 Corrections: (The following items were deleted from the chart) 10:54 10:42 Chief complaint: Patient states: went to bed last night around 1130 and woke up this morning around 0930 with confusion, didn't know where she was. c/o left arm pain. 11:38 11:36 VAN Scoring: Arm Drift: Patients demonstrates NO arm weakness. Patient is jd3 VAN Negative. [facility] 11:38 11:36 The patient has not been NPO before screening. The patient is currently jd3 on the following diet: regular The patient is alert, and able to follow commands. The patient does not exhibit slurred or garbled speech. The patient is not exhibiting difficulty speaking. The patient does not exhibit difficulty understanding words. The patient is able to swallow own secretions with no drooling or need for suction. Patient tolerated one teaspoon of water. No drooling, immediate coughing, gurgling, or clearing of the throat was noted. The patient tolerated 90mL of water. No drooling, immediate coughing, gurgling, or clearing of the throat was noted. The patient passed the bedside swallow screening. Oral medications may be given as ordered. Contact Physician for further diet orders. Provider notified of bedside swallow screening results: Adrian Adams MD j 11:36 T-PA (Activase) Screening: Contraindications: Patient reports onset of jd3 signs and symptoms of stroke greater than 6 hours ago: Yes. Rapidly improving condition or minor deficit: Yes. jd3 11:36 NIHSS Score: 0 j j
--- NOTE | 2020-08-13 13:52 | EDPHYS ---
Physician Documentation [facility] Name: Sherrie Kim Age: 69 yrs Sex: Female : 1950 Arrival Date: 08/13/2020 Time: 10:40 Bed 7 Private MD: ED Physician Adrian Adams HPI: 08/13 14:33 This 69 yrs old Female presents to ER via Ambulatory with complaints of kdr Confusion, Arm Pain. 14:33 The patient or guardian complains of decreased range of motion. kdr 14:35 The patient states she awoke from a nap and didn't know where she was. She claims she kdr kept telling her son that she didn't know where she was at though she was clearly in her home. She had not had this before and her symptoms slowly resolved and she had no other c/o other than pain in her left hand (boxers?) that has been present for about a month. She denies recent fall or injury. Onset: The symptoms/episode began/occurred this morning. Severity of symptoms: At their worst the symptoms were mild in the emergency department the symptoms have resolved. The patient has not experienced similar symptoms in the past. The patient has not recently seen a physician. Historical: - Allergies: 10:53 Erythromycin; sv 10:53 GABAPENTIN; sv - PMHx: 10:53 GERD; High Cholesterol; sciatic pain; Cerebrovascular accident; sv - PSHx: 10:53 Cholecystectomy; tubal ligation; sv - Immunization history:: Client reports having NOT received the Covid vaccine. - Social history:: Smoking status: Patient denies any tobacco usage or history of. Patient uses alcohol, but reports only rare drinking. ROS: 14:35 Constitutional: Negative for fever, chills, and weight loss, Eyes: Negative for injury, kdr pain, redness, and discharge, ENT: Negative for injury, pain, and discharge, Neck: Negative for injury, pain, and swelling, Cardiovascular: Negative for chest pain, palpitations, and edema, Respiratory: Negative for shortness of breath, cough, wheezing, and pleuritic chest pain, Abdomen/GI: Negative for abdominal pain, nausea, vomiting, diarrhea, and constipation, Back: Negative for injury and pain, : Negative for injury, bleeding, discharge, and swelling, MS/Extremity: Negative for injury and deformity, Skin: Negative for injury, rash, and discoloration, Psych: Negative for depression, anxiety, suicide ideation, homicidal ideation, and hallucinations, Allergy/Immunology: Negative for hives, rash, and allergies, Endocrine: Negative for neck swelling, polydipsia, polyuria, polyphagia, and marked weight changes, Hematologic/Lymphatic: Negative for swollen nodes, abnormal bleeding, and unusual bruising. 14:35 Neuro: Positive for altered mental status. Exam: 14:24 ECG was reviewed by the Attending Physician. kdr 16:30 Constitutional: This is a well developed, well nourished patient who is awake, alert, kdr and in no acute distress. Head/Face: Normocephalic, atraumatic. Eyes: Pupils equal round and reactive to light, extra-ocular motions intact. Lids and lashes normal. Conjunctiva and sclera are non-icteric and not injected. Cornea within normal limits. Periorbital areas with no swelling, redness, or edema. Neck: Trachea midline, no thyromegaly or masses palpated, and no cervical lymphadenopathy. Supple, full range of motion without nuchal rigidity, or vertebral point tenderness. No Meningismus. Chest/axilla: Normal chest wall appearance and motion. Nontender with no deformity. No lesions are appreciated. Cardiovascular: Regular rate and rhythm with a normal S1 and S2. No gallops, murmurs, or rubs. Normal PMI, no JVD. No pulse deficits. Respiratory: Lungs have equal breath sounds bilaterally, clear to auscultation and percussion. No rales, rhonchi or wheezes noted. No increased work of breathing, no retractions or nasal flaring. Abdomen/GI: Soft, non-tender, with normal bowel sounds. No distension or tympany. No guarding or rebound. No evidence of tenderness throughout. Back: No spinal tenderness. No costovertebral tenderness. Full range of motion. Skin: Warm, dry with normal turgor. Normal color with no rashes, no lesions, and no evidence of cellulitis. Neuro: Awake and alert, GCS 15, oriented to person, place, time, and situation. Cranial nerves II-XII grossly intact. Motor strength 5/5 in all extremities. Sensory grossly intact. Cerebellar exam normal. Normal gait. Psych: Awake, alert, with orientation to person, place and time. Behavior, mood, and affect are within normal limits. 16:30 Musculoskeletal/extremity: Extremities: grossly normal except: noted in the left hand: decreased ROM, pain, The patient states she has had pain for about a month in the left hand. She also has limited ROM secondary to prior CVA. She had an x-ray on the 21 of July that was read as negative . Vital Signs: 10:42 BP 155 / 101; Pulse 114; Resp 20; Temp 97.7; Pulse Ox 98% ; Height 5 ft. 3 in. (160.02 sv cm); Pain 5/10; 11:44 Pulse 115; Resp 19 S; Pulse Ox 97% on R/A; jd3 14:27 BP 119 / 73; Pulse 91; Resp 17 S; Pulse Ox 100% on R/A; jd3 16:04 BP 111 / 76; Pulse 89; Resp 17; Pulse Ox 97% on R/A; ll1 NIH Stroke Scale Scores: 10:48 NIHSS Score: 0 jd3 MDM: 13:52 Patient medically screened. kdr 16:30 Data reviewed: vital signs, nurses notes, lab test result(s), EKG. Counseling: I had a kdr detailed discussion with the patient and/or guardian regarding: the historical points, exam findings, and any diagnostic results supporting the discharge/admit diagnosis, lab results, radiology results, the need for outpatient follow up. Response to treatment: the patient's symptoms have markedly improved after treatment, the patient's condition has returned to base line. 08/13 10:48 Order name: Basic Metabolic Panel 08/13 10:48 Order name: CBC with Diff 08/13 10:48 Order name: Basic Metabolic Panel; Complete Time: 12:27 EDUT 08/13 10:49 Order name: CBC with Automated Diff; Complete Time: 12:27 EDMS 08/13 10:47 Order name: CT Head Brain wo Cont; Complete Time: 12:27 08/13 10:48 Order name: Stroke CXR 1 View; Complete Time: 12:27 08/13 11:09 Order name: Glucose, Ancillary Testing; Complete Time: 12:27 EDMS 08/13 12:56 Order name: CT Head Angio; Complete Time: 13:35 kdr 08/13 15:33 Order name: Urine Dipstick-Ancillary; Complete Time: 16:08 EDMS 08/13 15:33 Order name: Urine Microscopic Only ll1 08/13 15:33 Order name: Urine Microscopic Only; Complete Time: 16:08 EDMS 08/13 15:52 Order name: Urine Culture EDUT 08/13 10:48 Order name: EKG; Complete Time: 10:49 sv 08/13 10:48 Order name: Accucheck; Complete Time: 11:03 sv 08/13 10:48 Order name: Cardiac monitoring; Complete Time: 11:00 sv 08/13 10:48 Order name: EKG - Nurse/Tech; Complete Time: 11:00 sv 08/13 10:48 Order name: IV Saline Lock; Complete Time: 16:05 sv 08/13 10:48 Order name: Labs collected and sent; Complete Time: 16:05 sv 08/13 10:48 Order name: NPO; Complete Time: 11:00 sv 08/13 10:48 Order name: O2 Per Protocol; Complete Time: 11:00 sv 08/13 10:48 Order name: O2 Sat Monitoring; Complete Time: 11:00 sv 08/13 10:48 Order name: Stroke Swallow Screen; Complete Time: 11:36 sv 08/13 10:59 Order name: Urine Dipstick-Ancillary (obtain specimen); Complete Time: 16:05 kdr 08/13 12:12 Order name: Labs - recollect needed: recollect blue top / short; Complete Time: 14:27 eb 08/13 15:23 Order name: Hand Left 3 View; Complete Time: 16:08 EDMS EC:24 Rate is 101 beats/min. Rhythm is regular, Sinus tachycardia with No ectopy. QRS Corrigan is kdr Normal. MD interval is normal. QRS interval is normal. Clinical impression: NSR w/ Non-specific ST/T Changes. Administered Medications: No medications were administered Point of Care Testing: Blood Glucose: 11:00 Blood Glucose: 109 mg/dL; jd3 Ranges: Critical Glucose Levels:Adult <50 mg/dl or >400 mg/dl <40 mg/dl or >180 mg/dl Disposition Summary: 08/13/20 13:52 Discharge Ordered Location: Home kdr Problem: new kdr Symptoms: are resolved kdr Condition: Stable kdr Diagnosis - Confusion - resolved kdr Followup: kdr - With: Private Physician - When: 2 - 3 days - Reason: If symptoms return, Further diagnostic work-up, Recheck today's complaints, Continuance of care, Re-evaluation by your physician Discharge Instructions: - Discharge Summary Sheet kdr - Confusion kdr - Urinary Tract Infection, Adult, [id number] kdr Forms: - Medication Reconciliation Form kdr - Thank You Letter kdr Prescriptions: - Bactrim DS 800-160 mg Oral Tablet - take 1 tablet by ORAL route every 12 hours for 10 days; 20 tablet; Refills: 0, kdr Product Selection Permitted - Tramadol 50 mg Oral Tablet - take 1 tablet by ORAL route every 8 hours as needed; 12 tablet; Refills: 0, kdr Product Selection Permitted NIH Stroke Scale - NIH Stroke Score Date: 08/13/2020 Time: 10:48 Total Score = 0 1a. Level of Consciousness (LOC) - 0(Alert) 1b. Level of Consciousness (LOC) (Month \T\ Age) - 0(Both) 1c. LOC Commands (Open \T\ Closes Eyes/Meat Carrier) - 0(Both) 2. Best Gaze (Lateral Gaze Paresis) - 0(Normal) 3. Visual Field Loss - 0(No visual loss) 4. Facial Palsy - 0(Normal) 5a. Left Arm: Motor (10-second hold) - 0(No drift) 5b. Right Arm: Motor (10-second hold) - 0(No drift) 6a. Left Leg: Motor (5-second hold - always test supine) - 0(No drift) 6b. Right Leg: Motor (5-second hold - always test supine) - 0(No drift) 7. Limb Ataxia (finger/nose \T\ heel/mccartney - test with eyes open) - 0(Absent) 8. Sensory Loss (pinprick arms/legs/face) - 0(Normal) 9. Best Language: Aphasia (description/naming/reading) - 0(No aphasia) 10. Dysarthria (speech clarity - read or repeat words) - 0(Normal) 11. Extinction and Inattention (visual/tactile/auditory/spatial/personal) - 0(No abnormality) Initials: jd3 Signatures: Dispatcher [employer] Hailey Davenport RN RN sv Rittger, Kevin, MD MD kdr Botello, Elizabeth eb Corrections: (The following items were deleted from the chart) 15:23 14:32 Hand Left 2 View+RAD.[email or web address].[email or web address] ordered. EDMS EDMS
[2020-08-13 15:33] LABS: Urine Blood Negative (Negative); Urine Glucose Negative (Negative); Urine Protein Negative (Negative)
[2020-08-13 15:50] LABS: Urine Bacteria <20 /HPF (<20); Urine RBC NONE SEEN /HPF (NONE SEEN)
--- NOTE | 2020-08-13 15:52 | RAD REPORT ---
EXAM DESCRIPTION: RAD - Hand Left 3 View - 08/13/2020 3:24 pm CLINICAL HISTORY: PAIN COMPARISON: <Comparisons> FINDINGS: The bones are mildly osteopenic. 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 No acute fracture or dislocation.
[2020-08-13 16:20] VITALS: TEMP 97.7
[2020-08-13 16:25] VITALS: BP 111/76; O2SAT 97
--- NOTE | 2020-08-14 13:47 | EKG ---
Test Date: 2020-08-13 Test Time: 10:54:54 Die Machine Operator: YOGESH MEASUREMENT RESULTS: Intervals: Rate: 101 NE: 164 QRSD: 86 QT: 372 QTc: 482 [place]: P: 64 NE: 164 QRS: 26 T: 59 INTERPRETIVE STATEMENTS: Sinus tachycardia Cannot rule out Anterior infarct, age undetermined Abnormal ECG Compared to ECG 05/05/2020 13:06:18 Myocardial infarct finding now present Atrial premature complex(es) no longer present Atrial abnormality no longer present ST (T wave) deviation no longer present Possible ischemia no longer present Electronically Signed On 08-14-20 13:45:44 CDT by Jmaes Chahal
== END 2020-08-13 16:05 | disposition home or self-care (01) ==
LOC: ER 10:40
DX: R41.82 Altered mental status, unspecified (principal); M79.642 Pain in left hand; Z86.73 Personal history of transient ischemic attack (TIA), and cerebral infarction without residual deficits; Z88.3 Allergy status to other anti-infective agents; Z88.8 Allergy status to other drugs, medicaments and biological substances
CPT/HCPCS: 93005; 87088; 85025; 87086; 80048; 36415; 82947; 70450; 70496; 71045; 73130; 99284; Q9967; 81003; 81015

== ENCOUNTER 2020-08-18 10:58 | Inpatient (IN) | payer OTHER ==
--- OUTSIDE RECORDS SUMMARY | 2020-08-18 11:35 | XMS REPORT | Continuity of Care Document ---
:1950 Author Organization [facility] t Address [address] [place] [address] Care Team Providers Name Role Phone Opal [...] Date Sour ce Number MEDICAID - MEDICAID [id number] 2019 SOLOMON Hart MGD CARESUPERIOR 00:00:00 - Medica l [id number]/ Ce nter /2019-Present [facility] - [id number] 2020 SOLOMON Hart MEDICARE MGD 00:00:00 - Medical CAREUNITED MEDICARE Cente r [id number] 2020-P resent MEDICAIDMEDICAID OF [id number] 2020 SOLOMON Hart [id number] 2020 00:00:00 - Medical -PresentMedicaid Center Problems Condition Condition Condition Status Onset Resolution Last Treating Co mments Source Name Details Category Date Date Treatment Clinician Date Leukocytos Leukocytos Disease Active [facility] - [facility]: Medical 00 [place] Diarrhea Diarrhea Disease [facility] - presumed presumed 00:00: Medica l infectious infectious 00 Ce nter origin origin Esophagiti Esophagiti Disease Active [facility] - [facility]: Medical 00 [place] Stroke Stroke Disease Active [facility] Center Allergies, Adverse Reactions, Alerts Allergy Allergy Status Severity Reaction(s) Onset Inactive Treating Comm ents Source Name Type Date Date Clinician Gabapent Propensi Active Other (See [facility] to Comments) [facility] - adverse 00:00: Medical reaction 00 [place] Social History Social Habit Start Date Stop Date Quantity Comments Source Sex Assigned At [facility] Cigarettes smoked 2020-05-09 2020-05-09 [facility] - current (pack per 00:00:00 00:00:00 [facility] day) - Reported Cigarette 2020-05-09 2020-05-09 [facility] - pack-years 00:00:00 00:00:00 [facility] Tobacco use and 2020-05-09 2020-05-09 Never used [facility] - exposure 00:00:00 00:00:00 [facility] Alcohol intake 2020-05-09 2020-05-09 Ex-drinker [facility] - 00:00:00 00:00:00 (finding) [facility] Smoking Status Start Date Stop Date Source Current every day smoker 2020-05-09 00:00:00 [facility] Medications Ordered Filled Start Stop Current Ordering [...] 40 MG 19:04: daily. Medical capsule 52 [place] atorvastati 2020- No 10mg QD Take [address] [facility] (LIPITOR) -03 17- by mouth Rashmi es - 10 MG 10:29: 00:00 daily. Medical tablet 12 :00 [place] atorvastati Yes 10mg QD Take 1 [facility] [...] Center Diastolic blood 2020-05-13 15:30:00 64 mm[Hg] [facility] Heart rate 2020-05-13 15:30:00 89 /min [facility] Body temperature 2020-05-13 15:30:00 36.44 Faye [facility] Respiratory rate 2020-05-13 15:30:00 18 /min [facility] Oxygen saturation in 2020-05-13 15:30:00 96 /min [facility] - Arterial blood by Medical Ce nter Pulse oximetry Body height 2020-05-06 00:21:00 157.5 cm [facility] Body weight 2020-05-06 00:21:00 90.719 kg [facility] BMI 2020-05-06 00:21:00 36.58 kg/m2 [facility] Procedures Procedure Date / Time Performed Performing Clinician [facility] e SARS-COV2/RT-PCR ([facility] & 2020-05-13 09:26:00 Brenna, [facility] - REF LABS) [facility] CBC W/PLT COUNT & AUTO 2020-05-13 04:52:00 Marlene, David Hebert [facility] COMPREHENSIVE METABOLIC 2020-05-13 04:52:00 Marlene, David Hebert [facility] CBC W/PLT COUNT & AUTO 2020-05-12 05:44:00 Marlene, David Hebert [facility] [place] [facility] METABOLIC 2020-05-12 05:44:00 Marlene, David Hebert [facility] CBC W/PLT COUNT & AUTO 2020-05-11 05:06:00 MarleneDavid [facility] METABOLIC 2020-05-11 05:06:00 Marlene, David Hebert [facility] HEPATITIS C PCR, 2020-05-10 16:21:00 Marlene, David Hebert [facility] HEPATITIS C GENOTYPE 2020-05-10 16:21:00 Marlene, David Hebert [facility] HEPATITIS PANEL, ACUTE 2020-05-10 05:46:00 Marleen, David Hebert [facility] CBC W/PLT COUNT & AUTO 2020-05-10 05:46:00 Marlene, David Hebert [facility] 2020-05-10 05:46:00 Marlene, David Hebert [facility] US ABDOMEN LIMITED 2020-05-09 14:42:00 Marlene, David Hebert [facility] CBC W/PLT COUNT & AUTO 2020-05-09 12:01:00 Marlene, David Hebert [facility] 2020-05-09 12:01:00 Marlene, David Hebert [facility] (CELLAVISION MANUAL DIFF) 2020-05-09 12:01:00 Marlene, David Blount rd [facility] CT BRAIN WITHOUT IV 2020-05-09 00:01:00 Guillermo Domingo [facility] REPORT OF PROCEDURE - 2020-05-08 08:50:18 Maude Varghese [facility] ENDOSCOPY [facility] TISSUE EXAM 2020-05-08 08:18:00 Maude Varghese [facility] UPPER ENDOSCOPY,BIOPSY 2020-05-08 08:00:00 Maude Varghese [facility] CBC W/PLT COUNT & AUTO 2020-05-08 04:46:00 SOLOMON Ceja [facility] 2020-05-08 04:46:[address] [facility] (CELLAVISION MANUAL DIFF) 2020-05-08 04:46:00 ANGUS Ceja [facility] CTA BRAIN 2020-05-07 18:15:00 Jack Cintron [facility] URINALYSIS W/ REFLEX 2020-05-07 17:53:00 Jack Cintron [facility] URINE CULTURE [facility] ECHO W CONTRAST & DOPPLER 2020-05-07 15:40:57 Jack Cintron [facility] XR CHEST 1 VIEW 2020-05-07 15:15:00 Jack Cintron Critical [facility] hospital[facility] BLOOD CULTURE 2020-05-07 13:38:00 Jack Cintron [facility] CBC W/PLT COUNT & AUTO 2020-05-07 04:34:[address] [facility] S t [facility] DIFFERENTIAL [facility] COMPREHENSIVE METABOLIC 2020-05-07 04:34:[address] [facility] (CELLAVISION MANUAL DIFF) 2020-05-07 04:34:00 Brenna [facility] ECG 12-LEAD 2020-05-06 15:16:23 Jack Cintron [facility] SARS-COV2/RT-PCR ([facility] & 2020-05-06 13:41:00 [facility] IRON, TIBC, % SAT. 2020-05-06 06:51:00 Colby Verduzco [facility] (WITHOUT FERRITIN) [facility] W[facility] & AUTO 2020-05-06 06:51:[address] [facility] S t [facility] (CELLAVISION MANUAL DIFF) 2020-05-06 06:51:00 Brenna [facility] COMPREHENSIVE METABOLIC 2020-05-06 06:51:[address] [facility] PROTHROMBIN TIME/INR 2020-05-06 06:51:00 [facility] LIPID PANEL 2020-05-06 06:51:00 [facility] HEMOGLOBIN A1C 2020-05-06 06:51:00 [facility] VITAMIN B12 AND FOLATE 2020-05-06 06:51:00 [facility] S [facility] RPR 2020-05-06 06:51:00 [facility] C-REACTIVE PROTEIN 2020-05-06 06:51:00 Brenna [facility] TSH/FREE T4 IF INDICATED 2020-05-06 06:51:00 Brenna [facility] PERIPHERAL BLOOD SMEAR - 2020-05-06 06:51:00 Brenna [facility] - PATHOLOGIST REVIEW [facility] FERRITIN 2020-05-06 06:51:00 Colby Verduzco [facility] Plan of Care Planned Activity Planned Date [...] - Test 00:00:00 TO MEDICARE) [code = [facility] Medicare IPPE (WELCOME TO MEDICARE)] Future Scheduled 2017 PNEUMOCOCCAL 65+ [facility] - Test 00:00:00 (1 of 1 - Medical Center [id number] PCV13) [code = PNEUMOCOCCAL 65+ YRS (1 of 1 - [id number] PCV13)] Future Scheduled 2002 SHINGLES VACCINES (1 [...] Medica l Center breast (procedure) [code = 031225687] Future Scheduled [address] - Test 00:00:00 malignant neoplasm of Medica l Center colon (procedure) [code = 449856532] Results Test Description Test Time Test Comments Results Result Comments Source Hepatitis C genotype 2020-05-16 09:09:00 Test Item Value Reference Range Interpretation Comme nts HCV Genotype, 1a The method us ed in this test is RT-PCR and LiPA (test code = reversehyb ridization (Line Probe) of the 5' 2129320) UTR and corereg ion of the HCV genome. The analytical perf ormance characteristics of thisassay have been determined by [facility]. The modifications h ave not beencleared or approved by the FDA. Thi s assay has beenvalidated pursuant to the CLIA regulations and isused for clinical pu rposes. For additional information, pl ease refer tohttp://educat ion.[employer] /faq/HCVGenotyp ing(This link id being provided for information al/educational purposes only.) KAYLA (test code = Performing Lab KAYLA) *QDID [facility] [address] [place] [address] Joseph uNno [facility] (Asymptomatic ONLY)2020-05-13 17:07:00 Test Item Value Reference Range Interpretation Comments SARS-COV2/RT-PCR Negative Not Detected, (test code = Negative, See 77549-3) external report for linked test SARS-COV-2 [facility] PERFORMING LAB (test code = 72906-4) KAYLA (test code = Negative result for [...] of the Act. Fact Sheet for Healthcare Providers:https://www.[employer]/sites/default/f paxton/product/documents/F act_Sheet_HC_Providers_L ocm_HQDD-VfM-1.pdf Fact Sheet for Healthcare Patients:https://www.[employer]/sites/default/fi les/product/documents/Fa ct_Sheet_Patients_Lyra_S ARS-CoV-2.pdf Performing Laboratory:[facility], [place] [address] [place], [place] [address]ARS-COV2/RT-PCR ([facility] & REF LABS)2020-05-13 17:07:00 Test Item Value Reference Range Interpretation Comments SARS-COV2/RT-PCR (test Negative Not Detected, Negative, code = 3931528) See external report for linked test SARS-COV-[address] [facility] JOSUE (test code = 6921833) Negative result for this test determines that [...] 564(g) of the Act.Fact Sheet for Healthcare Providers:https://www.[employer]/sites/default/files/product/documents/Fact_Shee w_JT_Zyiysslpy_Wwoc_KYCM-NzB-1.pdfFact Sheet for Healthcare Patients:https://www.[employer]/sites/default/files/product/ documents/Okbd_Dgcmg_Lwiqomdz_Erty_MJFY-LrV-1.pdfPerforming Laboratory:[facility], [place] [address]Ncuzeulebsreq metabolic [id number] 05:41:00 Test Item Value Reference Range Interpretation Comments Protein, Total (test 6.1 See_Comment [Autom ated code = 2885-2) message] The system which generated this result transmit herbie reference range : 6.0 - 8.3 gm/dL . The reference range was not u sed to interpret th is result as normal/abnormal . Albumin (test code = 3.1 g/dL 3.5-5 L 60933-2) Alkaline Phosphatase 98 U/L 40-150 (test code = 6768-6) Total Bilirubin (test 0.4 mg/dL 0.2-1.2 code = 1975-2) Sodium (test code = 138 meq/L 740-481 3028-2) Potassium (test code 3.7 meq/L 3.5-5.1 = 2823-3) Chloride (test code = 102 meq/L 98-107 5-0) CO2 (test code = 27 meq/L 22-29 2027-9) BUN (test code = 10 mg/dL 7-21 3094-0) Creatinine (test code 0.71 mg/dL 0.57-1.25 = 2160-0) Glucose (test code = 113 mg/dL 70-105 H 2345-7) Calcium (test code = 8.8 mg/dL 8.4-10.2 70892-5) AST (test code = 36 U/L 5-34 H 1920-8) ALT (test code = 29 U/L 6-55 1742-6) EGFR (test code = 82 mL/min/1.73 [place] [address]-3) NOT ACCURATE CREATININE CLEARANCE IN PREDICTING GLOMERULAR FILTRATION RATE . ESTIMATED GFR I S NOT APPLICABLE FOR DIALYSIS PATIEN TS. KAYLA (test code = KAYLA) Business Machine Operator ID - EDASI Lab Interpretation Abnormal (test code = 21086-3) [facility] with platelet count + automated [id number] 05:41:00 Test Item Value Reference Range Interpretation Comments WBC (test code = 6690-2) 15.2 See_Comment H [A utomated message] The system [employer] generated this result transmitted ref erence range: 3.5 - 10 .5 K/L. The refe rence range was not u sed to interpret this result as normal/abnor mal. RBC (test code = 789-8) 3.68 See_Comment L [Au tomated message] The system [employer] generated this result transmitted ref erence range: 3.93 - 5 .22 M/L. The refe rence range was not u sed to interpret this result as normal/abnor mal. MCHC (test code = 786-4) 33.0 See_Comment [A utomated message] The system [employer] generated this result transmitted ref erence range: [...] See_Comment [Aut omated message] 777-3) The system [employer] generated this result transmitted ref erence range: 150 - 45 0 K/CU MM. The referen ce range was not u sed to interpret this result as normal/abnor mal. MPV (test code = 11.9 fL 9.4-12.3 08850-9) nRBC (test code = 413) 0 See_Comment [Aut omated message] The system [employer] generated this result transmitted ref erence range: [...] H [Aut omated message] 670) The system [employer] generated this result transmitted ref erence range: 1.56 - 6 .13 K/L. The refe rence range was not u sed to interpret this result as normal/abnor mal. # Lymphs (test code = 4.78 See_Comment H [Auto mated message] 414) The system [employer] generated this result transmitted ref erence range: 1.18 - 3 .74 K/L. The refe rence range was not u sed to interpret this result as normal/abnor mal. # Monos (test code = 1.19 See_Comment H [Autom ated message] 415) The system [employer] generated this result transmitted ref erence range: 0.24 - 0 .36 K/L. The refe rence range was not u sed to interpret this result as normal/abnor mal. # Eos (test code = 416) 0.12 See_Comment [Au tomated message] The system [employer] generated this result transmitted ref erence range: 0.04 - 0 .36 K/L. The refe rence range was not u sed to interpret this result as normal/abnor mal. # Baso (test code = 417) 0.03 See_Comment [A utomated message] The system [employer] generated this result transmitted ref erence range: 0.01 - 0 .08 K/L. The refe rence range was not u sed to interpret this result as normal/abnor mal. Immature 0 % 0-1 Granulocytes-Relative (test code = 2801) Lab Interpretation (test Abnormal code = 10977-8) [facility] W/PLT COUNT & AUTO [id number] 05:41:00 Test Item Value Reference Range Interpretation [...] (BEAKER) (test code = 2801) COMPREHENSIVE METABOLIC [id number] 05:41:00 Test Item Value Reference Range Interpretation [...] S NOT APPLICABLE FOR DIALYSIS PATIEN TS. Business Machine Operator ID - EDASIBlood Culture - Routine (Right Venipuncture)2020-05-12 16:02:00 Test Item Value Reference Range Interpretation Comments Result (test code = No growth in 5 days 6463-4) [facility] [id number] 16:02:00 Test Item Value Reference Range Interpretation Comments CULTURE (BEAKER) (test No growth in 5 days code = 1095) COMPREHENSIVE METABOLIC [id number] 08:07:00 Test Item Value Reference Range Interpretation [...] S NOT APPLICABLE FOR DIALYSIS PATIEN TS. Business Machine Operator ID - PIAYA LCBC W/PLT COUNT & AUTO [id number] 06:56:00 Test Item Value Reference Range Interpretation [...] (test code = 2801) Hepatitis C PCR, [id number] 21:55:00 Test Item Value Reference Range Interpretation Comments HCV PCR, Quantitative [id number] See_Comment H [Auto mated (test code = 10704-2) messag e] The system which generated this result transmitted reference range : <15 IU/mL. The reference range was not used to interpret this result as normal/abnormal . KAYLA (test code = KAYLA) This test uses a Real-Time Polymerase Chain Reaction (RT-PCR) methodology and was performed using MONICA Ampliprep/MONICA TaqMan HCV test kit version 2.0 ([employer]). Reportable range for this assay is 15 - 100,000,000 IU per mL (1.18 - 8.00 Log IU/mL). Lab Interpretation Abnormal (test code = 01795-0) [facility], [id number] 21:55:00 Test Item Value Reference Range Interpretation Comments HCV NUMERIC RESULT (BEAKER) [id number] IU/mL <15 H (test code = 2700) This test uses a Real-Time Polymerase Chain Reaction (RT-PCR) methodology and was performed using MONICA Ampliprep/MONICA TaqMan HCV test kit version 2.0 ([employer]ibel DrAvailable Systems, [employer]).Reportable range for this assay is 15 - 100,000,000 IU per mL (1.18 - 8.00 Log IU/mL).CBC W/PLT COUNT & AUTO [id number] 06:02:00 Test Item Value Reference Range Interpretation [...] (BEAKER) (test code = 2801) COMPREHENSIVE METABOLIC [id number] 06:00:00 Test Item Value Reference Range Interpretation [...] S NOT APPLICABLE FOR DIALYSIS PATIEN TS. Business Machine Operator ID - MAYA BHepatitis panel, [id number] 07:46:00 Test Item Value Reference Range Interpretation Comments Hep A IgM (test code = Nonreactive Nonreactive 37510-5) Hep B C IgM (test code = Nonreactive Nonreactive 90310-3) Hepatitis C Ab (test Reactive Nonreactive A code = 21061-8) HBsAg Screen (test code Nonreactive Nonreactive = 5195-3) KAYLA (test code = KAYLA) Business Machine Operator ID - VALENCIA M Lab Interpretation (test Abnormal code = 95267-9) [facility], [id number] 07:46:00 Test Item Value Reference Range Interpretation Comments HEPATITIS A IGM ANTIBODY (BEAKER) Nonreactive Nonreactive (test code = 498) HEPATITIS B CORE IGM ANTIBODY Nonreactive Nonreactive (BEAKER) (test code = 645) HEPATITIS C ANTIBODY (BEAKER) Reactive Nonreactive A (test code = 367) HEPATITIS B SURFACE ANTIGEN (2) Nonreactive Nonreactive (BEAKER) (test code = 2585) Business Machine Operator ID - VALENCIA MCOMPREHENSIVE METABOLIC [id number] 07:17:00 Test Item Value Reference Range Interpretation [...] S NOT APPLICABLE FOR DIALYSIS PATIEN TS. Business Machine Operator ID - RIK LCBC W/PLT COUNT & AUTO [id number] 06:57:00 Test Item Value Reference Range Interpretation [...] (BEAKER) (test code = 2801) U/S, ABDOMINAL, [id number] 22:12:00Abdomen limited area? Add comment if clarification is needed.->Right upper quadrantReason for exam :->transaminitis [facility] BELLO IVAN : 1950 Sex: FFINAL REPORT [...] MDReport Verified Date/Time: 05/09/2020 22:12:28 Reading Location: [address] Reading Room US abdomen [id number] 22:12:00 Interface, External Ris In - 05/09/2020 [...] Garcia MDReport Verified Date/Time: 122:12:28 Reading Location: [address] Reading Room [facility] [id number] 16:45:00 Test Item Value Reference Range Interpretation Comments Case Report (test code Surgical Pathology = 104) Report Case: [id number] Authorizing Provider: Maude Varghese MD Collected: 05/08/2020 08:18 AM Ordering Location: [address] Received: 05/09/2020 08:27 AM Service Pathologist: Jud Werner MD Specimen: Biopsy, Gastric, random gastric bx DIAGNOSIS (test code = w5suoXJuTDEvx9qyIQVgoT 3220) FuZzEwMzNcZnRuYmpcdWMx IHtccnRmMVxlcGljOTIwMl rijkIpZKNuqNTfY6Sbkoao FZqiVF0oPI7rpPkexYOfsJ QbTSEfSsRmv6mva641lDCf j9bfEPSRrtnbkNy8pKwxV1 6yv0D9ZsqxZ50xzAFlWKsq bGFpblxmczIwIEEuIFNUT0 6IV1utAWPEPnKSCEMMBS2B D2rzaBGqIN1gMUXFYRKMEt oXGTtNOFUPWAPRKFzBF7IS SVRJUywgTUlMRFxwYXIgLS XwLI4PHGuTXUJQEQuTOQui TUVUQVBMQVNJQSwgRFlTUE yYN8dTMM9VPKFPNcXNMn0M QSBJREVOVElGSUVEXHBhci KlJZFfIi6mJEMZFLCVAzSL PYHULVUTPI6HHVJSBUtJHH 5TT1ZKCQCOAdXKPJFSIJdU LFYFXK7AIQyAQsYCEW1mV7 RBUlJZIFNUQUlOXHBhciAg ETCgbh89RVX3NnZwt4F8DY Z2JZMcUPLms7nyLKMekPLr ZzEwMzNcZnRuYmpcdWMxXG ZpUmOiq5jyx361zKBpi7op MXMqHfW9bXJwALEymQMjN7 49EXSqWJptv8cps1LyTAJm dBNcq1D9THZSuwdjhEv0mZ epE91cq6I5GswbH1mgNWOq AIKiD1XuBS5sPPVpSbx8WH K7SLV0CKPwLZHrK4KiRU6g SURkxATxYHx6u9wfjXszJP SjNKT1d9izZIwmhxWqCC9c bt3uuKs5h7khqsNpYSVrVS NyeXHLCIDsW6CwuKknTj8v sPt1cTdiLumsKPN6Oke7VQ 1drr57eey6iYncXQVcgzfs GcG6BXecLSHqnvagHTb8OH ahTLYcgIB9GCQpiGSrS7Qg SANgVT2jpod7OUI9IIqcIK WcMxT3XXCamJZmIGFchEmo BMiel771WIL5HuEpBT5dL6 Zaf8X7nP2paJNxVTWelCMj SqPiILXrft3klWIxKHnxs1 GkCTI6ubX8rQVdpVPvXVFo AuO4DCgmFI8rdp68RJEdCK Y9mq9kiGZniWxtrpGapKRf VMzmV8OcAFSzq300JUAkZ5 NeKPQfx3E5owQlQyDaJBQd yDH0zhX4MRXgWJ2osmagd1 voZFlnONhrZJOjchZ5boC9 EMJijHPbF9QnxV8wZWBkMH 1njzebk3xsROS6YWqtPPEu ODY5YmWrKFZox3Suxrh6Sz Slv5NhbNWtVUqgK95kz668 YEDzxnDsJ3acvBKpgrydbP XmscupDAubnhA7SIAxHKwi uprwKLOsTAdrU8zvMfDzCE IgtCghMKket3KqCRBcZCNl LqRdnVEjZMHzVuh9TXVbcI VpBSQwXsZpL5avoqjzKeQV QUXkj5wmG5oqjFGAdMJmK1 QgUGhvbmUgTGluZTogODMy YCZ3YN40BBlpEJPzxt07 CPT Code(s) (test code r1mmnNSsRABofDN6YnUtEW = 3357) Qmr5ebc8JyaIJkjWDmDGjk qUEqtdXirq58oAQ3gX17CA 4eTCRlKlP1YMZtfvX3Mio4 IGZbRIOruFJoF565a7dcv1 ixluPpaZJ2lUltKEOnSKBt YWluXGZzMjAgODgzMDUsID t5BsCyLIWrbj6= CLINICAL HISTORY (test t8blbVFiIZUtxHB9CqHoMT code = 3356) Eyi4avf5MnrOFjcUQyKYru yHHvfwIdrn41qSL8pZ93XO 3yQEJzAiA8LGVfcnV9Dhm1 FPTvKRDahNEbV992t2zyx4 kcozYmvST2mKimYUCjMVFv YWluXGZzMjAgZXNvcGhhZ2 MapMN5jHadu5BjnK5dHDDt cn0= SPECIMEN SOURCE (test f1ogrFHeRBTayVT2WbIbCY code = 3377) Zyb8qtn4YgcMXpnBHgAAue kXJzieKkgo83kNP0zD46MB 7xYRGxJoZ6OPVqsrW8Kth3 WATsKOPrsJZsG734y6qto0 iqtrZgzVB0aJriIHBiIGPg IZxmLDDkThAoE5QbbEQrQ1 xwYXJ9 GROSS DESCRIPTION (test s7gsxSSvALXnaQRdAoIcCQ code = 3366) IcPPRdf1wfWUQnpHXdGhTu MzNcZnRuYmpcdWMxXGRlZm Abh8dfy432yVJbb7ylZASw YxF5pHOnVEKlyRRjP207v9 rrx8dvngGxyLM5ACWwXOC7 MMxqeiYaudJ1CRtnoEGiDz U8UUberdLwUVbcqfVscaDo Sag8BSOpD585HFM4tIcua6 vgAVB1SPVwZEGfWxIyCv0k cDEeC298NBRwMPTIZYJjqR a8LSUwdmAtrmRilXQWf222 S128n5tyWNEcyhJymCcZdq zqb5hcK126YDFvvERgjpHo KbKfCCXgoKMpfER8QXWkJS 7oumvpHhVzTK5qzlbyPgBd CZ0jxqv6MoHjQP9ajvkiZe HxEPabHLLfckeyQKCgj9Ct xukzAG2pV9Ico0Z3fP6fcU FzVLGoiWJoMkDjIBRhvs7g bHFdUVnrb8UoERR0xaW0kA SmvIVjHOFzQP07Gphcl9Wi MpdcVXB4KBFrzlZkg3Smx2 urTcOesvQeS0fmS9XvFUVb DPPiWKQaRwWgdeWcc5Iuf0 AvdFZbpZl1b5vqSJGlMRZr hEdrt4bbTQQ5OYSiV3R4mJ Ghv8mpSMfkVAYxbWP9ngve LVwoXDPzraO3ttxgRAckXN ZgkTM6bdehSWwdZWRdEcK5 lbsjHUmqABWfTXY9HAiei8 80ORU7PRpkLvbmYIhuYQBr bmNvbnRccGduZGVjXHBsYW luXHBsYWluXGYwXGZzMjRc pVaoiNvxgN7mRaTqWcVjPV tqEB7jQMBzU6gbwRIyGTId SZGyI4laWhSisV7lnDonTS cwzuXuDKSeW1OmysWxXMtw GSZstx3mzZzsNHffOsYlFX QgdGhlIHBhdGllbnQncyBu XU1uWXZmA5Ubi3Lvb41wzp PmIrVfSCXjTLBkV9FhrNZr EfVwlP4jb4vbOYouOWHeXP 5tCYjoKB7uVPyvRK7wEKXd JNXzsx5jsD0yOTUzl5O8QM BogmUigSBkzPA4vWpvcQZz moKtdHl9ZHUfIROvloKxu9 BdkKm0fCYlDYhsYMUppI4v mJ9qAWQjFDRusgeiMXTzMI lsYXIgQXJndWVsbGVzLCBQ FAaeGQTfWZZKQ5HwMCKmib 0= MICROSCOPIC DESCRIPTION a5zxvDEtADOptBB0TtZnYT (test code = 3371) Qrt1pok1JthFWkbGLdQNyf bUIqsjGwaw27xFJ5dB26XS 2eKVCrEqN3PSOlfwP7Okq6 GBHjKCNrsTEgE748e7yeu5 gougDdwKR9iJdzNUFpIKHa DYksHQNjPkPuXRBwBz7ubH VkLlxwYXJ9 SPECIAL STUDIES (test t6algXXuUJLwc0uwWUZlkV code = 3376) FuZzEwMzNcZnRuYmpcdWMx IZcxopWgJVelj4IqP0XbKo AwMFxhbnNpXGRlZmxhbmcx XKKsBAI8ckTmEWMzGZlrXN LxLQckLz8esFWxdJnbEgDm LTZls5nihlWBahfoqEx5i6 xuDLSaQzW3tZTfSJvuY4zz emTqkUWxH1HbbFYaiLh2q2 rmQfOvFwR0cSRcGBysD1ue taAlaIUdCQEbDCk3pQ49BH JxdH3xlUXvRKdzuqMsMtC7 URjaTCFpXnK1TMLriZDhOY FhU7dvKAVeQZxcWXChLNkq fRUlMBZ4wYglm2R6fOWekE WffVoiIxYmEwNyPoMUc8Zh TZw1uXnfV0FbQUDhFsW1zK QgUGFyYWdyYXBoIEZvbnQ7 aXofvpJdr42ihMErLXNiQU NgVtIlqTtoVNAdADOXd0Pq vCbqKFJ9cGw2sEolSihjBK Y8Mac9RB6zlk47vvu2qFez MLXgjrfyXoC7NAuzGHOkro afGFz3QOoeCIKbtFO7ECUr kIUeK3SqUITpMV6ttgp5YH C7CCwnVLRuWvF1ZONrfWKu TWQryMazLFkub008MHH5Vp ZtQH2rQ1Nnd1M8uG6rsAWr HZDntXFrQaRgAZTvip7xgE SfOVmyj3KuEPY5jqC4iWYo hFAkMTUuRP82Iltqy5JnLa psu8CcY02ugDZ6WEeed3qy MQ1bFuX4wgAlGZijp4eeaL 4tExV9TQsgIR7wRW6uVIKd cP2ujaobEZUaQoKwfwauEP UfjPhlybBgPf2moOybPKZ4 CCqeK1orrG4jVgV7XRpbQ7 ilyS3bBMg4FIfzbTZ1UBHn lU9mOB7pibxyt4tyETyiEA aeMMRborO9amQ1MBHenQXf T1GhbQ3dINXcXL1rnkoaf1 pdTYN8EOpsJZMjBUQ8LfQo WMNkf9Ybugh1XkVlw8RwwV TwPDdmW17ma050XGPgxuRx H1aolNCkoemovZGhcpsfZA gjjiB4SCPwSTGlDPscJIIk XGZzMjJcbGFuZzEwMzNcaG ljaFxmMVxkYmNoXGYxXGxv G7thCpKrR7FiJXOgCoQkRE vsCQxtbDKkfXLikHO7yJ1b NK6oQIGgrKLvI1DbZKZcoa HjhVQfCSE7tQNygIYtGP7x PTbjpUJri7yyx9VwK8wcmN opnXL1RR1qYKChXEIpFUvy p0NyhC8wAafzwCFovnerNH xmczIyXGxhbmcxMDMzXGhp H3zzVmSeNUFirBalOWyhy0 NoXGYxXGNmMlxmczIyXGx0 cmNoXHBhclxwYXJccGxhaW 5nMjStDtAtPdbjVO6qDPMh B3kxjATdJSReXBVuL2mnEx BbxQ0rbIgaYZrhVyMpPaXj FnTAg271fz9pNRHbyGZonq SAzVHoiU5nIVeeGCzfLKkv rTDlNWgth4peOMOlp2k0eR JvFUFirwQrp3ogKZzqcaUv IGZhmMVehIAfBEBqj53oNX kzbZjugIjyYLIhk8IamKtt o2CuGgUjHIhgy0CiQ99twS JvbCBzbGlkZXMgcnVuIGFs n75kd7xhAIXrFxD2aJYsnM F5tFJkeTVne8OnjMuzXMYt d5uiMQCdea3hnihbjIAco9 OjwQ4pvaxgKErfrZYaavVx DPWcv3s0wUZvVAOiDLNaTS uxmSv3ZZVbu680tw8fjnQ2 xXDhKXR1SQevIQUnGPBggk UgZXZhbHVhdGVkXHBsYWlu XGYxXGZzMjJcbGFuZzEwMz NcaGljaFxmMVxkYmNoXGYx GVzfW0nvOqGlX2ZnKOTzTk LshZRqD5ageROqGFBoZZpt XGYxXGZzMjJcbGFuZzEwMz NcaGljaFxmMVxkYmNoXGYx JKaoB4kuWyLuQ3QzYCYaMu IgIFxwbGFpblxmMVxmczIy RRikgcmfKRZyMMlxY2dcEv EwIIWnaQcaMFqyu5BvMHCv TAJbHixwaoVxKKe9asNiQS BhclxwbGFpblxmMVxmczIy AWxvuroyJWYwQYxdP9qfGj HuDKAajBwtUQrmd1AcXMCh XGNmMlxmczIyIEltbXVub2 ncj4NfE0shvEhjqYA4NGNm U3crwYBggVS7VIC3fN9cBS mlekKpHVJub6ZfXMMqJGWi EzL6mK6sOGW0DxRYtYqeDJ BsYWluXGYxXGZzMjJcbGFu ZzEwMzNcaGljaFxmMVxkYm ImHUPbKZjkA1bqBxGvZ3Cd OSJnKgVwpHysPUrnUHd5Tc xwbGFpblxmMVxmczIyXGxh krewWOAxQOmvR0jjJxAnJK HkpSkwPSlbc6WiWGByEKIq MlxmczIyIHMgTWVkaWNhbC QPJM33MUJoPWDthIhfkJ1f fKBUTLQilsK5n9F9RKgtMB PwPXu6TMssbfYjYJWfzN0c CKAxMM4bRWw9paGrPDJcc6 IoVO6uWYJtyHEmQWU4YLFp r5IbM8Xmw3UlWWBcGGLxoj 5lrqWlIsTKqYVnAHJuos61 MEAuKU9xU3qnIEBsQTVyng ZasIGth4JjGTWnwDX8iIAk GP3UEaHVg13uYEWuECANqn BmNKDnjRarkDC5ywB2xY2k LiBUaGUgRkRBIGhhcyBkZX Burm6jpdZcIDMpJYQlr6Vj qSKvzIUamdFtN4Iiq9TaMV Zkjc66SUvbgCMtas71NR3y C5Qkv3NcdU6qCGkeVPBhc9 DnbYHzpGHaAFCgo9GdG4fh nfqrHPgubXWupC0gVWHjQA m6JPBhq7HmMIToa2WhEgQg oqVtDYRnGCHeKVVzuG15ES B4uKymwHofokEyUN1dIKGl qcScOBNoMCZbuS9pRPglsh SiNPWwmmB2y4T3YMczXHXf hjMsMaubOCK1bqIvnhS2oC CnX9hlvgswPMbjETKil8Qn gO8uaOVAaHBnd9NxwRExyC TJeIAtUI6etaBcTZ0oGGU4 ODggKENMSUEtODgpIGFzIH H5TYnyWsemVDR1guVpQUKc g0OuLYdpD8msR50ngVldbZ s6cWFyiFssdBYjxQWvUDHa rjL5i6A9KDRmr9AxdnwaXK BsYWluXGYyXGZzMjJcbGFu ZzEwMzNcaGljaFxmMlxkYm JrMEQcIAiqV3srPuXrDhMp TcsuFQT3cL== Gross assessment was [facility] performed at ([facility], = 9427) Department of Pathology, [address] [place] [address], Technical component was [facility] performed at ([facility], = 1482) Department of Pathology, [address] [place] [address], Professional component [facility] was performed at ([facility], code = 5453) Department of Pathology, [address] [place] [address], [facility] AngelesTISSUE [id number] 16:45:00Surgical Pathology Report Case: [id number] Authorizing Provider: Maude Varghese MD Collected: 05/08/2020 08:18 AM Ordering Location: [address] Received: 05/09/2020 08:27 AM Service Pathologist: Jud Werner MD Specimen: Biopsy, Gastric, random gastric bx A. STOMACH, RANDOM BIOPSY- CHRONIC INACTIVE GASTRITIS, MILD- NO INTESTINAL METAPLASIA, DYSPLASIA OR CARCINOMA IDENTIFIED- NO HELICOBACTER PYLORI LIKE ORGANISMS IDENTIFIED ON WARTHIN STARRY STAIN Signing Patho logist Direct Phone Line: [phone] signed by Jud Werner MD on 05/09/2020 at 4:45 [id number], [id number] thickeningGastricReceived in formalin labeled the patient's name, [...] evaluated Immunohistochemistry technical testing was performed at [facility], Pathology Laboratory where it was developed and [...] qualified to perform high complexity clinical laboratory testing.[facility], Department of Pathology, [address] [place] [address], [facility] of Pathology, [address] [place] [address], [facility], Department of Pathology, [address] [place] [address], HFNGQHSKBHRCE METABOLIC [id number] 13:06:00 Test Item Value Reference Range Interpretation [...] S NOT APPLICABLE FOR DIALYSIS PATIEN TS. Business Machine Operator ID - HAROON COperator ID - HAROON CManual [id number] 12:59:00 Test Item Value Reference Range Interpretation [...] = 3438) KAYLA (test code = KAYLA) Business Machine Operator ID - Zaria Awais comments: Slide comments: Lab Interpretation Abnormal (test code = 78968-4) [facility] W/PLT COUNT & AUTO [id number] 12:59:00 Test Item Value Reference Range Interpretation [...] CONCENTRATION Adequate (CELLAVISION)(BEAKER) (test code = 3438) Business Machine Operator ID - Zaria Ernandez comments: Slide comments:Peripheral Blood Smear - Path [id number] 11:42:00 Test Item Value Reference Range Interpretation Comments RBC Morphology (test Macrocytosis code = 9596) WBC Morphology (test See comment code = 9927) Platelet Morphology No ClumpingNo (test code = 2848) Satellitosis Pathologist Review WBC demonstrate a (test code = 2640) leukocytosis predominantly composed of mature neutrophils with occasional hypersegmented forms. No circulating blast identified. Lymphocytes demonstrates reactive and few atypical forms. Pathologist: (test Neri Del Cid MD code = 2849) (electronic signature) [facility] AngelesPERIPHERAL BLOOD SMEAR - PATHOLOGIST REVIEW 2020-05-09 11:42:00 Test Item Value Reference Range Interpretation Comments RBC MORPHOLOGY Macrocytosis (BEAKER) (test code = 2846) WBC MORPHOLOGY See comment (BEAKER) (test code = 2847) PLT MORPHOLOGY No Clumping (BEAKER) (test code = 2848) PLT MORPHOLOGY No Satellitosis (BEAKER) (test code = 16132) PERIPHERAL SMR REVIEW WBC demonstrate a (BEAKER) (test code = leukocytosis 2640) predominantly composed of mature neutrophils with occasional hypersegmented forms. No circulating blast identified. Lymphocytes demonstrates reactive and few atypical forms. [id number] Neri Del Cid MD (BEAKER) (test code = (electronic signature) 2849) CT, BRAIN, WITHOUT [id number] 03:55:00Unlisted Reason for Exam - Click Yes and Enter Reason Below->No [facility] 1950 Sex: FFINAL REPORT [...] Signed: Keila Tiradoort Verified Date/Time: 05/09/2020 03:55:47 [facility] brain without IV [id number] 03:55:00Interface, External Ris In - 05/09/2020 3:58 AM CDTFINAL REPORT EXAM: CT head without contrast. CLINICAL HISTORY: Stroke, follow up COMPARISON: Head CT 05/07/2020. TECHNIQUE: CTimages of the head were obtained without intravenous contrast. This exam was performed according [facility] departmental dose optimization program which includes [...] [facility] & AUTO [id number] 07:37:00 Test Item Value Reference Range Interpretation [...] CONCENTRATION Adequate (CELLAVISION)(BEAKER) (test code = 3438) Business Machine Operator ID - Juanis OverholtUser comments: Slide comments:COMPREHENSIVE METABOLIC [id number] 05:55:00 Test Item Value Reference Range Interpretation [...] S NOT APPLICABLE FOR DIALYSIS PATIEN TS. Business Machine Operator ID - RIK VERNON, SILVERIO [id number] 19:23:00Unlisted Reason for Exam - Click Yes and Enter Reason Below->YesUnlisted Reason for Exam->Changing neurological symptoms. Known CVA [facility] 1950 Sex: FFINAL REPORT [...] Keila Tirado MDReport Verified Date/Time: 05/07/2020 19:23:01 [facility] [id number] 19:23:00 Interface, External Ris In - 05/07/2020 [...] Keila Tirado MDReport Verified Date/Time: 05/07/2020 19:23:01 [facility] ServicesUrinalysis w/Microscopic + Reflex to [id number] 18:22:00 Test Item Value Reference Range Interpretation Comments Color, UA (test code Yellow = 5778-6) Clarity, UA (test Clear code = 5767-9) Specific [place], UA 1.016 1.001-1.035 (test code = 5811-5) pH, UA (test code = 6.0 5.0-8.0 5803-2) Protein, UA (test 10 mg/dL Negative A code = 27953-1) Glucose, UA (test Negative Negative code = 365) Ketones, UA (test Trace Negative A code = 2514-8) Bilirubin, UA (test Negative Negative code = 56834-0) Blood, UA (test code Negative Negative = 18146-3) Nitrite, UA (test Negative Negative code = 5802-4) Leukocytes, UA (test Trace Negative A code = 5799-2) Urobilinogen, UA 0.2 mg/dL 0.2-1 (test code = 55099-1) RBC, UA (test code = <1 See_Comment [Autom ated 11192-8) message] The system which generated this result [...] 6 See_Comment [Automate d (test code = 24538-5) messag e] The system which generated this result transmitted reference range : /HPF. The reference range was not used to interpret this result as normal/abnormal . Specimen Source (test code = 2795) KAYLA (test code = KAYLA) Business Machine Operator ID - [auto]Business Machine Operator ID - tech Lab Interpretation Abnormal (test code = 69187-8) [facility]INAL[facility] W/ REFLEX URINE [id number] 18:22:00 Test Item Value Reference Range Interpretation [...] = 516) SOURCE(BEAKER) (test code = 2795) Business Machine Operator ID - [auto]Business Machine Operator ID - techECHO W CONTRAST & [id number] 16:38:14Ejection FractionSLEH ECHO HEARTLAB MKCKESSON CPACSInterface, External Ris In - 05/07/2020 4:38 PM CDTTransthoracic Echocardiography Report (TTE) Demographics Patient Name MONCHO, Date of Study 05/07/2020 BELLO Gender Female Visit Number [id number] Race Unknown Room Number 2239 Number Date of 1950 Referring Physician YVETTE RUST Age 69 year(s) Energy And Sustainability Manager Viri Brito, RCSAnalyst Lalito Arvizu Interpreting [...] LVOT CO:8.98 l/min LVOT CI: 4.7 l/min/m^2[facility] CenterRAD, CHEST, 1 VIEW, NON [id number] 15:43:00Reason for exam:->SOBShould this be performed at the bedside?->Yes [facility] : 1950 Sex: FFINAL REPORT INDICATION: SOB COMPARISON: None TECHNIQUE: Single frontal view of the chest. FINDINGS: Lungs and pleura: Clear lungs. No effusion.Heart and mediastinum: Normal heart size. Unremarkable mediastinal contours.Osseous structures: No acute abnormality.Other: None. IMPRESSION: No acute intrathoracic abnormality. Signed: JR Ahmadi Robert MDReport Verified Date/Time: 05/07/2020 15:43:48 Reading Location: [address] Neuro Reading Room XR chest 1 view portable / [id number] 15:43:00Interface, External Ris In - 05/07/2020 3:46 PM CDTFINAL REPORT INDICATION: SOB COMPARISON: None TECHNIQUE: Single frontal view of the chest. FINDINGS: Lungs and pleura: Clear lungs. No effusion.Heart and mediastinum: Normal heart size. Unremarkable mediastinal contours.Osseousstructures: No acute abnormality.Other: None. IMPRESSION: No acute intrathoracic abnormality. Signed : JR Ahmadi Robert MDReport Verified Date/Time: 05/07/2020 15:43:48 Reading Location: [address] Neuro Reading Room [facility] ServicesECG 12 [id number] 10:48:32Interface, External Ris In - 05/07/2020 10:48 AM CDTVentricular Rate 98 BPMAtrial Rate 98 BPMP-R Interval 140 msQRS Duration 84 msQ-T Interval 378 msQTC Calculation(Sandy) 482 msP [place] 60 degreesR [place] 29 degreesT [place] 28 degreesNormal sinus rhythmNormal ECGNo previous ECGs availableConfirmed by MD Ana, Chasidy ([id number]) on 05/07/2020 10:48:30 [facility]CBC [facility]T COUNT & AUTO [id number] 10:05:00 Test Item Value Reference Range Interpretation [...] CONCENTRATION Adequate (CELLAVISION)(BEAKER) (test code = 3438) Business Machine Operator ID - Juanis OverholtUser comments: Slide comments:COMPREHENSIVE METABOLIC [id number] 05:39:00 Test Item Value Reference Range Interpretation [...] S NOT APPLICABLE FOR DIALYSIS PATIEN TS. Business Machine Operator ID - DBSARS-COV2/RT-PCR ([facility])2020-05-07 01:28:00 Test Item Value Reference Range Interpretation Comments SARS-COV2/RT-PCR (test Negative Not Detected, Negative, code = 8818719) See external report for linked test SARS-COV-[address] [facility] JOSUE (test code = 1063196) Negative result for this test determines that [...] Ramos SARS-CoV-2 assay.Fact Sheet for Healthcare Providers:https://www.molecular.ramos/erma/ JF_VQPK-CsM-2_CTR_Uccy_Ohyse_26-371032.pdfFact Sheet for Healthcare Patients:https://www.molecular.ab dawit/erma/WC_RJCN-JcS-8_Kqwckdf_Svpu_Azevm_NG_20-556556A9.pdfPerforming Laboratory:[facility] [address] [id number] 13:03:00 Test Item Value Reference Range Interpretation Comments Ferritin (test code = 232.07 ng/mL 5-275 2276-4) KAYLA (test code = KAYLA) Business Machine Operator ID - RM Lab Interpretation (test Normal code = 51941-1) [facility] AngelesFERRITIN2021-03-26 13:03:00 Test Item Value Reference Range Interpretation Comments FERRITIN (BEAKER) (test code = 232.07 ng/mL 5.00-275.00 361) Business Machine Operator ID - RMIron, TIBC, % sat. (without ferritin)2020-05-06 12:42:00 Test Item Value Reference Range Interpretation Comments Iron (test code = 2498-4) 71.0 ug/dL 40-160 TIBC (test code = 2500-7) 184 ug/dL 250-450 L Iron % Saturation (test code 39 % 20-55 = 2502-3) KAYLA (test code = KAYLA) Business Machine Operator ID - RM Lab Interpretation (test Abnormal code = 02487-2) [facility] AngelesIRON, TIBC, % SAT. (WITHOUT FERRITIN)2020-05-06 12:42:00 Test Item Value Reference Range Interpretation Comments IRON (BEAKER) (test code = 547) 71.0 ug/dL 40.0-160.0 TOTAL IRON BINDING CAPACITY 184 ug/dL 250-450 L (BEAKER) (test code = 769) IRON % SATURATION (2) (BEAKER) 39 % 20-55 (test code = 2590) Business Machine Operator ID - [id number] 12:26:00 Test Item Value Reference Range Interpretation Comments RPR (test code = 40021-9) Nonreactive Nonreactive Lab Interpretation (test code = Normal 84618-3) [facility] AngelesRPR2021-03-26 12:26:00 Test Item Value Reference Range Interpretation [...] CONCENTRATION Adequate (CELLAVISION)(BEAKER) (test code = 3438) Business Machine Operator ID - Zaria Ernandez comments: Slide comments:CBC W/PLT COUNT & AUTO [id number] 10:22:00 Test Item Value Reference Range Interpretation [...] 0-0 (BEAKER) (test code = 413) Hemoglobin [id number] 09:13:00 Test Item Value Reference Range Interpretation Comments Hemoglobin A1C (test code = 4548-4) 6.1 % 4.3-6.1 Lab Interpretation (test code = Normal 37977-7) [facility] AngelesHEMOGLOBIN [id number] 09:13:00 Test Item Value Reference Range Interpretation Comments HEMOGLOBIN A1C (BEAKER) (test code = 6.1 % 4.3-6.1 368) TSH/Free T4 If [id number] 08:03:00 Test Item Value Reference Range Interpretation Comments TSH (test code = 2.042 See_Comment [Automated 69255-4) message] The system which generated this result transmit herbie reference range : 0.350 - 4.940 uIU/mL. The reference range was not used to interpret this result as normal/abnormal . KAYLA (test code = KAYLA) Business Machine Operator ID - EDASI Lab Interpretation Normal (test code = 61035-4) [facility] AngelesVitamin B12 and [id number] 08:03:00 Test Item Value Reference Range Interpretation Comments Vitamin B12 (test 161 pg/mL 213-816 L code = 2132-9) Folate (test code = 5.10 ng/mL See_Comment L [Automa herbie 2284-8) message] The system which generated this result transmit herbie reference range : >=7.00. The reference range was not used to interpret this result as normal/abnormal . KAYLA (test code = KAYLA) Business Machine Operator ID - EDASI Lab Interpretation Abnormal (test code = 94928-6) [facility] AngelesTSH/FREE T4 IF [id number] 08:03:00 Test Item Value Reference Range Interpretation Comments THYROID STIMULATING HORMONE 2.042 uIU/mL 0.350-4.940 (BEAKER) (test code = 772) Business Machine Operator ID - EDASIVITAMIN B12 AND [id number] 08:03:00 Test Item Value Reference Range Interpretation Comments VITAMIN B12 (BEAKER) 161 pg/mL 213-816 L (test code = 774) FOLATE (BEAKER) 5.10 ng/mL See_Comment L [Automated message] (test code = 362) The system which generated this result transmitted ref erence range: >=7.00. The reference range was not used to interpr et this result as normal/abnormal . Business Machine Operator ID - EDASICOMPREHENSIVE METABOLIC [id number] 07:38:00 Test Item Value Reference Range Interpretation [...] 1092) DATA TO CALCULA TE ESTIMATED GFR. Business Machine Operator ID - RIK Annid [id number] 07:31:00 Test Item Value Reference Range Interpretation Comments Triglycerides (test 82 mg/dL Specimen code = 2571-8) slightly hemolyzed Cholesterol (test 117 mg/dL Specimen code = 2093-3) slightly hemolyzed HDL (test code = 36 mg/dL 5-9) LDL Calculated (test 65 mg/dL code = 34994-5) KAYLA (test code = Triglyceride KAYLA) Reference Range: Low Risk <150 Borderline 150-199 High Risk 200-499 Very High Risk >=500 Cholesterol Reference Range: Low Risk <200 Borderline 200-239 High Risk >240 HDL Cholesterol Reference Range: Low Risk >=60 High Risk <40 LDL Cholesterol Reference Range: Optimal <100 Near Optimal 100-129 Borderline 130-159 High 160-189 Very High >=190 Business Machine Operator ID - RIK Jameson [facility] AngelesC-Reactive [id number] 07:31:00 Test Item Value Reference Range Interpretation Comments CRP (test code = 676) 2.02 mg/dL 0-0.5 H KAYLA (test code = KAYLA) Business Machine Operator ID - RIK Jameson Lab Interpretation (test Abnormal code = 61506-4) [facility] AngelesLIPID [id number] 07:31:00 Test Item Value Reference Range Interpretation [...] Borderline 130-159 High 160-189 Very High >=190 Business Machine Operator ID - RIKLC-REACTIVE [id number] 07:31:00 Test Item Value Reference Range Interpretation Comments C-REACTIVE PROTEIN (BEAKER) (test 2.02 mg/dL 0.00-0.50 H code = 676) Business Machine Operator ID - RIK LProthrombin time/[id number] 07:28:00 Test Item Value Reference Interpretation Comments Range Protime (test code = 13.9 See_Comment [Autom ated 5902-2) message] The system which generated this result transmitted reference range : 11.9 - 14.2 seconds. The reference range was not used to interpret this result as normal/abnormal . INR (test code = 1.10 See_Comment [Automated 1543-6) message] The system which generated this result [...] valves. Lab Interpretation Normal (test code = 28459-3) [facility] AngelesPROTHROMBIN TIME/[id number] 07:28:00 Test Item Value Reference Range Interpretation Comments PROTIME (BEAKER) 13.9 seconds 11.9-14.2 (test code = 759) INR (BEAKER) (test 1.10 See_Comment [Automat ed message] code = 370) The system [employer] generated this result transmitted ref erence range: [...]
[2020-08-18 11:42] LABS: Basophils % 0.4 % (0-1.3); Hematocrit 31.9 % (36.0-45.0); Lymphocytes % 9.6 % (15.3-44.8); MPV 9.9 fL (7.6-11.3); RBC Red Blood Cell Count 3.42 M/uL (3.86-4.86)
[2020-08-18 11:59] LABS: Potassium 4.1 mmol/L (3.5-5.1)
--- NOTE | 2020-08-18 12:11 | RAD REPORT ---
EXAM DESCRIPTION: CT - Head Brain Wo Cont - 08/18/2020 11:56 am CLINICAL HISTORY: DIZZINESS COMPARISON: Head Brain Wo Cont dated 08/13/2020 TECHNIQUE: Axial 5 mm thick images of the head were obtained without IV contrast. All CT scans are performed using dose optimization technique as appropriate and may include automated exposure control or mA/KV adjustment according to patient size. FINDINGS: No intracranial hemorrhage, mass, edema or shift of mid-line structures. No acute cortical based infarction identified. No cortical edema or sulcal effacement. There is a large amount of glio sis involving the right frontal and parietal lobes from remote CVA. This matches the prior study. Pat ient has underlying mild to moderate atrophy. Ventricles are in proportion to the amount of volume lo ss. Arterial calcifications are present. No abnormal extra-axial fluid collections. Mastoid air cells and visualized portions of the paranasal sinuses are clear. No acute bony findings. IMPRESSION: Negative non-contrast CT head examination for acute finding. Above detailed findings are stable from short interval August 13 study.
[2020-08-18 12:30] LABS: Urine Blood Trace-intact (Negative); Urine Glucose Negative (Negative); Urine Protein Negative (Negative); Urine pH 6.5 (5.0-7.0)
[2020-08-18] MEDS ORDERED: NA CHLORIDE 0.9% 1,000 ML ONE (12:30)
[2020-08-18 13:03] LABS: Blood Morphology Comment NOT SEEN (NOT SEEN); Platelet Estimate ADEQ
[2020-08-18 13:28] LABS: Urine Bacteria <20 /HPF (<20)
--- NOTE | 2020-08-18 14:30 | RAD REPORT ---
EXAM DESCRIPTION: RAD - Chest Single View - 08/18/2020 2:24 pm CLINICAL HISTORY: AMS, elevated WBC Chest pain. COMPARISON: Chest Single View dated 08/13/2020 FINDINGS: Portable technique limits examination quality. The lungs are grossly clear. The heart is normal in size. No displaced fractures. IMPRESSION: No acute intrathoracic process suspected.
--- NOTE | 2020-08-18 14:35 | RAD REPORT ---
EXAM DESCRIPTION: CTAbdomen Pelvis W Contrast - 08/18/2020 2:23 pm CLINICAL HISTORY: Abdominal pain. AMS, elevated WBC COMPARISON: Abdomen Pelvis W Contrast dated 05/05/2020 TECHNIQUE: Biphasic CT imaging of the abdomen and pelvis was performed with 100 ml non-ionic IV cont rast. All CT scans are performed using dose optimization technique as appropriate and may include automated exposure control or mA/KV adjustment according to patient size. FINDINGS: The lung bases are clear.Small hiatal hernia. The liver, spleen, pancreas, adrenal glands and kidneys are within normal limits. No bowel obstruction, free air, free fluid or abscess. Sigmoid diverticulosis coli is present without diverticulitis. Significant stool is retained proximal to this level in the colon. The appendix is n ot identified as a discrete structure, however, no secondary findings of appendicitis are identified. No evidence of significant lymphadenopathy. Moderate lumbosacral degenerative changes. IMPRESSION: Sigmoid diverticulosis is present. No evidence of diverticulitis. Significant stool retention is seen in the colon particularly the right colon.
--- NOTE | 2020-08-18 14:53 | EDPHYS ---
Physician Documentation [facility] Name: Sherrie Kim Age: 69 yrs Sex: Female : 1950 Arrival Date: 08/18/2020 Time: 11:02 Bed 7 Private MD: ED Physician Feliciano Royal HPI: 08/18 12:26 This 69 yrs old Female presents to ER via EMS with complaints of General rn Weakness, Fall Injury, Hallucinations. 12:26 The patient presents with confusion, disorientation. Onset: The symptoms/episode rn began/occurred at an unknown time. Possible causes: unknown. Associated signs and symptoms: Pertinent positives: confusion, weakness, Pertinent negatives: abdominal pain, chest pain, diarrhea, headache, seizure, shortness of breath, vomiting. Current symptoms: In the emergency department the patient's symptoms have improved. It is unknown whether or not the patient has had similar symptoms in the past. The patient has been recently seen by a physician:. Reports generalized weakness, fatigue, confusion, hallucinations, and falls, unknown onset, reports recently diagnosed with UTI and put on bactrim, unclear if taking currently or when diagnosis made. No fever. Reports generalized weakness. . Historical: - Allergies: 11:05 Erythromycin; tr6 11:05 GABAPENTIN; tr6 - PMHx: 11:05 Cerebrovascular accident; L hand deficits; GERD; High Cholesterol; sciatic pain; tr6 12:52 Hepatitis C; kg - PSHx: 11:05 Cholecystectomy; tubal ligation; tr6 - Immunization history:: Client reports having NOT received the Covid vaccine. - Social history:: Smoking status: Patient reports the use of cigarette tobacco products, denies chronic smoking, but will smoke occasionally. - Family history:: not pertinent. - Hospitalizations: : No recent hospitalization is reported. ROS: 12:38 Constitutional: Negative for fever, chills, and weight loss, Eyes: Negative for injury, rn pain, redness, and discharge, Neck: Negative for injury, pain, and swelling, Cardiovascular: Negative for chest pain, palpitations, and edema, Respiratory: Negative for shortness of breath, cough, wheezing, and pleuritic chest pain, Abdomen/GI: Negative for abdominal pain, nausea, vomiting, diarrhea, and constipation, Back: Negative for injury and pain, : Negative for injury, bleeding, discharge, and swelling, MS/Extremity: Negative for injury and deformity, Skin: Negative for injury, rash, and discoloration, Neuro: Negative for headache, numbness, tingling, and seizure. Exam: 12:38 Constitutional: This is a well developed, well nourished patient who is awake, alert, rn and in no acute distress. Head/Face: Normocephalic, atraumatic. Eyes: Periorbital areas with no swelling, redness, or edema. ENT: very dry MM Neck: No Meningismus. Cardiovascular: Tachycardic, regular Respiratory: No increased work of breathing, no retractions or nasal flaring. Abdomen/GI: soft, non-tender Skin: Warm, dry MS/ Extremity: Pulses equal, no cyanosis. Neuro: Awake and alert, GCS 15, oriented to person, place, not time. Cranial nerves II-XII grossly intact. Motor strength 4-/5 LUE with drift. 4+/5 strength elsewhere. Sensory grossly intact. Vital Signs: 11:00 BP 120 / 70; Pulse 110; Resp 20; Pulse Ox 95% on R/A; kg 11:05 BP 120 / 70; Pulse 114; Resp 20; Pulse Ox 95% ; Weight 89.81 kg; Height 5 ft. 2 in. tr6 (157.48 cm); Pain 0/10; 11:30 BP 104 / 78; Pulse 109; Resp 20; Pulse Ox 95% on R/A; kg 11:45 BP 115 / 76; Pulse 104; Resp 20; Pulse Ox 95% on R/A; kg 12:15 BP 116 / 74; Pulse 110; Resp 20; Pulse Ox 99% on R/A; kg 12:30 BP 117 / 81; Pulse 102; Resp 20; Pulse Ox 100% on R/A; kg 13:41 BP 133 / 81; Pulse 109; Resp 15; Pulse Ox 97% on R/A; kg 14:00 BP 129 / 79; Pulse 106; Resp 20; Pulse Ox 99% on R/A; kg 15:00 BP 121 / 82; Pulse 101; Resp 19; Pulse Ox 100% on R/A; kg 16:00 BP 123 / 109; Pulse 109; Resp 26; Pulse Ox 100% on R/A; kg 16:54 BP 124 / 62; Pulse 99; Resp 20; Pulse Ox 100% ; ll1 17:41 BP 106 / 65; Pulse 98; Resp 22; Pulse Ox 97% on R/A; kg 11:05 Body Mass Index 36.21 (89.81 kg, 157.48 cm) tr6 MDM: 11:05 Patient medically screened. rn 14:51 Differential Diagnosis: CVA, electrolyte abnormality, intracranial bleed, pneumonia, rn sepsis, TIA, UTI, volume depletion. Data reviewed: vital signs, nurses notes, lab test result(s), EKG, radiologic studies, CT scan, plain films, and as a result, I will admit patient. Counseling: I had a detailed discussion with the patient and/or guardian regarding: the historical points, exam findings, and any diagnostic results supporting the discharge/admit diagnosis, lab results, radiology results, the need for further work-up and treatment in the hospital. Response to treatment: the patient's symptoms have mildly improved after treatment, and as a result, I will admit patient. Admission orders: after a detailed discussion of the patient's condition and case, the admit orders are written by me. ED course: Pt with elevated WBC and dehydration. No acute findings in CT head/cxr/ct abdomen/Urine. Still tachycardic and not at baseline, will admit to Dr. Tong for IV hydration and further w/u.. 08/18 11:11 Order name: CBC with Diff rn 08/18 11:11 Order name: Basic Metabolic Panel; Complete Time: 12:05 08/18 11:11 Order name: Urine Culture rn 08/18 11:11 Order name: Urine Microscopic Only; Complete Time: 13:58 08/18 11:11 Order name: Blood Culture Adult (2) rn 08/18 11:11 Order name: Procalcitonin; Complete Time: 13:58 08/18 11:11 Order name: CT Head Brain wo Cont; Complete Time: 12:24 rn 08/18 11:11 Order name: Lactate; Complete Time: 12:05 08/18 11:12 Order name: CBC with Automated Diff; Complete Time: 13:58 EDCO 08/18 11:53 Order name: Manual Differential; Complete Time: 13:58 EDCO 08/18 12:30 Order name: Urine Dipstick-Ancillary; Complete Time: 13:58 EDCO 08/18 12:33 Order name: COVID-19 : Document "Date of Symptom Onset" if Symptomatic. kg 08/18 14:29 Order name: SARS-COV-2 RT PCR; Complete Time: 14:36 EDMS 08/18 11:11 Order name: IV Start; Complete Time: 12:34 rn 08/18 11:11 Order name: EKG; Complete Time: 11:12 rn 08/18 11:11 Order name: EKG - Nurse/Tech; Complete Time: 12:34 rn 08/18 11:11 Order name: Urine Dipstick-Ancillary (obtain specimen); Complete Time: 12:34 rn 08/18 13:59 Order name: CT Abd/Pelvis - IV Contrast Only; Complete Time: 14:36 rn 08/18 14:00 Order name: XRAY Chest (1 view); Complete Time: 14:36 rn Administered Medications: 12:00 Drug: NS 0.9% 1000 ml Route: IV; Rate: 1000 ml; Site: left hand; kg 13:00 Follow up: IV Status: Completed infusion; IV Intake: 1000ml kg 13:00 Follow up: Response: No adverse reaction; Marked relief of symptoms kg 16:55 Drug: Rocephin (cefTRIAXone) 1 grams Route: IV; Rate: calculated rate; Site: left hand; ll1 16:55 Follow up: Response: No adverse reaction; IV Status: Completed infusion; IV Intake: [id number] 17:48 Follow up: Response: No adverse reaction kg Disposition Summary: 08/18/20 14:52 Hospitalization Ordered Hospitalization Status: Observation rn Provider: Arnol Tong [facility]n [facility]n Condition: Stable rn Problem: new rn Symptoms: have improved rn Bed/Room Type: Standard rn Room Assignment: 202(08/18/20 16:38) dw Diagnosis - Dehydration rn - Altered mental status, unspecified rn - Elevated white blood cell count, unspecified rn Forms: - Medication Reconciliation Form rn - SBAR form rn Signatures: Dispatcher [employer] EDSaira Mcknight RN RN dw Nieto, Roman, MD MD rn Lewis, Lynsay, RN RN ll1 Gerri Islas RN RN tr6 Briana Kinney RN RN kg Corrections: (The following items were deleted from the chart) 13:29 12:34 CORONAVIRUS ordered. EDMS EDMS 16:38 14:52 rn dw
--- NOTE | 2020-08-18 14:53 | ER ---
Nurse's Notes [facility] Name: Sherrie Kim Age: 69 yrs Sex: Female : 1950 Arrival Date: 08/18/2020 Time: 11:02 Bed 7 Private MD: Diagnosis: Dehydration;Altered mental status, unspecified;Elevated white blood cell count, unspecified Presentation: 08/18 11:02 Chief complaint: EMS states: called out by son for generalized weakness, has fallen 5 tr6 times this morning. Unknown time of onset. A\\T\\O x 4. Pt reports auditory hallucinations and dx w/ UTI last week and is on Bactrim. Care prior to arrival: None. Mechanism of Injury: Fall unknown. Trauma event details: [facility], Injury occurred: at home. Injury occurred: August 18, 2020. 11:02 Method Of Arrival: EMS: [facility] tr6 11:02 Acuity: NILESH 2 sv 11:05 Coronavirus screen: Client denies travel out of the [place] in the last 14 days. At this tr6 time, the client does not indicate any symptoms associated with coronavirus-19. Ebola Screen: No symptoms or risks identified at this time. Initial Sepsis Screen: Does the patient meet any 2 criteria? HR > 90 bpm. No. Patient's initial sepsis screen is negative. Does the patient have a suspected source of infection? No. Patient's initial sepsis screen is negative. Risk Assessment: Do you want to hurt yourself or someone else? Patient reports no desire to harm self or others. Onset of symptoms was August 18, 2020. Trauma Activation: Alert Physician: ED Physician; Name: ; Notified At: ; Arrived At: Physician: General Surgeon; Name: ; Notified At: ; Arrived At: Physician: Radiology; Name: ; Notified At: ; Arrived At: Physician: Respiratory; Name: ; Notified At: ; Arrived At: Physician: Lab; Name: ; Notified At: ; Arrived At: Historical: - Allergies: 11:05 Erythromycin; tr6 11:05 GABAPENTIN; tr6 - PMHx: 11:05 Cerebrovascular accident; L hand deficits; GERD; High Cholesterol; sciatic pain; tr6 12:52 Hepatitis C; kg - PSHx: 11:05 Cholecystectomy; tubal ligation; tr6 - Immunization history:: Client reports having NOT received the Covid vaccine. - Social history:: Smoking status: Patient reports the use of cigarette tobacco products, denies chronic smoking, but will smoke occasionally. - Family history:: not pertinent. - Hospitalizations: : No recent hospitalization is reported. Screenin:20 Abuse screen: Denies threats or abuse. Denies injuries from another. Nutritional kg screening: No deficits noted. Nutritional screening: Difficulty chewing/swallowing? Yes. Tuberculosis screening: No symptoms or risk factors identified. Fall Risk Fall in past 12 months (25 points). Secondary diagnosis (15 points) impaired mobility, CVA, IV access (20 points). Ambulatory Aid- Crutches/Cane/Walker (15 pts). Gait- Impaired (20 pts.). Mental Status- Overestimates/Forgets Limitations (15 pts.). Total Tello Fall Scale indicates High Risk Score (45 or more points). Fall prevention measures have been instituted. Side Rails Up X 2 Placed Close to Nursing Station Frequent Obs/Assessments Occuring As available patient and family educated on Fall Prevention Program and Strategies. Sepsis Screening:. Assessment: 11:35 General: Appears in no apparent distress. Behavior is calm, cooperative, appropriate kg for age, quiet. Pain: Complains of pain in Head, Left arm Pain radiates to Generalized. 11:35 Neuro: Level of Consciousness is awake, alert, obeys commands, confused, Oriented to kg person, place, situation, Primary Special Educator are weak on left Weakness in left Speech is normal, Reports numbness in left arm since Since previous stroke. Cardiovascular: Heart tones S1 S2 Capillary refill < 3 seconds Rhythm is sinus tachycardia. Respiratory: No deficits noted. Breath sounds are clear Breath sounds are diminished bilaterally. GI: No deficits noted. : Reports Pt stated, "I was diagnosed with a urinary infection three days ago and just started Bactrim today.". EENT: Oral mucosa is dry. Derm: Bruising that is Generalized bruising in different stages of healing. Pt stated it was from multiple falls at home. Vital Signs: 11:00 BP 120 / 70; Pulse 110; Resp 20; Pulse Ox 95% on R/A; kg 11:05 BP 120 / 70; Pulse 114; Resp 20; Pulse Ox 95% ; Weight 89.81 kg; Height 5 ft. 2 in. tr6 (157.48 cm); Pain 0/10; 11:30 BP 104 / 78; Pulse 109; Resp 20; Pulse Ox 95% on R/A; kg 11:45 BP 115 / 76; Pulse 104; Resp 20; Pulse Ox 95% on R/A; kg 12:15 BP 116 / 74; Pulse 110; Resp 20; Pulse Ox 99% on R/A; kg 12:30 BP 117 / 81; Pulse 102; Resp 20; Pulse Ox 100% on R/A; kg 13:41 BP 133 / 81; Pulse 109; Resp 15; Pulse Ox 97% on R/A; kg 14:00 BP 129 / 79; Pulse 106; Resp 20; Pulse Ox 99% on R/A; kg 15:00 BP 121 / 82; Pulse 101; Resp 19; Pulse Ox 100% on R/A; kg 16:00 BP 123 / 109; Pulse 109; Resp 26; Pulse Ox 100% on R/A; kg 16:54 BP 124 / 62; Pulse 99; Resp 20; Pulse Ox 100% ; ll1 17:41 BP 106 / 65; Pulse 98; Resp 22; Pulse Ox 97% on R/A; kg 11:05 Body Mass Index 36.21 (89.81 kg, 157.48 cm) tr6 ED Course: 11:02 Patient arrived in ED. tr6 11:05 Triage completed. tr6 11:05 Feliciano Royal MD is Attending Physician. rn 11:06 Arm band placed on. tr6 11:20 Patient has correct armband on for positive identification. Allergy band placed. Fall kg risk band placed. Placed in gown. Bed in low position. Call light in reach. Side rails up X2. 11:25 Inserted saline lock: 22 gauge in left hand, using aseptic technique. kg 11:31 Briana Kinney, RN is Primary Nurse. kg 11:31 CBC with Automated Diff Sent. kg 11:31 Procalcitonin Sent. kg 11:31 Lactate Sent. kg 11:31 Blood Culture Adult (2) Sent. kg 11:56 CT Head Brain wo Cont In Process Unspecified. EDMS 12:34 CBC with Diff Sent. kg 12:34 Procalcitonin Sent. kg 12:50 Inserted saline lock: 22 gauge in right upper arm, using aseptic technique. ,using kg aseptic technique. KJ Tech. 12:51 No provider procedures requiring assistance completed. kg 14:22 CT Abd/Pelvis - IV Contrast Only In Process Unspecified. EDMS 14:23 XRAY Chest (1 view) In Process Unspecified. EDMS 14:52 Arnol Vidales DO is Hospitalizing Provider. rn 17:28 Report given to Pan DURAND. kg Administered Medications: 12:00 Drug: NS 0.9% 1000 ml Route: IV; Rate: 1000 ml; Site: left hand; kg 13:00 Follow up: IV Status: Completed infusion; IV Intake: 1000ml kg 13:00 Follow up: Response: No adverse reaction; Marked relief of symptoms kg 16:55 Drug: Rocephin (cefTRIAXone) 1 grams Route: IV; Rate: calculated rate; Site: left hand; ll1 16:55 Follow up: Response: No adverse reaction; IV Status: Completed infusion; IV Intake: [id number] 17:48 Follow up: Response: No adverse reaction kg Intake: 13:00 IV: 1000ml; Total: 1000ml. kg 16:55 IV: 20ml; Total: 1020ml. ll1 Output: 12:55 Urine: 400ml (Straight Cath); Total: 400ml. kg Outcome: 14:52 Decision to Hospitalize by Provider. rn 17:29 Admitted to Med/surg accompanied by tech, via stretcher, room 202, Report called to deni Petit RN 17:29 Condition: stable kg 17:29 Instructed on the need for admit, Demonstrated understanding of follow-up care. 17:48 Patient left the ED. kg Signatures: Dispatcher [employer] Hailey Davenport RN RN Feliciano Ugarte MD MD rn Lewis, Lynsay, RN RN ll1 Gerri Islas RN RN tr6 Briana Kinney RN RN kg Corrections: (The following items were deleted from the chart) 11:15 11:02 Acuity: NILESH 3 tr6 sv
--- NOTE | 2020-08-18 15:59 | P.HP ---
Certification for Inpatient Patient admitted to: Observation With expected LOS: <2 Midnights Patient will require the following post-hospital care: Home Health Services Practitioner: I am a practitioner with admitting privileges, knowledge of patient current condition, hospital course, and medical plan of care. Services: Services provided to patient in accordance with Admission requirements found in Title 42 Section 412.3 of the Code of Federal Regulations Patient History Date of Service: 08/18/20 Primary Care Provider: Randy Romero NP Reason for admission: Falls, confusion History of Present Illness: 69-year-old female with history of CVA with left-sided residual weakness, GERD, hypertension. Patient presented with some confusion and increased fall and weakness. Patient denied any fever, dysuria, chest pain or shortness of breath. She denied any nausea, vomiting. She reports that she was recently hospitalized in April for CVA. She was sent to [facility] for skilled placement. Since then she has been living with her son. Most recently patient was seen by her PCP. She was told that she had a UTI. She was sent home with Bactrim. She reports she was only able to take 2 days of medication. Since then increasing falls noted. She was brought into the ER for further evaluation. Patient evaluated emergency room. Patient appears slightly dehydrated. Vital signs stable. Patient afebrile. White count 23, hemoglobin 10.4. Platelet count 284. Sodium 139, potassium 4.1. Creatinine 1.01 with a GFR 55. Chest x- ray unremarkable. CT head unremarkable. CT abdomen showed some constipation. Hiatal hernia noted. Procalcitonin negative. Covid test negative. Patient was admitted for observation. Home medications list reviewed: No - Past Medical/Surgical History Diabetic: No -: History of CVA with left-sided residual weakness -: Hyperlipidemia -: Hypertension -: GERD with hiatal hernia -: Obesity -: Former tobacco use -: Cholecystectomy Psychosocial/ Personal History: Patient lives with son - Family History Family History: Reviewed- Non-Contributory - Social History Smoking Status: Former smoker Alcohol use: No CD- Drugs: No Caffeine use: No Place of Residence: Home Review of Systems General: Weakness, As per HPI Eyes: Unremarkable ENT: Unremarkable Respiratory: Unremarkable Cardiovascular: Unremarkable Gastrointestinal: Unremarkable Genitourinary: Unremarkable Musculoskeletal: Unremarkable Integumentary: Unremarkable Neurological: Weakness, Confusion, As per HPI Lymphatics: Unremarkable Physical Examination - Studies Laboratory Data (last 24 hrs) 08/18/20 11:23: Sodium 139, Potassium 4.1, BUN 18, Creatinine 1.01, Glucose 83 08/18/20 11:23: WBC 20.40 H* D, Hgb 10.4 L, Hct 31.9 L D, Plt Count 285 Assessment and Plan - Plan CT head: COMPARISON: Head Brain Wo Cont dated 08/13/2020 TECHNIQUE: Axial 5 mm thick images of the head were obtained without IV contrast. All CT scans are performed using dose optimization technique as appropriate and may include automated exposure control or mA/KV adjustment according to patient size. FINDINGS: No intracranial hemorrhage, mass, edema or shift of mid-line structures. No acute cortical based infarction identified. No cortical edema or sulcal effacement. There is a large amount of gliosis involving the right frontal and parietal lobes from remote CVA. This matches the prior study. Patient has underlying mild to moderate atrophy. Ventricles are in proportion to the amount of volume loss. Arterial calcifications are present. No abnormal extra-axial fluid collections. Mastoid air cells and visualized portions of the paranasal sinuses are clear. No acute bony findings. IMPRESSION: Negative non-contrast CT head examination for acute finding. Above detailed findings are stable from short interval August [address] abdomen: FINDINGS: The lung bases are clear.Small hiatal hernia. The liver, spleen, pancreas, adrenal glands and kidneys are within normal limits. No bowel obstruction, free air, free fluid or abscess. Sigmoid diverticulosis coli is present without diverticulitis. Significant stool is retained proximal to this level in the colon. The appendix is not identified as a discrete structure, however, no secondary findings of appendicitis are identified. No evidence of significant lymphadenopathy. Moderate lumbosacral degenerative changes. IMPRESSION: Sigmoid diverticulosis is present. No evidence of diverticulitis. Significant stool retention is seen in the colon particularly the right colon. Chest x-ray: COMPARISON: Chest Single View dated 08/13/2020 FINDINGS: Portable technique limits examination quality. The lungs are grossly clear. The heart is normal in size. No displaced fractures. IMPRESSION: No acute intrathoracic process suspected. Physical Exam: GENERAL: Patient alert, cooperative. Vital signs: Stable HEENT: head is normocephalic and atraumatic. Extraocular muscles are intact. P upils are equal, round, and reactive to light and accommodation. Nares appeared normal. Dry mucous membranes NECK: supple. No carotid bruits. No lymphadenopathy or thyromegaly. LUNGS: clear to auscultation. No crackles or wheezes are heard. HEART: regular rate and rhythm, no appreciable gallops, rubs, murmurs or extra heart sounds ABDOMEN: soft, nontender, and nondistended. Positive bowel sounds. No hepatosplenomegaly was noted. EXTREMITIES: Patient with history of CVA, left-sided weakness noted. NEUROLOGIC: Patient alert, oriented to time and place. Decrease strength from prior CVA to the left side. SKIN: normal color, turgor and temperature. No ulcerations or rashes noted. Impression: Falls with slight confusion, toxic encephalopathy likely related to UTI Acute renal insufficiency likely dehydration History of CVA with left-sided residual weakness GERD with hiatal hernia Constipation Hypertension Anemia of chronic disease Plan: Falls with slight confusion, toxic encephalopathy likely related to UTI: Patient will be admitted for further evaluation and treatment. Patient recently treated with Bactrim. Will need to obtain urine culture results from PCP. Will start IV Rocephin. Patient given IV fluid bolus in the emergency room. We will continue with IV fluids. Blood, urine cultures obtained. Will continue to monitor closely. Need to obtain restart home medication. Will monitor and trend lab. DVT prophylaxisLovenox. Will monitor closely. Anticipate improvement over the next 24 hours. Acute renal insufficiency likely dehydration: Continue with IV fluids. Will monitor and trend lab. Electrolyte protocol in place. History of CVA with left-sided residual weakness: Continue DVT prophylaxis. Provide folic acid. Continue aspirin. Will need to restart home medication. Patient reports that she was recently hospitalized and sent to [facility] for skilled placement. She was there for 2 weeks. She will likely require home health and physical therapy at discharge. Physical therapy to evaluate and assess. GERD with hiatal hernia: Provide Protonix. Constipation: Will provide stool softener and medication as needed. Hypertension: Need to obtain and restart home medication Anemia of chronic disease: Will monitor and check lab closely. Code Status: Full code DVT prophylaxis: Lovenox Advanced Care Planning-30 minutes: Anticipate home at discharge. Patient likely requires home health and physical therapy. Physical therapy to assess ambulation. Patient recently hospitalized and received a skilled placement recently. Discharge Plan: Home Plan to discharge in: 72 Hours - Advance Directives Does patient have a Living Will: No Does patient have a Durable POA for Healthcare: No - Code Status/Comfort Care Code Status Assessed: Yes (Patient is full code) Time Spent Managing Pts Care (In Minutes): 55
[2020-08-18] MEDS ORDERED: CEFTRIAXONE/SWI 1gm 1 GM/10 ML SYR ONE (17:06)
[2020-08-18] MEDS: NA CHLORIDE 0.9% 1,000 ML IV SCH ×2 (18:13→19:30)
[2020-08-18] MEDS ORDERED: HYDRALAZINE HCL 20 MG/ML VIAL IV PRN (18:13)
[2020-08-18] MEDS ORDERED: ACETAMINOPHEN 500 MG TAB PO PRN (18:13)
[2020-08-18] MEDS ORDERED: ONDANSETRON 4 MG/2 ML VIAL IV PRN (18:13)
[2020-08-18 19:00] VITALS: BMI 36.2
[2020-08-18] MEDS: ENOXAPARIN 40 MG/0.4 ML SQ SCH (19:30)
[2020-08-18] MEDS: TRAMADOL HCL 50 MG TAB PO PRN (20:16)
[2020-08-18] MEDS ORDERED: ATORVASTATIN 40 MG TAB PO SCH (21:00)
--- NOTE | 2020-08-19 05:56 | P.PN ---
Subjective Date of Service: 08/19/20 Primary Care Provider: Randy Romero NP Chief Complaint: Falls, confusion Subjective: Improving, Doing well Physical Examination - Vital Signs Temperature: 97.4 F Blood Pressure: 115/68 Pulse: 88 Respirations: 18 Pulse Ox (%): 98 - Studies Laboratory Data (last 24 hrs) 08/18/20 11:23: Sodium 139, Potassium 4.1, BUN 18, Creatinine 1.01, Glucose 83 08/18/20 11:23: WBC 20.40 H* D, Hgb 10.4 L, Hct 31.9 L D, Plt Count 285 Assessment & Plan Discharge Plan: Home Plan to discharge in: 24 Hours Physician Review Additional Text: CT head: COMPARISON: Head Brain Wo Cont dated 08/13/2020 TECHNIQUE: Axial 5 mm thick images of the head were obtained without IV contrast. All CT scans are performed using dose optimization technique as appropriate and may include automated exposure control or mA/KV adjustment according to patient size. FINDINGS: No intracranial hemorrhage, mass, edema or shift of mid-line structures. No acute cortical based infarction identified. No cortical edema or sulcal effacement. There is a large amount of gliosis involving the right frontal and parietal lobes from remote CVA. This matches the prior study. Patient has underlying mild to moderate atrophy. Ventricles are in proportion to the amount of volume loss. Arterial calcifications are present. No abnormal e xtra-axial fluid collections. Mastoid air cells and visualized portions of the paranasal sinuses are clear. No acute bony findings. IMPRESSION: Negative non-contrast CT head examination for acute finding. Above detailed findings are stable from short interval August [address] abdomen: FINDINGS: The lung bases are clear.Small hiatal hernia. The liver, spleen, pancreas, adrenal glands and kidneys are within normal limits. No bowel obstruction, free air, free fluid or abscess. Sigmoid diverticulosis coli is present without diverticulitis. Significant stool is retained proximal to this level in the colon. The appendix is not identified as a discrete structure, however, no secondary findings of appendicitis are identified. No evidence of significant lymphadenopathy. Moderate lumbosacral degenerative changes. IMPRESSION: Sigmoid diverticulosis is present. No evidence of diverticulitis. Significant stool retention is seen in the colon particularly the right colon. Chest x-ray: COMPARISON: Chest Single View dated 08/13/2020 FINDINGS: Portable technique limits examination quality. The lungs are grossly clear. The heart is normal in size. No displaced fractures. IMPRESSION: No acute intrathoracic process suspected. Physical Exam: GENERAL: Patient alert, cooperative. Vital signs: Stable HEENT: head is normocephalic and atraumatic. Extraocular muscles are intact. Pupils are equal, round, and reactive to light and accommodation. Nares appeared normal. NECK: supple. No carotid bruits. No lymphadenopathy or thyromegaly. LUNGS: clear to auscultation. No crackles or wheezes are heard. HEART: regular rate and rhythm, no appreciable gallops, rubs, murmurs or extra heart sounds ABDOMEN: soft, nontender, and nondistended. Positive bowel sounds. No hepatosplenomegaly was noted. EXTREMITIES: Patient with history of CVA, left-sided weakness noted. NEUROLOGIC: Patient alert, oriented to time and place. Decrease strength from prior CVA to the left side. SKIN: normal color, turgor and temperature. No ulcerations or rashes noted. Impression: Falls with slight confusion, toxic encephalopathy likely related to UTI Acute renal insufficiency likely dehydration History of CVA with left-sided residual weakness GERD with hiatal hernia Constipation Hypertension Anemia of chronic disease Plan: Falls with slight confusion, toxic encephalopathy likely related to UTI: Patient back to baseline. Renal function improved. SPoke to PCP yesterday. No UA was done recently when Bactrim was given. Will have PT assess patient. If doing well from a PT perspective and she is eating well then I will plan to DC home as early as today. Will continue to monitor for now. She was recently discharged from SNF. Will also discuss with son. She will need to continue with HH/PT at home. Will have social service arranged. Will need to obtain home meds. Acute renal insufficiency likely dehydration: Improved. Encourage oral intakeContinue with IV fluids. Will monitor and trend lab. Electrolyte protocol in place. History of CVA with left-sided residual weakness: Continue DVT prophylaxis. Provide folic acid. Continue aspirin. Will need to restart home medication. Patient reports that she was recently hospitalized and sent to [facility] for skilled placement. She was there for 2 weeks. She will require home health and physical therapy at discharge. Physical therapy to evaluate and assess. Await their recommendations. GERD with hiatal hernia: Provide Protonix. Constipation: Will provide stool softener and medication as needed. Hypertension: Obtain and verify home meds Anemia of chronic disease: Will monitor and check lab closely. Code Status: Full code DVT prophylaxis: Lovenox Advanced Care Planning-30 minutes: Anticipate home at discharge. Patient will continue with home health and physical therapy. Physical therapy to assess ambulation. Patient recently hospitalized and received a skilled placement recently. Time Spent Managing Pts Care (In Minutes): 55
[2020-08-19 06:12] LABS: Absolute Lymphocytes (CBC) 4.1 K/uL (0.7-4.9); Basophils % 0.7 % (0-1.3); Hematocrit 31.8 % (36.0-45.0); Lymphocytes % 33.6 % (15.3-44.8); MPV 9.7 fL (7.6-11.3); RBC Red Blood Cell Count 3.38 M/uL (3.86-4.86)
[2020-08-19 06:24] LABS: Magnesium 2.1 mg/dL (1.8-2.4); Potassium 3.7 mmol/L (3.5-5.1); Thyroid Stimulating Hormone 2.15 uIU/mL (0.360-3.740)
--- NOTE | 2020-08-19 07:45 | EKG ---
Test Date: 2020-08-18 Test Time: 12:12:56 Furniture Mover Driver: KAROLYN MEASUREMENT RESULTS: Intervals: Rate: 106 MO: 180 QRSD: 82 QT: 354 QTc: 470 [place]: P: 74 MO: 180 QRS: 51 T: 53 INTERPRETIVE STATEMENTS: Sinus tachycardia Otherwise normal ECG Compared to ECG 08/13/2020 10:54:54 Myocardial infarct finding no longer present Electronically Signed On 08-19-20 07:42:47 CDT by James Chahal
[2020-08-19] MEDS: NA CHLORIDE 0.9% 1,000 ML IV SCH ×2 (08:22→20:31)
[2020-08-19] MEDS: PANTOPRAZOLE 40MG TABLET PO SCH (08:22)
[2020-08-19] MEDS: ATORVASTATIN 10 MG TAB PO SCH (08:22)
[2020-08-19] MEDS: FOLIC ACID 1 MG TABLET PO SCH (08:22)
[2020-08-19] MEDS: TRAMADOL HCL 50 MG TAB PO PRN ×2 (08:23→14:27)
[2020-08-19] MEDS: ENOXAPARIN 40 MG/0.4 ML SQ SCH (08:23)
[2020-08-19] MEDS: THIAMINE HCL 100 MG TABLET PO SCH (08:23)
[2020-08-19] MEDS ORDERED: POTASSIUM CL SA 10 MEQ TAB PO ONE (09:00)
[2020-08-19] MEDS: CEFTRIAXONE/SWI 1gm 1 GM/10 ML SYR IVP SCH (09:16)
[2020-08-19] MEDS: HYDROCODONE/APAP 7.5/325 MG TAB PO PRN (16:20)
[2020-08-19] MEDS: AMITRIPTYLINE 50 MG TAB PO SCH (20:29)
[2020-08-20 05:46] LABS: Absolute Lymphocytes (CBC) 3.2 K/uL (0.7-4.9); Basophils % 0.9 % (0-1.3); Hematocrit 33.1 % (36.0-45.0); Lymphocytes % 32.3 % (15.3-44.8); MPV 9.8 fL (7.6-11.3); RBC Red Blood Cell Count 3.53 M/uL (3.86-4.86)
--- NOTE | 2020-08-20 05:53 | P.PN ---
Subjective Date of Service: 08/20/20 Primary Care Provider: Randy Romero NP Chief Complaint: Falls, confusion Subjective: Improving, Doing well Physical Examination - Vital Signs Temperature: 98.0 F Blood Pressure: 112/56 Pulse: 100 Respirations: 16 Pulse Ox (%): 92 - Studies Laboratory Data (last 24 hrs) 08/19/20 05:43: Sodium 141, Potassium 3.7, BUN 13, Creatinine 0.67, Glucose 62 L, Magnesium 2.1 08/19/20 05:43: WBC 12.30 H D, Hgb 10.5 L, Hct 31.8 L, Plt Count 259 Assessment & Plan Discharge Plan: Home Plan to discharge in: 24 Hours Physician Review Additional Text: CT head: COMPARISON: Head Brain Wo Cont dated 08/13/2020 TECHNIQUE: Axial 5 mm thick images of the head were obtained without IV contrast. All CT scans are performed using dose optimization technique as appropriate and may include automated exposure control or mA/KV adjustment according to patient size. FINDINGS: No intracranial hemorrhage, mass, edema or shift of mid-line structures. No acute cortical based infarction identified. No cortical edema or sulcal effacement. There is a large amount of gliosis involving the right frontal and parietal lobes from remote CVA. This matches the prior study. Patient has underlying mild to moderate atrophy. Ventricles are in proportion to the amount of volume loss. Arterial calcifications are present. No abnormal extra-axial fluid collections. Mastoid air cells and visualized portions of the paranasal sinuses are clear. No acute bony findings. IMPRESSION: Negative non-contrast CT head examination for acute finding. Above detailed findings are stable from short interval August [address] abdomen: FINDINGS: The lung bases are clear.Small hiatal hernia. The liver, spleen, pancreas, adrenal glands and kidneys are within normal limits. No bowel obstruction, free air, free fluid or abscess. Sigmoid diverticulosis coli is present without diverticulitis. Significant stool is retained proximal to this level in the colon. The appendix is not identified as a discrete structure, however, no secondary findings of appendicitis are identified. No evidence of significant lymphadenopathy. Moderate lumbosacral degenerative changes. IMPRESSION: Sigmoid diverticulosis is present. No evidence of diverticulitis. Significant stool retention is seen in the colon particularly the right colon. Chest x-ray: COMPARISON: Chest Single View dated 08/13/2020 FINDINGS: Portable technique limits examination quality. The lungs are grossly clear. The heart is normal in size. No displaced fractures. IMPRESSION: No acute intrathoracic process suspected. Physical Exam: GENERAL: Patient alert, cooperative. Vital signs: Stable HEENT: head is normocephalic and atraumatic. Extraocular muscles are intact. Pupils are equal, round, and reactive to light and accommodation. Nares appeared normal. NECK: supple. No carotid bruits. No lymphadenopathy or thyromegaly. LUNGS: clear to auscultation. No crackles or wheezes are heard. HEART: regular rate and rhythm, no appreciable gallops, rubs, murmurs or extra heart sounds ABDOMEN: soft, nontender, and nondistended. Positive bowel sounds. No hepatosplenomegaly was noted. EXTREMITIES: Patient with history of CVA, left-sided weakness noted. NEUROLOGIC: Patient alert, oriented to time and place. Decrease strength from prior CVA to the left side. SKIN: normal color, turgor and temperature. No ulcerations or rashes noted. Impression: Falls with slight confusion, toxic encephalopathy related to UTI with noted 1 out of 4 blood cultures positive Acute renal insufficiency likely dehydration History of CVA with left-sided residual weakness GERD with hiatal hernia Constipation Anemia of chronic disease Plan: Falls with slight confusion, toxic encephalopathy related to UTI with noted 1 out of 4 blood cultures positive: Patient has done well. Continue Rocephin. Awaiting final results of blood culture and urine culture. Will consider discharge later today if results of cultures come back. Discharge dependent on results. We will add lactobacillus twice daily Acute renal insufficiency likely dehydration: Overall improved. Encourage oral intake. History of CVA with left-sided residual weakness: Continue DVT prophylaxis. Provide folic acid 1 mg daily. Continue aspirin 81 mg. Patient reports that she was recently hospitalized and sent to [facility] for skilled placement. She was there for 2 weeks. Continue with home health at discharge. Physical therapy to evaluate and assess. Await their recommendations. GERD with hiatal hernia: Continue Prilosec at discharge. Constipation: Continue stool softenerdocusate as needed. Anemia of chronic disease: Will monitor and check lab closely. Chronic pain: Continue with tramadol 50 mg as needed. Patient also takes Elavil 100 mg at bedtime. Code Status: Full code DVT prophylaxis: Lovenox Advanced Care Planning-30 minutes: Anticipate home at discharge. Patient will continue with home health and physical therapy. Physical therapy to assess ambulation. Patient recently hospitalized and received a skilled placement recently. Time Spent Managing Pts Care (In Minutes): 55
[2020-08-20 06:07] LABS: Magnesium 2.2 mg/dL (1.8-2.4); Potassium 4.1 mmol/L (3.5-5.1)
[2020-08-20] MEDS ORDERED: DOCUSATE NA 100 MG CAP PO PRN (08:07)
[2020-08-20] MEDS: THIAMINE HCL 100 MG TABLET PO SCH (09:30)
[2020-08-20] MEDS: PANTOPRAZOLE 40MG TABLET PO SCH (09:30)
[2020-08-20] MEDS: ATORVASTATIN 10 MG TAB PO SCH (09:30)
[2020-08-20] MEDS: FOLIC ACID 1 MG TABLET PO SCH (09:30)
[2020-08-20] MEDS: LACTOBACILLUS/ACIDOPHILUS TAB PO SCH ×2 (09:30→19:46)
[2020-08-20] MEDS: CEFTRIAXONE/SWI 1gm 1 GM/10 ML SYR IVP SCH (09:30)
[2020-08-20] MEDS: ENOXAPARIN 40 MG/0.4 ML SQ SCH (09:30)
[2020-08-20] MEDS ORDERED: LORAZEPAM 0.5 MG TABLET PO PRN (17:25)
[2020-08-20] MEDS: HYDROCODONE/APAP 7.5/325 MG TAB PO PRN (19:45)
[2020-08-20] MEDS: AMITRIPTYLINE 50 MG TAB PO SCH (19:46)
--- NOTE | 2020-08-21 07:58 | P.DS ---
Admission Date: 08/19/20 Discharge Date: 08/21/20 Primary Care Provider: Randy Romero NP Disposition: ROUTINE DISCHARGE Discharge Condition: GOOD Reason for Admission: Falls, confusion Consultations: None Procedures: CT head: COMPARISON: Head Brain Wo Cont dated 08/13/2020 TECHNIQUE: Axial 5 mm thick images of the head were obtained without IV contrast. All CT scans are performed using dose optimization technique as appropriate and may include automated exposure control or mA/KV adjustment according to patient size. FINDINGS: No intracranial hemorrhage, mass, edema or shift of mid-line structures. No acute cortical based infarction identified. No cortical edema or sulcal effacement. There is a large amount of gliosis involving the right frontal and parietal lobes from remote CVA. This matches the prior study. Patient has underlying mild to moderate atrophy. Ventricles are in proportion to the amount of volume loss. Arterial calcifications are present. No abnormal extra-axial fluid collections. Mastoid air cells and visualized portions of the paranasal sinuses are clear. No acute bony findings. IMPRESSION: Negative non-contrast CT head examination for acute finding. Above detailed findings are stable from short interval August [address] abdomen: FINDINGS: The lung bases are clear.Small hiatal hernia. The liver, spleen, pancreas, adrenal glands and kidneys are within normal limits. No bowel obstruction, free air, free fluid or abscess. Sigmoid diverticulosis coli is present without diverticulitis. Significant stool is retained proximal to this level in the colon. The appendix is not identified as a discrete structure, however, no secondary findings of appendicitis are identified. No evidence of significant lymphadenopathy. Moderate lumbosacral degenerative changes. IMPRESSION: Sigmoid diverticulosis is present. No evidence of diverticulitis. Significant stool retention is seen in the colon particularly the right colon. Chest x-ray: COMPARISON: Chest Single View dated 08/13/2020 FINDINGS: Portable technique limits examination quality. The lungs are grossly clear. The heart is normal in size. No displaced fractures. IMPRESSION: No acute intrathoracic process suspected. Medical problem list: Falls with slight confusion, toxic encephalopathy related to UTI Acute renal insufficiency likely dehydration History of right frontal parietal nonhemorrhagic CVA with left-sided residual weakness Hyperlipidemia GERD with hiatal hernia Constipation Anemia of chronic disease Brief History of Present Illness: 69-year-old female with history of CVA with left-sided residual weakness, GERD, hypertension. Patient presented with some confusion and increased fall and weakness. Patient denied any fever, dysuria, chest pain or shortness of breath. She denied any nausea, vomiting. She reports that she was recently hospitalized in April for CVA. She was sent to [facility] for skilled placement. Since then she has been living with her son. Most recently patient was seen by her PCP. She was told that she had a UTI. She was sent home with Bactrim. She reports she was only able to take 2 days of medication. Since then increasing falls noted. She was brought into the ER for further evaluation. Patient evaluated emergency room. Patient appears slightly dehydrated. Vital signs stable. Patient afebrile. White count 23, hemoglobin 10.4. Platelet count 284. Sodium 139, potassium 4.1. Creatinine 1.01 with a GFR 55. Chest x- ray unremarkable. CT head unremarkable. CT abdomen showed some constipation. Hiatal hernia noted. Procalcitonin negative. Covid test negative. Patient was admitted for observation. Hospital Course: Patient presented with falls, slight confusion. Patient recently treated for UTI with Bactrim. Toxic encephalopathy was likely related to the UTI. Patient was given IV fluids and antibiotic therapy with improvement. White count elevated now improved. Renal sufficiency also noted upon admission but improved with IV hydration. Patient has done well. 1 out of 4 blood cultures were positive but this was determined to be a contaminant. At discharge patient back to baseline. At discharge she will continue with Levaquin 500 mg daily for 5 more days to complete treatment for UTI. Patient will also be provided lactobacillus 3 times a day for at least 10 days. UTI prevention will be provided. Recommend follow-up with PCP within 1 week to follow-up his hospitalization. Recommend to recheck labBMP to monitor resolution. Patient with history of right frontoparietal lobe nonhemorrhagic CVA with left-sided residual weakness and hyperlipidemia. Patient suffered a CVA back in April. She had been transferred to [place] then to skilled facility. She is back at home now. At discharge patient back to her baseline. At discharge will recommend to continue aspirin 81 mg daily, Lipitor 10 mg daily, and folic acid 1 mg daily. Fall precautions in place. Recommend follow-up with PCP to further monitor and adjust. Patient with history of GERD and hiatal hernia. At discharge she will continue with Prilosec 40 mg daily. Education will be provided. Patient with constipation. At discharge she may continue with docusate daily as needed. Patient with history of chronic pain. Patient previously on ibuprofen. Recommend to discontinue medication due to her history of GERD and anemia. At discharge she may continue with her medications Elavil 100 mg at bedtime and tramadol 50 mg 3 times a day as needed for pain. Recommend follow-up with her PCP to further monitor and address. Patient with anemia of chronic disease. Overall stable. This can be followed up as an outpatient with her PCP. Vital Signs/Physical Exam: Temp Pulse Resp BP Pulse Ox 97.2 F 83 18 112/70 94 08/21/20 04:00 08/21/20 04:00 08/21/20 04:00 08/21/20 04:00 08/21/20 04:00 General: Alert, In no apparent distress, Oriented x3, Cooperative HEENT: Atraumatic Neck: Supple Respiratory: Clear to auscultation bilaterally, Normal air movement Cardiovascular: Normal pulses, Regular rate/rhythm Gastrointestinal: Normal bowel sounds Musculoskeletal: No erythema, No tenderness, No warmth Integumentary: No tenderness/swelling Neurological: Normal speech, Normal tone, Normal affect, Abnormal strength (Left-sided residual weakness) Laboratory Data at Discharge: WBC 9.80 K/uL (4.3-10.9) D 08/20/20 05:20 Hgb 10.7 g/dL (12.0-15.0) L 08/20/20 05:20 Hct 33.1 % (36.0-45.0) L 08/20/20 05:20 Plt Count 264 K/uL (152-406) 08/20/20 05:20 Sodium 141 mmol/L (136-145) 08/20/20 05:28 Potassium 4.1 mmol/L (3.5-5.1) 08/20/20 05:28 BUN 13 mg/dL (7-18) 08/20/20 05:28 Creatinine 0.68 mg/dL (0.55-1.3) 08/20/20 05:28 Glucose 70 mg/dL (74-106) L 08/20/20 05:28 Magnesium 2.2 mg/dL (1.8-2.4) 08/20/20 05:28 Home Medications: Amitriptyline HCl 100 mg PO DAILY 08/18/20 Atorvastatin Calcium [Lipitor*] 10 mg PO DAILY 08/18/20 Omeprazole [Prilosec] 40 mg PO DAILY 08/18/20 Tramadol HCl [Ultram] 50 mg PO TID PRN 08/18/20 Aspirin [Aspirin EC 81 MG] 81 mg PO DAILY #30 tablet. 08/21/20 Docusate [Colace Cap*] 100 mg PO DAILY PRN #30 cap 08/21/20 Folic Acid 1 mg PO DAILY #30 tablet 08/21/20 Lactobacillus Acidophilus [Acidophilus Lactobacilli] 1 each PO TID #30 capsule 08/21/20 Levofloxacin [Levaquin] 500 mg PO DAILY #5 tablet 08/21/20 New Medications: Lactobacillus Acidophilus [Acidophilus Lactobacilli] 1 each PO TID #30 capsule Aspirin [Aspirin EC 81 MG] 81 mg PO DAILY #30 tablet. Docusate [Colace Cap*] 100 mg PO DAILY PRN #30 cap PRN Reason: Constipation Folic Acid 1 mg PO DAILY #30 tablet Levofloxacin [Levaquin] 500 mg PO DAILY #5 tablet Physician Discharge Instructions: Patient presented with falls, slight confusion. Patient recently treated for UTI with Bactrim. Toxic encephalopathy was likely related to the UTI. Patient was given IV fluids and antibiotic therapy with improvement. White count elevated now improved. Renal sufficiency also noted upon admission but improved with IV hydration. Patient has done well. 1 out of 4 blood cultures were positive but this was determined to be a contaminant. At discharge patient back to baseline. At discharge she will continue with Levaquin 500 mg daily for 5 more days to complete treatment for UTI. Patient will also be provided lactobacillus 3 times a day for at least 10 days. UTI prevention will be provided. Recommend follow-up with PCP within 1 week to follow-up his hospitalization. Recommend to recheck labBMP to monitor resolution. Patient with history of right frontoparietal lobe nonhemorrhagic CVA with left- sided residual weakness and hyperlipidemia. Patient suffered a CVA back in April. She had been transferred to [facility] to [facility]. She is back at home now. At discharge patient back to her baseline. At discharge will recommend to continue aspirin 81 mg daily, Lipitor 10 mg daily, and folic acid 1 mg daily. Fall precautions in place. Recommend follow-up with PCP to further monitor and adjust. Patient with history of GERD and hiatal hernia. At discharge she will continue with Prilosec 40 mg daily. Education will be provided. Patient with constipation. At discharge she may continue with docusate daily as needed. Patient with history of chronic pain. Patient previously on ibuprofen. Recommend to discontinue medication due to her history of GERD and anemia. At discharge she may continue with her medications Elavil 100 mg at bedtime and tramadol 50 mg 3 times a day as needed for pain. Recommend follow-up with her PCP to further monitor and address. Patient with anemia of chronic disease. Overall stable. This can be followed up as an outpatient with her PCP. Diet: AHA Activity: Fall precautions Followup: Sherrie Romero NP [Primary Care Provider] - Time spent managing pt's care (in minutes): 55
[2020-08-21 09:20] VITALS: BP 101/56; TEMP 97.6
[2020-08-21 09:40] VITALS: O2SAT 95
== END 2020-08-21 09:51 | disposition home health service (06) | DRG 689 ==
LOC: ER 10:58 → ERHOLD 15:48 → 2ND 17:27 → OBSVTOIN 08-19 12:28
PROVIDERS: ADMIT Family Medicine; ATTEND Family Medicine
DX: N39.0 Urinary tract infection, site not specified (principal); G92 Toxic encephalopathy; I69.354 Hemiplegia and hemiparesis following cerebral infarction affecting left non-dominant side; N28.9 Disorder of kidney and ureter, unspecified; E86.0 Dehydration; E78.5 Hyperlipidemia, unspecified; K21.9 Gastro-esophageal reflux disease without esophagitis; K44.9 Diaphragmatic hernia without obstruction or gangrene; K59.00 Constipation, unspecified; D63.8 Anemia in other chronic diseases classified elsewhere; K57.90 Diverticulosis of intestine, part unspecified, without perforation or abscess without bleeding; G89.29 Other chronic pain; Z91.81 History of falling; Z20.822 Contact with and (suspected) exposure to COVID-19
CPT/HCPCS: 36415; 70450; 71045; 74177; 80048; 81003; 81015; 83605; 83735; 84145; 84439; 84443; 85025; 87040; 87086; 87088; 87205; 93005; 96361; 96374; 97112; 97116; 97161; 99285; G0378; G0390; J0696; J1650; J2405; J7030; Q9967; U0003

== ENCOUNTER 2020-09-30 14:22 | Emergency (ER) | payer OTHER ==
--- OUTSIDE RECORDS SUMMARY | 2020-09-30 14:28 | XMS REPORT | Continuity of Care Document ---
:1950 [facility] Organization [facility] t Address [address] [place] [address] Care Team Providers Name Role Phone Opal [...] Date Sour ce Number MEDICAID - MEDICAID [id number] 2019 SOLOMON Hart MGD CARESUPERIOR 00:00:00 - Medica l [id number]/ Ce nter /2019-Present [facility] - [id number] 2020 SOLOMON Hart MEDICARE MGD 00:00:00 - Medical CAREUNITED MEDICARE Cente r [id number] 2020-P resent MEDICAIDMEDICAID OF [id number] 2020 SOLOMON Hart [id number] 2020 00:00:00 - Medical -PresentMedicaid Center Problems Condition Condition Condition Status Onset Resolution Last Treating Co mments Source Name Details Category Date Date Treatment Clinician Date Leukocytos Leukocytos Disease Active [facility] - [facility]: Medical 00 [place] Diarrhea Diarrhea Disease [facility] - presumed presumed 00:00: Medica l infectious infectious 00 Ce nter origin origin Esophagiti Esophagiti Disease Active [facility] - 00:[facility]: Medical 00 [place] Stroke Stroke Disease Active [facility] 00 Center Allergies, Adverse Reactions, Alerts Allergy Allergy Status Severity Reaction(s) Onset Inactive Treating Comm ents Source Name Type Date Date Clinician Gabapent Propsis Active Other (See [facility] ty to Comments) [facility]06 [facility] - adverse 00:00: Medical reaction 00 [place] Social History Social Habit Start Date Stop Date Quantity Comments Source Sex Assigned At [facility] Cigarettes smoked 2020-05-09 2020-05-09 [facility] - current (pack per 00:00:00 00:00:00 [facility] day) - Reported Cigarette 2020-05-09 2020-05-09 [facility] - pack-years 00:00:00 00:00:00 [facility] Tobacco use and 2020-05-09 2020-05-09 Never used [facility] - exposure 00:00:00 00:00:00 [facility] Alcohol intake 2020-05-09 2020-05-09 Ex-drinker [facility] es - 00:00:00 00:00:00 (finding) [facility] Smoking Status Start Date Stop Date Source Current every day smoker 2020-05-09 00:00:00 [facility] Medications Ordered Filled Start Stop [...] QD Take [address] [facility] [address] (FOLVITE) 1 - 05-03 tablets (5 L u[facility] - MG tablet 00:00: 23:59 mg total) Me dical 00 :00 by mouth Center daily for 30 days. polyethylen 2020- No 17g QD Take [address] [address] e glycol - 05-03 by mouth [facility] - (GLYCOLAX) 00:00: 23:59 [...] 40 MG 19:04: daily. Medical capsule 52 [place] atorvastati 2020- No 10mg QD Take [address] [facility] (LIPITOR) -03 17- by mouth [place] - 10 MG 10:29: 00:00 daily. Medical tablet 12 :00 Center atorvastati Yes 10mg QD Take [address] [facility] (LIPITOR) -02 tablet (10 Guerda kes - 10 MG 00:00: mg total) Medical tablet 00 by mouth Center daily. senna 2020- No 8.6mg QD Take [address] (SENOKOT) - 05- tablet [facility] - 8.6 mg 00:00: 23:59 (8.6 mg Medical tablet 00 :00 total) by Center mouth nightly for 30 days. Vital Signs Vital Name Observation Time Observation Value Comments Source Systolic blood 2020-05-13 15:30:00 96 mm[Hg[facility] Diastolic blood 2020-05-13 15:30:00 64 mm[Hg] [facility] Heart rate 2020-05-13 15:30:00 89 /min [facility] Body temperature 2020-05-13 15:30:00 36.44 Faye [facility] Respiratory rate 2020-05-13 15:30:00 18 /min [facility] Oxygen saturation in 2020-05-13 15:30:00 96 /min [facility] - Arterial blood by Medical Ce nter Pulse oximetry Body height 2020-05-06 00:21:00 157.5 cm [facility] Body weight 2020-05-06 00:21:00 90.719 kg [facility] BMI 2020-05-06 00:21:00 36.58 kg/m2 [facility] Procedures Procedure Date / Time Performed Performing Clinician [facility] e SARS-COV2/RT-PCR ([facility] & 2020-05-13 09:26:00 Brenna, [facility] - REF LABS) [facility] CBC W/PLT COUNT & AUTO 2020-05-13 04:52:00 Marlene, David Hebert [facility] COMPREHENSIVE METABOLIC 2020-05-13 04:52:00 Marlene, David Hebert [facility] CBC W/PLT COUNT & AUTO 2020-05-12 05:44:00 MarleneDavid [facility] METABOLIC 2020-05-12 05:44:00 Marlene, David Hebert [facility] CBC W/PLT COUNT & AUTO 2020-05-11 05:06:00 MarleneDavid [facility] METABOLIC 2020-05-11 05:06:00 Marlene, David Hebert [facility] HEPATITIS C PCR, 2020-05-10 16:21:00 Marlene, David Hebert [facility] HEPATITIS C GENOTYPE 2020-05-10 16:21:00 Marlene, David Hebert [facility] HEPATITIS PANEL, ACUTE 2020-05-10 05:46:00 Marlene, David Hebert [facility] CBC W/PLT COUNT & AUTO 2020-05-10 05:46:00 Marlene, Davidagustina Hebert [facility] 2020-05-10 05:46:00 Marlene, Davidagustina Hebert [facility] US ABDOMEN LIMITED 2020-05-09 14:42:00 Marlene, David Hebert [facility] CBC W/PLT COUNT & AUTO 2020-05-09 12:01:00 Marlene, David Hebert [facility] METABOLIC 2020-05-09 12:01:00 Marlene, Davidagustina Hebert [facility] (CELLAVISION MANUAL DIFF) 2020-05-09 12:01:00 Marlene, David [address] rd [facility] CT BRAIN WITHOUT IV 2020-05-09 00:01:00 Guillermo Domingo [facility] REPORT OF PROCEDURE - 2020-05-08 08:50:18 Maude Varghese [facility] ENDOSCOPY [facility] TISSUE EXAM 2020-05-08 08:18:00 Maude Varghese [facility] UPPER ENDOSCOPY,BIOPSY 2020-05-08 08:00:00 Maude Varghese [facility] CBC W/PLT COUNT & AUTO 2020-05-08 04:46:00 SOLOMON Ceja S [facility] 2020-05-08 04:46:[address] [facility] (CELLAVISION MANUAL DIFF) 2020-05-08 04:46:[address] [facility] CTA BRAIN 2020-05-07 18:15:00 Jack Cintron [facility] URINALYSIS W/ REFLEX 2020-05-07 17:53:[address] [facility] URINE CULTURE [facility] ECHO W CONTRAST & DOPPLER 2020-05-07 15:40:57 Jack Cintron ay [facility] XR CHEST 1 VIEW PORTABLE 2020-05-07 15:15:[address] [facility] BLOOD CULTURE 2020-05-07 13:38:00 Jack Cintron [facility] CBC W/PLT COUNT & AUTO 2020-05-07 04:34:00 Brenna [facility] - DIFFERENTIAL [facility] COMPREHENSIVE METABOLIC 2020-05-07 04:34[facility]FF) 2020-05-07 04:34:00 Brenna, CH I [facility] ECG 12-LEAD 2020-05-06 15:16:23 Jack Cintron [facility] SARS-COV2/RT-PCR ([facility] & 2020-05-06 13:[facility] CBC W/PLT COUNT & AUTO 2020-05-06 06:51:00 Brenna [facility] - DIFFERENTIAL [facility] COMPREHENSIVE METABOLIC 2020-05-06 06:51:00 Abida PROTHROMBIN TIME/INR 2020-05-06 06:51:00 [facility] LIPID PANEL 2020-05-06 06:51:00 [facility]EM[facility]1C 2020-05-06 06:51:00 [facility] VITAMIN B12 AND FOLATE 2020-05-06 06:51:00 [facility] RPR 2020-05-06 06:51:00 [facility] C-REACTIVE PROTEIN 2020-05-06 06:51:00 [facility] TSH/FREE T4 IF INDICATED 2020-05-06 06:51:00 [facility] PERIPHERAL BLOOD SMEAR - 2020-05-06 06:51:00 Brenna [facility] - PATHOLOGIST REVIEW [facility] 2020-05-06 06:51:[address] [facility] IRON, TIBC, % SAT. 2020-05-06 06:51:[address] [facility] - (WITHOUT FERRITIN) Medical Cente r (CELLAVISION MANUAL DIFF) 2020-05-06 06:51:00 Brenna, I [facility] Plan of Care Planned Activity Planned [...] - Test 00:00:00 TO MEDICARE) [code = Medical Center Medicare IPPE (WELCOME TO MEDICARE)] Future Scheduled 2017 PNEUMOCOCCAL 65+ [facility]RS [facility] - Test 00:00:00 (1 of 1 - Medical Center [id number] PCV13) [code = PNEUMOCOCCAL 65+ YRS (1 of 1 - [id number] PCV13)] Future Scheduled 2002 SHINGLES VACCINES ([address] [facility] - Test 00:00:00 of 2) [code = SHINGLES Medic al Center VACCINES (1 of 2)] Future Scheduled 1971-09-23 DTAP/TDAP/TD [facility]ACCINES [facility] Test 00:00:00 (1 - Tdap) [code = Medical C enter DTAP/TDAP/TD VACCINES (1 - Tdap)] Future Scheduled 1964 COVID-19 VACCINE (1) [facility] - Test 00:00:00 [code = COVID-[address] VACCINE (1)] Future Scheduled [address] [facility] - Test 00:00:00 malignant neoplasm of Medica l Center breast (procedure) [code = 850709866] Future Scheduled [address] [facility] [place] [facility] - Test 00:00:00 malignant neoplasm of Medica l Center colon (procedure) [code = 083444867] Results Test Description Test Time Test Comments Results Result Comments Source Hepatitis C genotype 2020-05-16 09:09:00 Test Item Value Reference Range Interpretation Comme nts HCV Genotype, 1a The method us ed in this test is RT-PCR and LiPA (test code = reversehyb ridization (Line Probe) of the 5' 8948712) UTR and corereg ion of the HCV genome. The analytical perf ormance characteristics of thisassay have been determined by [facility]. The modifications h ave not beencleared or approved by the FDA. Thi s assay has beenvalidated pursuant to the CLIA regulations and isused for clinical pu rposes. For additional information, pl ease refer tohttp://educat ion.[employer] /faq/HCVGenotyp ing(This link id being provided for information al/educational purposes only.) KAYLA (test code = Performing Lab KAYLA) *QDID [facility] [address] [place] [address] Joseph Nuno MD [facility] (Asymptomatic ONLY)2020-05-13 17:07:00 Test Item Value Reference Range Interpretation Comments SARS-COV2/RT-PCR Negative Not Detected, (test code = Negative, See 20086-2) external report for linked test SARS-COV-2 [facility] PERFORMING [facility] (test code = 77138-7) KAYLA (test code = Negative result for [...] of the Act. Fact Sheet for Healthcare Providers:https://www.[employer]/sites/default/f paxton/product/documents/F act_Sheet_HC_Providers_L gph_MRDX-RjH-2.pdf Fact Sheet for Healthcare Patients:https://www.Güdp[employer]/sites/default/fi les/product/documents/Fa ct_Sheet_Patients_Lyra_S ARS-CoV-2.pdf Performing Laboratory:[place] [address], [place] [address] [place], [place] [address]ARS-COV2/RT-PCR ([facility] & REF LABS)2020-05-13 17:07:00 Test Item Value Reference Range Interpretation Comments SARS-COV2/RT-PCR (test Negative Not Detected, Negative, code = 9708508) See external report for linked test SARS-COV-[address] [facility] (test code = 5473199) Negative result for this test determines that [...] 564(g) of the Act.Fact Sheet for Healthcare Providers:https://www.[employer]/sites/default/files/product/documents/Fact_Shee t_SB_Xutolyvxu_Uyrs_GSVS-VeY-7.pdfFact Sheet for Healthcare Patients:https://www.[employer]ach/sites/default/files/product/ documents/Ddob_Jblmm_Eqrymjjr_Neiu_QHDE-ZxG-0.pdfPerforming Laboratory:[facility], [place] [address]FVU with platelet count + automated [id number] 05:41:00 Test Item Value Reference Range Interpretation Comments WBC (test code = 6690-2) 15.2 See_Comment H [A utomated message] The system Cask generated this result transmitted ref erence range: 3.5 - 10 .5 K/L. The refe rence range was not u sed to interpret this result as normal/abnor mal. RBC (test code = 789-8) 3.68 See_Comment L [Au tomated message] The system Cask generated this result transmitted ref erence range: 3.93 - 5 .22 M/L. The refe rence range was not u sed to interpret this result as normal/abnor mal. MCHC (test code = 786-4) 33.0 See_Comment [A utomated message] The system Cask generated this result transmitted ref erence range: [...] See_Comment [Aut omated message] 777-3) The system Cask generated this result transmitted ref erence range: 150 - 45 0 K/CU MM. The referen ce range was not u sed to interpret this result as normal/abnor mal. MPV (test code = 11.9 fL 9.4-12.3 26469-4) nRBC (test code = 413) 0 See_Comment [Aut omated message] The system Cask generated this result transmitted ref erence range: [...] H [Aut omated message] 670) The system Cask generated this result transmitted ref erence range: 1.56 - 6 .13 K/L. The refe rence range was not u sed to interpret this result as normal/abnor mal. # Lymphs (test code = 4.78 See_Comment H [Auto mated message] 414) The system Cask generated this result transmitted ref erence range: 1.18 - 3 .74 K/L. The refe rence range was not u sed to interpret this result as normal/abnor mal. # Monos (test code = 1.19 See_Comment H [Autom ated message] 415) The system [employer] generated this result transmitted ref erence range: 0.24 - 0 .36 K/L. The refe rence range was not u sed to interpret this result as normal/abnor mal. # Eos (test code = 416) 0.12 See_Comment [Au tomated message] The system Cask generated this result transmitted ref erence range: 0.04 - 0 .36 K/L. The refe rence range was not u sed to interpret this result as normal/abnor mal. # Baso (test code = 417) 0.03 See_Comment [A utomated message] The system Cask generated this result transmitted ref erence range: 0.01 - 0 .08 K/L. The refe rence range was not u sed to interpret this result as normal/abnor mal. Immature 0 % 0-1 Granulocytes-Relative (test code = 2801) Lab Interpretation (test Abnormal code = 16854-7) [facility] [id number] 05:41:00 Test Item Value Reference Range Interpretation Comments Protein, Total (test 6.1 See_Comment [Autom ated code = 2885-2) message] The system which generated this result transmit herbie reference range : 6.0 - 8.3 gm/dL . The reference range was not u sed to interpret th is result as normal/abnormal . Albumin (test code = 3.1 g/dL 3.5-5 L 28202-8) Alkaline Phosphatase 98 U/L 40-150 (test code = 6768-6) Total Bilirubin (test 0.4 mg/dL 0.2-1.2 code = 1975-2) Sodium (test code = 138 meq/L 150-063 1722-2) Potassium (test code 3.7 meq/L 3.5-5.1 = 2823-3) Chloride (test code = 102 meq/L 98-107 2074-0) CO2 (test code = 27 meq/L 22-29 2027-9) BUN (test code = 10 mg/dL 7-21 3094-0) Creatinine (test code 0.71 mg/dL 0.57-1.25 = 2160-0) Glucose (test code = 113 mg/dL 70-105 H 2345-7) Calcium (test code = 8.8 mg/dL 8.4-10.2 79976-9) AST (test code = 36 U/L 5-34 H 1920-8) ALT (test code = 29 U/L 6-55 1742-6) EGFR (test code = 82 mL/min/1.73 [place] [address]-3) NOT ACCURATE CREATININE CLEARANCE IN PREDICTING GLOMERULAR FILTRATION RATE . ESTIMATED GFR I S NOT APPLICABLE FOR DIALYSIS PATIEN TS. GARZA (test code = KAYLA) Wheat Grower ID - EDASI Lab Interpretation Abnormal (test code = 81248-0) [facility] W/PLT COUNT & AUTO [id number] 05:41:00 Test Item Value Reference Range Interpretation [...] (BEAKER) (test code = 2801) COMPREHENSIVE METABOLIC [id number] 05:41:00 Test Item Value Reference Range Interpretation [...] S NOT APPLICABLE FOR DIALYSIS PATIEN TS. Wheat Grower ID - EDASIBlood Culture - Routine (Right Venipuncture)2020-05-12 16:02:00 Test Item Value Reference Range Interpretation Comments Result (test code = No growth in 5 days 6463-4) [facility] [id number] 16:02:00 Test Item Value Reference Range Interpretation Comments CULTURE (BEAKER) (test No growth in 5 days code = 1095) COMPREHENSIVE METABOLIC [id number] 08:07:00 Test Item Value Reference Range Interpretation [...] S NOT APPLICABLE FOR DIALYSIS PATIEN TS. Wheat Grower ID - PIAYA LCBC W/PLT COUNT & AUTO [id number] 06:56:00 Test Item Value Reference Range Interpretation [...] (test code = 2801) Hepatitis C PCR, [id number] 21:55:00 Test Item Value Reference Range Interpretation Comments HCV PCR, Quantitative [id number] See_Comment H [Auto mated (test code = 02898-3) messag e] The system which generated this result transmitted reference range : <15 IU/mL. The reference range was not used to interpret this result as normal/abnormal . KAYLA (test code = KAYLA) This test uses a Real-Time Polymerase Chain Reaction (RT-PCR) methodology and was performed using MONICA Ampliprep/MONICA TaqMan HCV test kit version 2.0 ([employer]). Reportable range for this assay is 15 - 100,000,000 IU per mL (1.18 - 8.00 Log IU/mL). Lab Interpretation Abnormal (test code = 86584-8) [facility], [id number] 21:55:00 Test Item Value Reference Range Interpretation Comments HCV NUMERIC RESULT (BEAKER) [id number] IU/mL <15 H (test code = 2700) This test uses a Real-Time Polymerase Chain Reaction (RT-PCR) methodology and was performed using MONICA Ampliprep/MONICA TaqMan HCV test kit version 2.0 ([employer]).Reportable range for this assay is 15 - 100,000,000 IU per mL (1.18 - 8.00 Log IU/mL).CBC W/PLT COUNT & AUTO [id number] 06:02:00 Test Item Value Reference Range Interpretation [...] (BEAKER) (test code = 2801) COMPREHENSIVE METABOLIC [id number] 06:00:00 Test Item Value Reference Range Interpretation [...] S NOT APPLICABLE FOR DIALYSIS PATIEN TS. Wheat Grower ID - MAYA BHepatitis panel, [id number] 07:46:00 Test Item Value Reference Range Interpretation Comments Hep A IgM (test code = Nonreactive Nonreactive 62395-8) Hep B C IgM (test code = Nonreactive Nonreactive 20062-5) Hepatitis C Ab (test Reactive Nonreactive A code = 65012-7) HBsAg Screen (test code Nonreactive Nonreactive = 5195-3) KAYLA (test code = KAYLA) Wheat Grower ID - VALENCIA M Lab Interpretation (test Abnormal code = 62860-1) [facility] PANEL, [id number] 07:46:00 Test Item Value Reference Range Interpretation Comments HEPATITIS A IGM ANTIBODY (BEAKER) Nonreactive Nonreactive (test code = 498) HEPATITIS B CORE IGM ANTIBODY Nonreactive Nonreactive (BEAKER) (test code = 645) HEPATITIS C ANTIBODY (BEAKER) Reactive Nonreactive A (test code = 367) HEPATITIS B SURFACE ANTIGEN (2) Nonreactive Nonreactive (BEAKER) (test code = 2585) Wheat Grower ID - VALENCIA MCOMPREHENSIVE METABOLIC [id number] 07:17:00 Test Item Value Reference Range Interpretation [...] S NOT APPLICABLE FOR DIALYSIS PATIEN TS. Wheat Grower ID - RIK LCBC W/PLT COUNT & AUTO [id number] 06:57:00 Test Item Value Reference Range Interpretation [...] (BEAKER) (test code = 2801) U/S, ABDOMINAL, [id number] 22:12:00Abdomen limited area? Add comment if clarification is needed.->Right upper quadrantReason for exam :->transaminitis [facility] : 1950 Sex: FFINAL REPORT [...] MDReport Verified Date/Time: 05/09/2020 22:12:28 Reading Location: [address] Reading Room US abdomen [id number] 22:12:00 Interface, External Ris In - 05/09/2020 [...] Garcia MDReport Verified Date/Time: 122:12:28 Reading Location: [address] Reading [facility] [id number] 16:45:00 Test Item Value Reference Range Interpretation Comments Case Report (test code Surgical Pathology = 104) Report Case: [id number] Authorizing Provider: Maude Varghese MD Collected: 05/08/2020 08:18 AM Ordering Location: [address] Received: 05/09/2020 08:27 AM Service Pathologist: Jud Werner MD Specimen: Biopsy, Gastric, random gastric bx DIAGNOSIS (test code = t9tezDCnZTJsv1jgVBCmyA 3220) FuZzEwMzNcZnRuYmpcdWMx IHtccnRmMVxlcGljOTIwMl bdktZdJFBjpQPuC2Vlddbj LXcgPG2fFY3ltNllsMDaeR ZpFWCjVfWpv5wet798wKBr r3avLYLSzpptdZf4sAnrF6 3qx2D4NntuG91ilRKwQHfj bGFpblxmczIwIEEuIFNUT0 6RJ9bnPHRFIgXTLQKLMZ4H X3rmmZEgPO1jZCHNIMRYMl jUVWxAGKHNBVKPEDxJS2BV SVRJUywgTUlMRFxwYXIgLS TcSP2RKEuIEVQGCBjWNNrc TUVUQVBMQVNJQSwgRFlTUE wAI5nJDM8OPAMQTmZRXv6J QSBJREVOVElGSUVEXHBhci NzDNVfYc7hJTHZXDFZNrFS JFYIDMGRPI6GBJIKXVbEZT 4SE8NLCFKPMsMKUINIZSqI MQNLFE2LJZvITiCFJQ2sV0 RBUlJZIFNUQUlOXHBhciAg KKWgwn42KMC8XpXhq5O3VX O6NICaULCky0wsBJIebKEl ZzEwMzNcZnRuYmpcdWMxXG BzPnCea5qyc602ePAbv1og KRZmHkE3hJRpUXFvrSIhN5 39FVMmDDqpd0huw1XnFLTj rPDjb9Y9DPBWdigdwBi3yT joM21fe4D1AegpN3fzQZUu YEYnW4BgCJ9uESYzUwo5BV N1ZZO9FYAySMGtK4UzUA5b YSEcjPIdZGp1h8grpKukRC UzPMS5e2wtOGhbiyCnUW4w tr6xvJq6z8zsfmUxAQLiOH MjsMAFJXIbS8TvjMdqCc5l wQg3zQydWxeyEFK4Bzi7TS 7zas77yvb2tCifTCDashce CzP7GOygVCWtehlyVRu6HL gbOCWjaFH4ZQTtcTHcO3Xc TZSuYE5vxsz8HGF1GWqsXO IcDtB6IBNlsBVhEVUqxKzg XZxlk256IPW2SwHlMK6qN9 Pla0V1nE1txDKcOAYdbJVe HzZaYXIhho0gaIXrPGyli2 VmTUR6ryK3zDPbyAYxAIVz BhT1CVzgDZ9ntn65OCCeMI Q5si7dkNPscApdsrCyxGNr WLvdA1OdRAGrt565CRXyY7 RnNCHps1A0lsAzZkXvMTSn jKG3ttF8PTHeUB0ohzxzt2 mmXYgdQQlxSHEwsyC9xlB6 SHSovLEhM7OezN8eOORjFJ 7ywdrvm3tyHYP0WYhmZRLb TXI9KqCjSBXan7Nyzwv7Je Qtg8QpfWHjCZjqB72nm830 MLKdmpQhE8gpuTYnmitryA HdpmjwCUqkkuR5KJLjYLvu bvwjLLVkABsyR6ikJhUwOM LcuBcpKNblh4JnAXHxTJMs FdGwxBWjKMGiJaz8YICvmE KzZMYgNmLaG2sblttiXrFR OXEgh8idY6oelLTIcYRiC3 QgUGhvbmUgTGluZTogODMy KDG9JF91RAmgEBTsut27 CPT Code(s) (test code f2pmtBImMWDbyPK9JuTiCU = 3357) Aan6uhj2TqsBAeuIDlDRip lADbmyNikw95uZG2wJ69OU 1xJONnSeH4CWHmndP4Ucq0 EQNiRZIunEXgL727f7uaz3 jdgzZbiDF7yXqvZUBiDVAr YWluXGZzMjAgODgzMDUsID u8MtEaLGPfrq7= CLINICAL HISTORY (test w4amvTKvTXUguPF0IaDmHY code = 3356) Cmr6jmj7WfiJGhwDSvHIin qPGwcqVbpr18vCH9tA44LB 9dRLCkKgH4EGZxowF6Plp9 IPGvQRVfvMTxH799u2ivp2 dsewYxyEU9cGpnYRDqZOXr YWluXGZzMjAgZXNvcGhhZ2 IvkQN0aXrag7LkhE6iWTSi cn0= SPECIMEN SOURCE (test g0ubbWQwCLUhfSZ3OsRaDG code = 3377) Eyh3qxs2KnnXFjbZLdLZjf yXUdzpWsjl64eJT7mC76SX 8dSMQrNhD4CLWiruL0Ana3 BPFoFYSdqGFlZ950p1lpi1 vvoyJitZZ8qBshOUDaVWKj EOcoEGJaKsVrQ4KveFVyW9 xwYXJ9 GROSS DESCRIPTION (test u5dqzODvNNJqkLJlRqKvEN code = 3366) HcIEEcn5boFXCeuVXsQjOw MzNcZnRuYmpcdWMxXGRlZm Qpp4iza094uKGqn0zeEHBv VtN3zXCcIKUejWHwJ672p6 sah7ejpnKzzOD0NKRaAOP5 FNkkvtJzhjS1VHpftMJlIh Z8HNiowjJhAFkovtMycfEp Dum0CWNxX307EIU5oNoll7 llAVG0BHLoCTJkNlIwMp7f hHEtK213RKUyCTXVMAAesP w1RRQvlhEovvZwzOUXl453 F643o9ieZDPkvkMezZdCrt efp8euG110UALwrGCbyeTd KmNcGBEqfIRyeFO4AUBpHB 0ekvjkGfMjWQ1zrcwxZaMh YV9wfln1VpKmSR1mjypdOb AnVAveHBKlqhzeJPOfg1Qy oyluZL1vZ8Igb1R2pF0rxI WbAKPeyWLaZaDoBMWdun8y dSSxZMlqo9XqYHY1ueG5tJ AdnRHaCQTiSX09Vkllf4Mo NgjcAVF3SUNleiXtq3Mmm9 aqFtMvilNoY9cfE3GfOWTw NAQhXOJgLtDgzhRab1Nhh5 ZakTGqmHv4j8ajXMKgEKSa hOqaw3iaIFJ6CDIfB4K1sG Alb1xhTAbuKKEunPY9eoxp YDpeOKIughO1juxxKNovKX PrnEE3rnkkOAadCJKeGiV2 yimcRDfaCPKmVVR1VLbdu8 62XTO5IYcjEcvgRBiuYQVz bmNvbnRccGduZGVjXHBsYW luXHBsYWluXGYwXGZzMjRc wSnzoXgmdP1hAqQdYiOwBN ehFG8kITDjQ3nrfPBwVHVa CBAfS3yzSpOevP1qhIxtHX xsbnIpEZKbZ2QeeuAcOPhv ADTlbr5ygBnnXJalBpPrGZ QgdGhlIHBhdGllbnQncyBu IR1jINWsG7Cqa6Qaq58sne FmFwBhYAVhOPXqH1PaiYOs XvKpuD4sk4ahHTcnTSXmFP 4tNTrzUS0jVUldXW9hMBAi ECWoka7pjH9cJZWjf6H0WK ScygOhlTBlxPL2tLpukVAr jpKywNo3PAEyCBWajyQrj0 OmpDi9dIOaYQngNHFgnH8q mP1pSFWsBQQgdgmhLGWjZZ lsYXIgQXJndWVsbGVzLCBQ ULnxCVXbKZGOV4EiUIFepr 0= MICROSCOPIC DESCRIPTION b8wkhTCtHFKbhBR9OyUcZW (test code = 3371) Ggp7ute7EdnTFgeARwXWeq dURyzgCbqc80rCN2uP82VD 6rRHMiKfQ6NVNjxyQ9Gzv0 NAVlTVFrfBIqE646l7ims4 moeqZcpGY5mPlkWMTuNQQw RCkmWZNfLqFaTTIoWl3nfU VkLlxwYXJ9 SPECIAL STUDIES (test a0exaUEgUFPjd5cmBHTiuM code = 3376) FuZzEwMzNcZnRuYmpcdWMx KZsrgdPrQGtnn3IoH2YtBj AwMFxhbnNpXGRlZmxhbmcx UFVoUQJ5jiRbLQIqVCdgDX LkIDqwKd8ldOEdyJeyVcEa QUCwd8yvkcYBpksjaUb0r9 djFURiNqU2oNWkWZdaE7se vlXfhBTrY5QluXSuxGx3x6 eoVkXmXiL9uMInFRrlR0nt fgPmwMEjMKRnFId4aD44WD MhqY7jsOErLFhjlxXaOaI5 IZskACTuYeR2LBAqtKLjPJ WhE8nuTDPxNWbtVASrHFvq dVKjBRE3aXyrp2Z6xIRmlS WgeUuoQaGzXcFwCeILd3Ro NKv8zBxdR9NsFJHaKfV7jK QgUGFyYWdyYXBoIEZvbnQ7 nJyaprWxl82kaSIhRJMuEY ErZcOlrCbnETDuSQRYy6Rq vMglLHR1yRn6jXerTjxiXQ R0Sal6RD5jsu53smq7iLmy RRBsbgpbPrI0ATgyKSGirq ptFXy9YEkwWBIgoPN4CVSb nZEeJ1ZtGYQtJZ4imoq6PE L1RIytBCRpLvZ5GPHcrVFa YMGsrYyqFXkrk512LIS2Xf HrOP6sQ7Yxs2Z3qI6xlAWg CYAcoWBkQsJpODLtpf4pbX CsDIkpa7QtMIO4euI3mJGc yCQqGYBaMK38Bnhmm4ZrWy ygz4DsT12orSD6QNess1sl MP7eCmK6inKbZIfqo7xfyC 2mXsN6CHgcQY0kSJ9gHCDr rY8ygezaJZFdKaQjrufyBV ZrwCizmjDwRu1juZvdLEW2 DDxgG3nqnU6bLdJ5WCxtZ5 jioD2vEGu4AOjycAV5VSDw fL1gJX7vdxqpc0ptFBgsRO iaWKGwotI6zhP5BCDfiSIa U8PvyY6tJEMkTH4jrqdqt0 jcAQZ5MNqmPBIwHSY8FiYp OKKap1Fqdkb5ToZzb1GmoT CeVSmrB65mb894RBTcjsKx T7ycvPXzstcmwMPhiqytEV duteR5ZJPjPFAzDXwkOLFn XGZzMjJcbGFuZzEwMzNcaG ljaFxmMVxkYmNoXGYxXGxv B7oiNfEpD1EwUDLdJkKrGU hvKMrabSKkoOZwbRL7dF6k CX0pMOXcdTSgA2GhBRZzqd OlfEYeBUR6sBObvGTbIB3a UKmkiRLnl4jps5OqQ0tggD lubAY2QP2lFMJbZTGmQDbf m4IbkO2yXfpadELbxqgfXO xmczIyXGxhbmcxMDMzXGhp X1ryIhFwLYHxuFggPOkjj4 NoXGYxXGNmMlxmczIyXGx0 cmNoXHBhclxwYXJccGxhaW 8uDuChUzQaHjsuJT2pGZGz I0qluRSxEWZcXFQbI7qhWk CanM0biLlpMGmoXpVnJoQx DsCOg511yu6tNMBgtASozo QBwMDwqF6bPYuaPZpnJQln vAEnXOwgt7hgQZKjq0a1jO MxQLRnaxGlv3lbMTxvxwEc KURnyNXxrJUnZBSjy70lBF djnIdxdMyiHAZkk9GixYhp w4TgMsPeVObop5UlR71ofP JvbCBzbGlkZXMgcnVuIGFs e14bj8dbVWPwFgF9aQYqxJ S1wPSahVScc5GzvSujHACl n3drTJNntl6rpowckLNdq2 LwsB7fdydbRQktpXLsotMu CSYvv1x3sDToJOVsQZDqHR dzfZn8HRMht842lw6ftoF9 uZPvDUL7CYkwIKNuYVJsuc UgZXZhbHVhdGVkXHBsYWlu XGYxXGZzMjJcbGFuZzEwMz NcaGljaFxmMVxkYmNoXGYx PPdrG5evQjQpP7LdHRRdPu QfqKWoT4xsoOWpMCHqIImv XGYxXGZzMjJcbGFuZzEwMz NcaGljaFxmMVxkYmNoXGYx HVohP2qdVsDbP0WlINMsGe IgIFxwbGFpblxmMVxmczIy ZKfcykcpAKZtTVkrU1rpIf VjDPGgbIzuLZkau5VaTUGz CFLfGfoaijUzHIu1ckCsQI BhclxwbGFpblxmMVxmczIy YMxrhrltEJIbHHvoQ7etYy VyGCNepTcqAVett4AzEASp XGNmMlxmczIyIEltbXVub2 ikm3ZdC4pfrFdvtGP5OOAb S3sxcJTbdNJ4RDT2pN9hAV drnxEbMHZfb1RxIAVhCSNe ItG3aC6vVEW1AqMLhGmyIF BsYWluXGYxXGZzMjJcbGFu ZzEwMzNcaGljaFxmMVxkYm VzBZNsBHjhA0duNbElN2Pk LPDoRbWhuHnuYWbiOYf5Ej xwbGFpblxmMVxmczIyXGxh xcyeHXPeRNucA0exMtLgXI DhvExkUYhkr4QiCNSrQPOi MlxmczIyIHMgTWVkaWNhbC DDBL04GTPjQUObqSpjsE0i hTJKZNKvzdP4w8S6PTboGG ObEHs5ENtfyxQpLUZfeM5e ZIGbTX5zQMp2xrNhCNCfk8 ZbAG9aNMRujFFyKZG3AXIf o1DlD7Evn9AbRPOdIQWkhi 5glpHhGpLQpGIzOJNnwq44 OSXbTB4lL1afRUKyWYChwo YeeWDjp4KsGLDrhJV0bDIh UA3KZiPDm21cPJBnZOPRgf AzHBJeeEeprSI2dtS5yU1o LiBUaGUgRkRBIGhhcyBkZX Gzyt9ztvZmGDMzCSHxl6Dk lKWeaRZzjrWrQ6Yit0FgCK Yxts25HDwgfTQeul85GV5w P0Eiw0BeqT6wBNyjIORbz0 NcvVMoqUZfDOYjf1YsY3ka foubDXedyAVybP1bCAPsME c7EXDwz7UoNBUdv4PxQpRz vwFuJGAsPWQjSIYlzI60KK O6jJxwgMlghoDhKL1vOEEq bnObCDBkQBYuiC4tKJmiju MwPGNlhsN4w3Q2WFvvYVVg wyHbJcstOBC9isGurfP5bH NqR1zhpanlBQeaXDJbq4Mo rT6ytCXLbQIgl2VwfLAirJ OLlGNpED7prdBrTV5xXVI5 ODggKENMSUEtODgpIGFzIH T3TRooOndqMLS0exMlQVHx k2VrCXfqC4ozD54qgEdteB b2vCAedRxpjYUqkWCwEJIb lfO8v7B4ZZXcs8VcvftyZY BsYWluXGYyXGZzMjJcbGFu ZzEwMzNcaGljaFxmMlxkYm HlOWRoWBfvQ5onDlOaDbOr KieoHYM3lC== Gross assessment was [facility] performed at ([facility], = 2777) Department of Pathology, [address] [place] [address], Technical component was [facility] performed at ([facility], = 1858) Department of Pathology, [address] [place] [address], Professional component [facility] was performed at ([facility], code = 2777) Department of Pathology, [address] [place] [address], [facility] CenterTISSUE [id number] 16:45:00Surgical Pathology Report Case: [id number] Authorizing Provider: Maude Varghese MD Collected: 05/08/2020 08:18 AM Ordering Location: [address] Received: 05/09/2020 08:27 AM Service Pathologist: Jud Werner MD Specimen: Biopsy, Gastric, random gastric bx A. STOMACH, RANDOM BIOPSY- CHRONIC INACTIVE GASTRITIS, MILD- NO INTESTINAL METAPLASIA, DYSPLASIA OR CARCINOMA IDENTIFIED- NO HELICOBACTER PYLORI LIKE ORGANISMS IDENTIFIED ON WARTHIN STARRY STAIN Signing Patho logist Direct Phone Line: [phone] signed by Jud Werner MD on 05/09/2020 at 4:45 [id number], [id number] thickeningGastricReceived in formalin labeled the patient's name, [...] evaluated Immunohistochemistry technical testing was performed at [facility], Pathology Laboratory where it was developed and [...] qualified to perform high complexity clinical laboratory testing.[facility], Department of Pathology, [address] [place] [address], [facility], [facility], [address] [place] [address], [facility]mpzdSaint [facility], Department of Pathology, [address] [place] [address], IRSOIWZVLLHVZ METABOLIC [id number] 13:06:00 Test Item Value Reference Range Interpretation [...] S NOT APPLICABLE FOR DIALYSIS PATIEN TS. Wheat Grower ID - HAROON COperator ID - HAROON CManual [id number] 12:59:00 Test Item Value Reference Range Interpretation [...] = 3438) KAYLA (test code = KAYLA) Wheat Grower ID - Zaria Awais comments: Slide comments: Lab Interpretation Abnormal (test code = 56008-9) [facility] W/PLT COUNT & AUTO [id number] 12:59:00 Test Item Value Reference Range Interpretation [...] CONCENTRATION Adequate (CELLAVISION)(BEAKER) (test code = 3438) Wheat Grower ID - Zaria Ernandez comments: Slide comments:Peripheral Blood Smear - Path [id number] 11:42:00 Test Item Value Reference Range Interpretation Comments RBC Morphology (test Macrocytosis code = 0026) WBC Morphology (test See comment code = 4127) Platelet Morphology No ClumpingNo (test code = 2848) Satellitosis Pathologist Review WBC demonstrate a (test code = 4150) leukocytosis predominantly composed of mature neutrophils with occasional hypersegmented forms. No circulating blast identified. Lymphocytes demonstrates reactive and few atypical forms. Pathologist: (test Neri Del Cid MD code = 2849) (electronic signature) [facility] CenterPERIPHERAL BLOOD SMEAR - PATHOLOGIST REVIEW 2020-05-09 11:42:00 Test Item Value Reference Range Interpretation Comments RBC MORPHOLOGY Macrocytosis (BEAKER) (test code = 2846) WBC MORPHOLOGY See comment (BEAKER) (test code = 2847) PLT MORPHOLOGY No Clumping (BEAKER) (test code = 2848) PLT MORPHOLOGY No Satellitosis (BEAKER) (test code = 03947) PERIPHERAL SMR REVIEW WBC demonstrate a (BEAKER) (test code = leukocytosis 2640) predominantly composed of mature neutrophils with occasional hypersegmented forms. No circulating blast identified. Lymphocytes demonstrates reactive and few atypical forms. [id number] Neri Del Cid MD (BEAKER) (test code = (electronic signature) 2849) CT, BRAIN, WITHOUT [id number] 03:55:00Unlisted Reason for Exam - Click Yes and Enter Reason Below->No [facility] 1950 Sex: FFINAL [...] Signed: Keila Tiradoeport Verified Date/Time: 05/09/2020 03:55:47 [facility] brain without IV [id number] 03:55:00Interface, External Ris In - 05/09/2020 3:58 AM CDTFINAL REPORT EXAM: CT head without contrast. CLINICAL HISTORY: Stroke, follow up COMPARISON: Head CT 05/07/2020. TECHNIQUE: CTimages of the head were obtained without intravenous contrast. This exam was performed according [facility] departmental dose optimization program which includes automated [...] No midline shift or hydrocephalus. Signed: Keila Tirado MDReport Verified Date/Time: 05/09/2020 03:55:47 [facility]O [id number] 07:37:00 Test Item Value Reference Range Interpretation [...] CONCENTRATION Adequate (CELLAVISION)(BEAKER) (test code = 3438) Wheat Grower ID - Juanis OverholtUser comments: Slide comments:COMPREHENSIVE METABOLIC [id number] 05:55:00 Test Item Value Reference Range Interpretation [...] S NOT APPLICABLE FOR DIALYSIS PATIEN TS. Wheat Grower ID - SILVERIO COLMENARES2021-03-27 19:23:00Unlisted Reason for Exam - Click Yes and Enter Reason Below->YesUnlisted Reason for Exam->Changing neurological symptoms. Known CVA [facility] 1950 Sex: FFINAL [...] Keila Tirado MDReport Verified Date/Time: 05/07/2020 19:23:01 CTA [id number] 19:23:00 Interface, External Ris In - 05/07/2020 [...] Keila Tirado MDReport Verified Date/Time: 05/07/2020 19:23:01 [facility] CenterUrinalysis w/Microscopic + Reflex to [id number] 18:22:00 Test Item Value Reference Range Interpretation Comments Color, UA (test code Yellow = 5778-6) Clarity, UA (test Clear code = 5767-9) Specific Cinebar, UA 1.016 1.001-1.035 (test code = 5811-5) pH, UA (test code = 6.0 5.0-8.0 5803-2) Protein, UA (test 10 mg/dL Negative A code = 25653-5) Glucose, UA (test Negative Negative code = 365) Ketones, UA (test Trace Negative A code = 2514-8) Bilirubin, UA (test Negative Negative code = 62667-4) Blood, UA (test code Negative Negative = 65796-3) Nitrite, UA (test Negative Negative code = 5802-4) Leukocytes, UA (test Trace Negative A code = 5799-2) Urobilinogen, UA 0.2 mg/dL 0.2-1 (test code = 21195-3) RBC, UA (test code = <1 See_Comment [Autom ated 53633-1) message] The system which generated this result [...] 6 See_Comment [Automate d (test code = 81326-5) messag e] The system which generated this result transmitted reference range : /HPF. The reference range was not used to interpret this result as normal/abnormal . Specimen Source (test code = 2795) KAYLA (test code = KAYLA) Wheat Grower ID - [auto]Wheat Grower ID - tech Lab Interpretation Abnormal (test code = 68000-7) [facility] CenterURINALYSIS W/ REFLEX URINE [id number] 18:22:00 Test Item Value Reference Range Interpretation [...] = 516) SOURCE(BEAKER) (test code = 2795) Wheat Grower ID - [auto]Wheat Grower ID - techECHO W CONTRAST & [id number] 16:38:14Ejection FractionSLEH ECHO HEARTLAB MKCKESSON CPACSInterface, External Ris In - 05/07/2020 4:38 PM CDTTransthoracic Echocardiography Report (TTE) Demographics Patient Name MONCHO, Date of Study 05/07/2020 BELLO Gender Female Visit Number [id number] Race Unknown Room Number 2239 Number Date of 1950 Referring Physician YVETTE RUST Age 69 year(s) Complex Commercial Litigation Paralegal Viri Brito, RCSAnalyst Lalito Arvizu Interpreting Royer [...] LVOT CO:8.98 l/min LVOT CI: 4.7 l/min/m^2CH[facility] CenterRAD, CHEST, 1 VIEW, NON [id number] 15:43:00Reason for exam:->SOBShould this be performed at the bedside?->Yes [facility] : 1950 Sex: FFINAL REPORT INDICATION: SOB COMPARISON: None TECHNIQUE: Single frontal view of the chest. FINDINGS: Lungs and pleura: Clear lungs. No effusion.Heart and mediastinum: Normal heart size. Unremarkable mediastinal contours.Osseous structures: No acute abnormality.Other: None. IMPRESSION: No acute intrathoracic abnormality. Signed: JR Ahmadi Robert MDReport Verified Date/Time: 05/07/2020 15:43:48 Reading Location: [address] Neuro Reading Room XR chest 1 view portable / [id number] 15:43:00Interface, External Ris In - 05/07/2020 3:46 PM CDTFINAL REPORT INDICATION: SOB COMPARISON: None TECHNIQUE: Single frontal view of the chest. FINDINGS: Lungs and pleura: Clear lungs. No effusion.Heart and mediastinum: Normal heart size. Unremarkable mediastinal contours.Osseousstructures: No acute abnormality.Other: None. IMPRESSION: No acute intrathoracic abnormality. Signed : JR Ahmadi Robert MDReport Verified Date/Time: 05/07/2020 15:43:48 Reading Location: [address] Neuro Reading Room [facility] CenterECG 12 [id number] 10:48:32Interface, External Ris In - 05/07/2020 10:48 AM CDTVentricular Rate 98 BPMAtrial Rate 98 BPMP-R Interval 140 msQRS Duration 84 msQ-T Interval 378 msQTC Calculation(Sandy) 482 msP [place] 60 degreesR [place] 29 degreesT [place] 28 degreesNormal sinus rhythmNormal ECGNo previous ECGs availableConfirmed by MD Ana, Chasidy ([id number]) on 05/07/2020 10:48:30 [facility]CBC W/PLT COUNT & AUTO [id number] 10:05:00 Test Item Value Reference Range Interpretation [...] CONCENTRATION Adequate (CELLAVISION)(BEAKER) (test code = 3438) Wheat Grower ID - Juanis OverholtUser comments: Slide comments:COMPREHENSIVE METABOLIC [id number] 05:39:00 Test Item Value Reference Range Interpretation [...] S NOT APPLICABLE FOR DIALYSIS PATIEN TS. Wheat Grower ID - DBSARS-COV2/RT-PCR ([facility])2020-05-07 01:28:00 Test Item Value Reference Range Interpretation Comments SARS-COV2/RT-PCR (test Negative Not Detected, Negative, code = 0063508) See external report for linked test SARS-COV-[address] [facility] (test code = 6546326) Negative result for this test determines that [...] Ramos SARS-CoV-2 assay.Fact Sheet for Healthcare Providers:https://www.molecular.ramos/erma/ KX_CCVM-YlU-0_AIF_Nlbf_Ypbun_99-188304.pdfFact Sheet for Healthcare Patients:https://www.molecular.ab dawit/erma/LK_OYCL-AzU-3_Vinxtft_Jpqg_Kmhsj_AU_11-430714A1.pdfPerforming Laboratory:[facility] [address] Oduiftmj0122-17-11 13:03:00 Test Item Value Reference Range Interpretation Comments Ferritin (test code = 232.07 ng/mL 5-275 2276-4) KAYLA (test code = KAYLA) Wheat Grower ID - RM Lab Interpretation (test Normal code = 76935-7) [facility] CenterFERRITIN2021-03-26 13:03:00 Test Item Value Reference Range Interpretation Comments FERRITIN (BEAKER) (test code = 232.07 ng/mL 5.00-275.00 361) Wheat Grower ID - RMIron, TIBC, % sat. (without ferritin)2020-05-06 12:42:00 Test Item Value Reference Range Interpretation Comments Iron (test code = 2498-4) 71.0 ug/dL 40-160 TIBC (test code = 2500-7) 184 ug/dL 250-450 L Iron % Saturation (test code 39 % 20-55 = 2502-3) KAYLA (test code = KAYLA) Wheat Grower ID - RM Lab Interpretation (test Abnormal code = 06919-0) [facility] CenterIRON, TIBC, % SAT. (WITHOUT FERRITIN)2020-05-06 12:42:00 Test Item Value Reference Range Interpretation Comments IRON (BEAKER) (test code = 547) 71.0 ug/dL 40.0-160.0 TOTAL IRON BINDING CAPACITY 184 ug/dL 250-450 L (BEAKER) (test code = 769) IRON % SATURATION (2) (BEAKER) 39 % 20-55 (test code = 2590) Wheat Grower ID - [id number] 12:26:00 Test Item Value Reference Range Interpretation Comments RPR (test code = 77818-8) Nonreactive Nonreactive Lab Interpretation (test code = Normal 14994-8) [facility] CenterRPR2021-03-26 12:26:00 Test Item Value Reference [...] CONCENTRATION Adequate (CELLAVISION)(BEAKER) (test code = 3438) Wheat Grower ID - Zaria Ernandez comments: Slide comments:CBC W/PLT COUNT & AUTO [id number] 10:22:00 Test Item Value Reference Range Interpretation [...] 0-0 (BEAKER) (test code = 413) Hemoglobin [id number] 09:13:00 Test Item Value Reference Range Interpretation Comments Hemoglobin A1C (test code = 4548-4) 6.1 % 4.3-6.1 Lab Interpretation (test code = Normal 19044-2) [facility] CenterHEMOGLOBIN [id number] 09:13:00 Test Item Value Reference Range Interpretation Comments HEMOGLOBIN A1C (BEAKER) (test code = 6.1 % 4.3-6.1 368) TSH/Free T4 If [id number] 08:03:00 Test Item Value Reference Range Interpretation Comments TSH (test code = 2.042 See_Comment [Automated 43295-5) message] The system which generated this result transmit herbie reference range : 0.350 - 4.940 uIU/mL. The reference range was not used to interpret this result as normal/abnormal . KAYLA (test code = KAYLA) Wheat Grower ID - EDASI Lab Interpretation Normal (test code = 23755-4) [facility] CenterVitamin B12 and [id number] 08:03:00 Test Item Value Reference Range Interpretation Comments Vitamin B12 (test 161 pg/mL 213-816 L code = 2132-9) Folate (test code = 5.10 ng/mL See_Comment L [Automa herbie 2284-8) message] The system which generated this result transmit herbie reference range : >=7.00. The reference range was not used to interpret this result as normal/abnormal . KAYLA (test code = KAYLA) Wheat Grower ID - EDASI Lab Interpretation Abnormal (test code = 22891-1) [facility] CenterTSH/FREE T4 IF [id number] 08:03:00 Test Item Value Reference Range Interpretation Comments THYROID STIMULATING HORMONE 2.042 uIU/mL 0.350-4.940 (BEAKER) (test code = 772) Wheat Grower ID - EDASIVITAMIN B12 AND [id number] 08:03:00 Test Item Value Reference Range Interpretation Comments VITAMIN B12 (BEAKER) 161 pg/mL 213-816 L (test code = 774) FOLATE (BEAKER) 5.10 ng/mL See_Comment L [Automated message] (test code = 362) The system which generated this result transmitted ref erence range: >=7.00. The reference range was not used to interpr et this result as normal/abnormal . Wheat Grower ID - EDASICOMPREHENSIVE METABOLIC [id number] 07:38:00 Test Item Value Reference Range Interpretation [...] 1092) DATA TO CALCULA TE ESTIMATED GFR. Wheat Grower ID - RIK LC-Reactive [id number] 07:31:00 Test Item Value Reference Range Interpretation Comments CRP (test code = 676) 2.02 mg/dL 0-0.5 H KAYLA (test code = KAYLA) Wheat Grower ID - RIK L Lab Interpretation (test Abnormal code = 16038-0) [facility] CenterLipid [id number] 07:31:00 Test Item Value Reference Range Interpretation Comments Triglycerides (test 82 mg/dL Specimen code = 2571-8) slightly hemolyzed Cholesterol (test 117 mg/dL Specimen code = 2093-3) slightly hemolyzed HDL (test code = 36 mg/dL 5-9) LDL Calculated (test 65 mg/dL code = 91402-3) KAYLA (test code = Triglyceride KAYLA) Reference Range: Low Risk <150 Borderline 150-199 High Risk 200-499 Very High Risk >=500 Cholesterol Reference Range: Low Risk <200 Borderline 200-239 High Risk >240 HDL Cholesterol Reference Range: Low Risk >=60 High Risk <40 LDL Cholesterol Reference Range: Optimal <100 Near Optimal 100-129 Borderline 130-159 High 160-189 Very High >=190 Wheat Grower ID - RIK Jameson [facility] CenterLIPID [id number] 07:31:00 Test Item Value Reference Range Interpretation [...] Borderline 130-159 High 160-189 Very High >=190 Wheat Grower ID - RIKLC-REACTIVE [id number] 07:31:00 Test Item Value Reference Range Interpretation Comments C-REACTIVE PROTEIN (BEAKER) (test 2.02 mg/dL 0.00-0.50 H code = 676) Wheat Grower ID - RIK LProthrombin time/[id number] 07:28:00 Test Item Value Reference Interpretation Comments Range Protime (test code = 13.9 See_Comment [Autom ated 5902-2) message] The system which generated this result transmitted reference range : 11.9 - 14.2 seconds. The reference range was not used to interpret this result as normal/abnormal . INR (test code = 1.10 See_Comment [Automated 6301-6) message] The system which generated this result [...] valves. Lab Interpretation Normal (test code = 93587-9) [facility] CenterPROTHROMBIN TIME/[id number] 07:28:00 Test Item Value Reference Range Interpretation Comments PROTIME (BEAKER) 13.9 seconds 11.9-14.2 (test code = 759) INR (BEAKER) (test 1.10 See_Comment [Automat ed message] code = 370) The system [employer] generated this result transmitted ref erence range: [...]
--- NOTE | 2020-09-30 17:45 | EDPHYS ---
Physician Documentation [facility] Name: Sherrie Kim Age: 70 yrs Sex: Female : 1950 Arrival Date: 09/30/2020 Time: 14:23 Bed DIS2 Private MD: Sherrie Romero ED Physician Adrian Adams HPI: 09/30 17:40 This 70 yrs old Female presents to ER via Ambulatory with complaints of Hand jmm Swelling, Hand Injury. 17:40 Onset: The symptoms/episode began/occurred acutely, just prior to arrival. Modifying jmm factors: The symptoms are alleviated by nothing, the symptoms are aggravated by nothing. 4-year-old female with a recent CVA the presents emerged department with ongoing left hand pain. Patient states that this has been ongoing due to multiple falls from her most recent CVA. Patient states that has been x-rayed twice, she does not believe it is fractured right complains of ongoing pain. Patient states she is attempted to wrap it with no relief. . Historical: - Allergies: 15:13 GABAPENTIN; kg 15:13 Erythromycin; kg - Home Meds: 15:13 Omeprazole Oral [Active]; atorvastatin Oral [Active]; Ibuprofen Oral [Active]; aspirin kg 81 mg Oral chew [Active]; metaxalone Oral 1 tab [Active]; - PMHx: 15:13 Cerebrovascular accident; L hand deficits; Diverticulitis; GERD; Hepatitis C; High kg Cholesterol; sciatic pain; - PSHx: 15:13 Cholecystectomy; tubal ligation; kg - Immunization history:: Adult Immunizations not up to date, Client reports having NOT received the Covid vaccine. - Social history:: Smoking status: Patient reports the use of cigarette tobacco products, smokes one-half pack cigarettes per day, Patient uses street drugs, marijuana. ROS: 17:40 Constitutional: Negative for fever, chills, and weight loss, Cardiovascular: Negative jmm for chest pain, palpitations, and edema, Respiratory: Negative for shortness of breath, cough, wheezing, and pleuritic chest pain. 17:40 MS/extremity: Positive for injury or acute deformity, pain, swelling. 17:40 All other systems are negative. Exam: 17:40 Constitutional: This is a well developed, well nourished patient who is awake, alert, jmm and in no acute distress. Head/Face: atraumatic. Eyes: EOMI, no conjunctival erythema appreciated ENT: Moist Mucus Membranes Neck: Trachea midline, Supple Chest/axilla: Normal chest wall appearance and motion. Cardiovascular: Regular rate and rhythm. No edema appreciated Respiratory: Normal respirations, no respiratory distress appreciated Abdomen/GI: Non distended, soft Back: Normal ROM 17:40 Musculoskeletal/extremity: ROM: intact in all extremities, Mild edema noted, full radial pulse appreciated, no erythema appreciated, no purulent drainage, neurovascular intact. 17:40 Skin: Appearance: Color: normal in color. 17:40 Neuro: Orientation: is normal, Mentation: is normal, Memory: is normal. 17:40 Psych: Behavior/mood is pleasant, cooperative. Vital Signs: 15:10 BP 108 / 70; Pulse 98; Resp 20; Temp 98.9(O); Pulse Ox 97% on R/A; Weight 82.55 kg (R); kg Height 5 ft. 2 in. (157.48 cm) (R); Pain 6/10; 15:10 Body Mass Index 33.29 (82.55 kg, 157.48 cm) kg MDM: 17:40 Patient medically screened. [facility] 17:43 Data reviewed: vital signs, nurses notes. Counseling: I had a detailed discussion with raf the patient and/or guardian regarding: the historical points, exam findings, and any diagnostic results supporting the discharge/admit diagnosis, the need for outpatient follow up, to return to the emergency department if symptoms worsen or persist or if there are any questions or concerns that arise at home. ED course: Patient is alert nontoxic patient does have full range of motion of her left hand, although painful, I do not suspect neurovascular injury, less than 2-second distal capillary refill, I do not currently suspect infection, patient is afebrile, skin is nonindurated. Most likely pain secondary to edema secondary to injury. Will prescribe patient medication in attempt to help relieve pain and the patient is otherwise advised to follow with hand surgery. Patient is otherwise given strict return precautions. Patient understood and agrees plan of care. Administered Medications: 17:43 Drug: HYDROcodone-acetaminophen 5 mg-325 mg 1 tabs Route: PO; em 17:52 Follow up: Response: Medication administered at discharge. em Disposition: 19:22 Co-signature as Attending Physician, Adrian Adams MD I agree with the assessment and kdr plan of care. Disposition Summary: 09/30/20 17:44 Discharge Ordered Location: Home [facility] Condition: Stable jm Diagnosis - Edema of the Left Hand [facility] Followup: jm - With: Rubio Perez MD - When: 2 - 3 days - Reason: Recheck today's complaints, Continuance of care, Re-evaluation by your physician Discharge Instructions: - Discharge Summary Sheet [facility] - Edema, [id number] [facility] Forms: - Medication Reconciliation Form [facility] - Thank You Letter [facility] - Antibiotic Education [facility] - Prescription Opioid Use [facility] Prescriptions: - orphenadrine citrate 100 mg Oral Tablet Sustained Release - take 1 tablet by ORAL route 2 times per day As needed; 20 tablet; Refills: 0, [facility] Product Selection Permitted Signatures: Adrian Adams MD MD kdr Mickail, Joel, PA PA [facility] Eduardo Conley RN RN Briana Bryant RN RN kg Corrections: (The following items were deleted from the chart) 15:17 15:13 Allergies: Aspirin; kg kg
--- NOTE | 2020-09-30 17:45 | ER ---
Nurse's Notes [facility] Name: Sherrie Kim Age: 70 yrs Sex: Female : 1950 Arrival Date: 09/30/2020 Time: 14:23 Bed DIS2 Private MD: Sherrie Romero Diagnosis: Edema of the Left Hand Presentation: 09/30 15:10 Chief complaint: Patient states: Left hand swelling, cramping x 1 wk. Coronavirus kg screen: Client denies travel out of the [place] in the last 14 days. At this time, unable to obtain information related to travel outside the [place] At this time, the client does not indicate any symptoms associated with coronavirus-19. Ebola Screen: Patient negative for fever greater than or equal to 101.5 degrees Fahrenheit, and additional compatible Ebola Virus Disease symptoms Patient denies exposure to infectious person. Patient denies travel to an Ebola-affected area in the 21 days before illness onset. Initial Sepsis Screen: Does the patient meet any 2 criteria? No. Patient's initial sepsis screen is negative. Does the patient have a suspected source of infection? No. Patient's initial sepsis screen is negative. Risk Assessment: Do you want to hurt yourself or someone else? Patient reports no desire to harm self or others. Onset of symptoms was September 23, 2020. 15:10 Method Of Arrival: Ambulatory kg 15:10 Acuity: NILESH 4 kg Triage Assessment: 15:13 General: Appears in no apparent distress. Behavior is calm, cooperative, appropriate kg for age, quiet. Pain: Complains of pain in left hand. Musculoskeletal: Reports pain in left hand. Musculoskeletal: Reports Pain is 8 out of 10 on a pain scale. Pt stated that she had it Xray and its not broken but it cramps, swells and is painful for months and it comes and goes. Historical: - Allergies: 15:13 GABAPENTIN; kg 15:13 Erythromycin; kg - Home Meds: 15:13 Omeprazole Oral [Active]; atorvastatin Oral [Active]; Ibuprofen Oral [Active]; aspirin kg 81 mg Oral chew [Active]; metaxalone Oral 1 tab [Active]; - PMHx: 15:13 Cerebrovascular accident; L hand deficits; Diverticulitis; GERD; Hepatitis C; High kg Cholesterol; sciatic pain; - PSHx: 15:13 Cholecystectomy; tubal ligation; kg - Immunization history:: Adult Immunizations not up to date, Client reports having NOT received the Covid vaccine. - Social history:: Smoking status: Patient reports the use of cigarette tobacco products, smokes one-half pack cigarettes per day, Patient uses street drugs, marijuana. Screenin:39 Abuse screen: Denies threats or abuse. Nutritional screening: No deficits noted. em Tuberculosis screening: No symptoms or risk factors identified. Fall Risk None identified. Assessment: 17:39 General: Appears in no apparent distress. comfortable, Behavior is calm, cooperative, em appropriate for age. Neuro: Level of Consciousness is awake, alert. Cardiovascular: Capillary refill < 3 seconds Patient's skin is warm and dry. Respiratory: Airway is patent Respiratory effort is even, unlabored, Respiratory pattern is regular, symmetrical. Derm: Skin is intact, is healthy with good turgor, Skin is pink, warm \T\ dry. Musculoskeletal: Swelling present in left hand. Vital Signs: 15:10 BP 108 / 70; Pulse 98; Resp 20; Temp 98.9(O); Pulse Ox 97% on R/A; Weight 82.55 kg (R); kg Height 5 ft. 2 in. (157.48 cm) (R); Pain 6/10; 15:10 Body Mass Index 33.29 (82.55 kg, 157.48 cm) kg ED Course: 14:23 Patient arrived in ED. am2 14:23 Sherrie Romero FNP-C is Private Physician. am2 15:13 Triage completed. kg 15:13 Arm band placed on right wrist. kg 17:30 Alfredo Gomez PA is PHCP. jmm 17:30 Adrian Adams MD is Attending Physician. jmm 17:39 Eduardo Conley, RN is Primary Nurse. em 17:39 Patient has correct armband on for positive identification. em 17:39 No provider procedures requiring assistance completed. Patient did not have IV access em during this emergency room visit. 17:44 Rubio Perez MD is Referral Physician. m Administered Medications: 17:43 Drug: HYDROcodone-acetaminophen 5 mg-325 mg 1 tabs Route: PO; em 17:52 Follow up: Response: Medication administered at discharge. em Outcome: 17:44 Discharge ordered by MD. agrawal 17:52 Discharged to home ambulatory, with family. em 17:52 Condition: stable 17:52 Discharge instructions given to patient, Instructed on discharge instructions, follow up and referral plans. medication usage, Demonstrated understanding of instructions, follow-up care, medications, Prescriptions given X 1. 17:53 Patient left the ED. em Signatures: Alfredo Gomez PA PA jmm Munoz, Edgar, RN RN em [place] [facility], [facility] Briana Kinney RN RN kg Corrections: (The following items were deleted from the chart) 15:17 15:13 Allergies: Aspirin; kg kg
[2020-09-30] MEDS ORDERED: HYDROCODONE/APAP 5/325 MG TAB ONE ×2 (18:05)
[2020-09-30 18:42] VITALS: BP 108/70; TEMP 98.9; O2SAT 97
== END 2020-09-30 17:53 | disposition home or self-care (01) ==
LOC: ER 14:22
DX: R60.9 Edema, unspecified (principal); Z91.81 History of falling; Z86.73 Personal history of transient ischemic attack (TIA), and cerebral infarction without residual deficits; F17.210 Nicotine dependence, cigarettes, uncomplicated
CPT/HCPCS: 99283